=== PATIENT | female | born 2000 | race Caucasian/White ===

== ENCOUNTER 2022-12-20 17:35 | Emergency (ER) | payer MEDICAID, SELFPAY ==
[2022-12-20 17:53] VITALS: BP 127/68; PULSE 96; RESP 16; TEMP 37.3; O2SAT 100
--- NOTE | 2022-12-20 18:38 | ED.FEMALEGU ---
HPI - Female Genitourinary General Chief complaint: Urogenital-Female Stated complaint: Possible UTI Time Seen by Provider: 12/20/22 18:33 Source: patient Mode of arrival: ambulatory Limitations: no limitations History of Present Illness HPI Narrative: Patient presents today stating, ?I have a UTI. ? Questioned, reports dysuria, frequency, or urgency. Denies hematuria, abdominal pain, back pain. She has tried no dxmx-euw-rzyvbxy medication for symptoms prior to arrival. She is not currently menstruating. States she is, ?resistant to Keflex. ? Reports history of frequent UTIs. Related Data Home Medications Medication Instructions Recorded Confirmed aspirin 325 mg tablet 325 mg DIRECTED 12/20/22 12/20/22 dextroamphetamine-amphetamine 10 10 mg DIRECTED 12/20/22 12/20/22 mg tablet sertraline 25 mg tablet 50 mg PO DAILY 12/20/22 12/20/22 Allergies Allergy/AdvReac Type Severity Reaction Status Date / Time No Known Allergies Allergy Verified 12/20/22 18:02 Review of Systems Review of Systems: CONSTITUTIONAL: Denies body aches, fever, chills, or sweats. EYES: Denies visual changes, redness, or discharge. ENT: Denies rhinorrhea, congestion, sore throat, or otalgia. CARDIOVASCULAR: Denies chest pain, palpitations, or edema. RESPIRATORY: Denies cough or dyspnea. GASTROINTESTINAL: Denies abdominal pain, nausea, vomiting, or diarrhea. GENITOURINARY:+ dysuria, urgency, frequency SKIN: Denies rash, itching, or wounds. MUSCULOSKELETAL: Denies back pain, joint pain, or myalgia. NEUROLOGIC: Denies headache, numbness, tingling, or weakness. PSYCH: Denies depression or anxiety. PMFSH Comments At time of signature, I have reviewed and agree with nursing past medical, surgical, social and family history unless otherwise noted. Please see nursing chart for further information. There is no relevant family history pertinent to the presenting complaint Exam Narrative: GENERAL: Well-appearing, well-nourished, and in no acute distress. HEAD: Normocephalic, atraumatic. EYES: EOMI. No redness or drainage. Conjunctivae normal. ENT: Mucous membranes pink and moist. NECK: Normal AROM. CHEST: No respiratory distress. Clear to auscultation. HEART: Regular rate and rhythm. No murmur appreciated. Normal peripheral pulses. ABDOMEN: Soft, nondistended, normal active bowel sounds.+ mild suprapubic tenderness.-CVAT MUSCULOSKELETAL: No bony tenderness. EXTREMITIES: Normal range of motion. No edema. SKIN: Warm, dry, no rash. Capillary refill normal. Normal skin turgor. NEURO: No focal deficits. Alert and oriented x3. Gait steady. PSYCH: Normal affect. No signs of depression or anxiety. Course Course Level of Care: Express Care Visit Vital Signs Vital signs: Vital Signs Temperature 99.1 F 12/20/22 17:53 Pulse Rate 96 12/20/22 17:53 Respiratory Rate 16 12/20/22 17:53 Blood Pressure 127/68 12/20/22 17:53 Pulse Oximetry 100 12/20/22 17:53 Oxygen Delivery Room Air 12/20/22 17:53 Temperature 99.1 F 12/20/22 17:53 Pulse Rate 96 12/20/22 17:53 Respiratory Rate 16 12/20/22 17:53 Blood Pressure 127/68 12/20/22 17:53 Pulse Oximetry 100 12/20/22 17:53 Oxygen Delivery Room Air 12/20/22 17:53 Reviewed. Pt has been instructed to follow up with her PCP regarding her elevated blood pressure today. MDM - Female Genitourinary MDM Narrative Medical decision making narrative: Symptoms and urinalysis consistent with UTI. Will treat with Bactrim. Anticipatory guidance given. Culture pending. Differential Diagnosis Differential diagnosis: Likely urinary tract infection, vaginitis, cystitis and other (Pyelonephritis, interstitial cystitis) Lab Data Attestation: I reviewed the patient's lab results. Labs: Urine Glucose Negative Reference Range: Negative Urine Bilirubin Negative
== END 2022-12-20 18:50 | disposition home or self-care (01) ==
PROVIDERS: Emergency Provider Nurse Practitioner
DX: N30.01 Acute cystitis with hematuria (principal); Z79.82 Long term (current) use of aspirin
CPT/HCPCS: 81003; 87086; 99203; G0463

== ENCOUNTER 2023-01-31 10:34 | Outpatient (CLI) | payer MEDICAID, SELFPAY ==
[2023-01-31 13:08] LABS: Basophils Percent Auto 0.8 % (0.2-1.2); Eosinophils Absolute Auto 0.1 K/mm3 (0-0.3); Eosinophils Percent Auto 2.7 % (0-4.4); Hematocrit 41.3 % (37.0-47.0); Hemoglobin 13.8 g/dL (12.0-15.0); Immature Granulocyte Absolute 0.01 K/mm3 (0.00-0.031); Immature Granulocyte Percent A 0.2 % (0-0.5); Lymphocytes Percent Auto 38.2 % (18.3-44.2); Mean Corpuscular HGB Conc 33.4 g/dl (32-36); Mean Corpuscular Hemoglobin 29.7 pg (26-34); Mean Platelet Volume 10.3 fl (7.4-10.4); Monocytes Absolute Auto 0.4 K/mm3 (0.1-0.6); Neutrophils Absolute Auto 2.6 K/mm3 (1.3-6.7); Neutrophils Percent Auto 50.1 % (45.5-73.1); Platelet Count Result 215 k/mm3 (150-375); Red Blood Count 4.64 M/mm3 (4.2-5.4); Red Cell Distribution Width 12.5 % (11.5-14.5); White Blood Count 5.2 K/mm3 (4.5-10.0)
[2023-01-31 13:16] LABS: Alanine Aminotransferase 22 U/L (6-35); Albumin Level 4.5 g/dL (3.5-5.1); Alkaline Phosphatase 49 U/L (38-126); Anion Gap 6 mmol/L (8-16); Aspartate Amino Transferase 46 U/L (14-36); Bilirubin,Total 2.1 mg/dL (0.2-1.3); Blood Urea Nitrogen 12 mg/dL (7-17); Calcium 9.4 mg/dL (8.4-10.2); Carbon Dioxide 30 mmol/L (22-30); Chloride 102 mmol/L (98-107); Cholesterol 156 mg/dL (0-200); Estimated Glomerular Filt Rate > 60; Glucose 75 mg/dL (65-110); HDL Direct 51 mg/dL; Potassium 3.9 mmol/L (3.4-5.0); Sodium 138 mmol/L (137-145); Triglycerides 100 mg/dL (<150)
[2023-01-31 13:27] LABS: LDL Cholesterol Direct 89 mg/dL
[2023-01-31 13:59] LABS: Free T4 Free Thyroxine 0.93 ng/mL (0.78-2.19)
[2023-02-04 21:34] LABS: Triiodothyronine T3 Free 3.8 pg/mL (3.0-4.7)
[2023-02-05 02:17] LABS: Thyroid Peroxidase Antibodies <1 IU/mL (<9)
== END 2023-01-31 10:35 | disposition home or self-care (01) ==
LOC: ANHGOSHLAB 10:35
PROVIDERS: PCP Family Medicine; Visit Provider Nurse Practitioner Family
DX: E80.4 Gilbert syndrome (principal); F41.9 Anxiety disorder, unspecified; D89.89 Other specified disorders involving the immune mechanism, not elsewhere classified; I73.00 Raynaud's syndrome without gangrene; F32.A Depression, unspecified; R55 Syncope and collapse; F90.9 Attention-deficit hyperactivity disorder, unspecified type; E55.9 Vitamin D deficiency, unspecified; E07.9 Disorder of thyroid, unspecified
CPT/HCPCS: 36415; 80053; 80061; 82306; 82607; 84439; 84443; 84481; 85025; 86376

== ENCOUNTER 2023-02-21 18:12 | Emergency (ER) | payer MEDICAID, SELFPAY | END 2023-02-21 19:02 | disposition home or self-care (01) | PROVIDERS: Emergency Provider Nurse Practitioner; PCP Nurse Practitioner Family | DX: J01.90 Acute sinusitis, unspecified (principal); D84.9 Immunodeficiency, unspecified; F90.9 Attention-deficit hyperactivity disorder, unspecified type; F41.9 Anxiety disorder, unspecified; F32.A Depression, unspecified | CPT/HCPCS: 99213; G0463 ==

== ENCOUNTER 2023-03-12 13:05 | Outpatient (CLI) | payer OTHER, SELFPAY ==
--- NOTE | ~2023-03-12 | US_ITS ---
EXAMINATION: US pelvic complete w TV DATE: 03/12/2023 15:05 INDICATION: Pelvic and perineal pain TECHNIQUE: Multiple transabdominal and endovaginal sonographic images of the pelvis were obtained. COMPARISON: None. FINDINGS: The uterus measures 8.5 x 4.5 x 5.2 cm. The IUD is in expected position. The endometrial co mplex measures 3 mm. The right ovary measures 2.9 x 1.5 x 2.1 cm. The left ovary measures 4.1 x 1.7 x 2.3 cm. There is normal vascular flow in the ovaries. There is no free fluid in the pelvis. IMPRESSION: 1. No sonographic correlate for the patient's symptoms. Reviewed, dictated and finalized at location A.
[2023-03-15 13:14] LABS: NIL 0.02 IU/mL; Quantiferon TB Plus, 1T NEGATIVE (NEGATIVE)
== END 2023-03-12 13:06 | disposition home or self-care (01) ==
PROVIDERS: PCP Nurse Practitioner Family; Visit Provider Nurse Practitioner Family
DX: R10.2 Pelvic and perineal pain (principal); Z30.431 Encounter for routine checking of intrauterine contraceptive device
CPT/HCPCS: 36415; 76830; 76856; 86480

== ENCOUNTER 2023-03-28 17:44 | Outpatient (CLI) | payer OTHER, SELFPAY ==
--- NOTE | ~2023-03-28 | XR_ITS ---
EXAM: XR hip LT 2V w AP pelvis DATE: 03/28/2023 17:59 HISTORY: M25.552 - Pain in left hip X 2-3 DAYS . COMPARISON: None available. FINDINGS: Normal mineralization. IUD projecting within the pelvic ring. No fracture or dislocation. No lytic or blastic lesion. Joint spaces are maintained. No erosion or periosteal change. Soft tissue s within normal limits. IMPRESSION: Normal pelvis and left hip radiograph findings. Reviewed, dictated and finalized at location K.
== END 2023-03-28 17:45 | disposition home or self-care (01) ==
LOC: ANHIMG 17:45
PROVIDERS: PCP Nurse Practitioner Family; Visit Provider Nurse Practitioner Family
DX: M25.552 Pain in left hip (principal)
CPT/HCPCS: 73502

== ENCOUNTER 2023-09-11 14:53 | Emergency (ER) | payer OTHER, SELFPAY ==
[2023-09-11 14:54] VITALS: BP 115/69; PULSE 84; RESP 20; TEMP 36.3; O2SAT 100
--- NOTE | 2023-09-11 19:31 | ED.NAVMDI ---
HPI - Nausea/Vomiting/Diarrhea General Chief complaint: Nausea/Vomiting/Diarrhea Stated complaint: /vomiting Time Seen by Provider: 09/11/23 19:02 Source: patient Limitations: no limitations History of Present Illness HPI Narrative: Patient is a 23-year-old female presents to the emergency department complaining of nausea and vomiting. Patient states that she is 7 weeks tomorrow and has an OB established but has not at her 1st visit yet and it is Dr. Conrad who she has appointment scheduled with on the of this month. Patient states that she is with an uncomplicated previous approximately 5 years ago. Patient states her last menstrual period was July 25 the patient denies any sick contacts. Patient states she began developing nausea and vomiting yesterday and has had multiple episodes daily without any ability to keep things down aside from a preformed she was acute some food down off and then subsequently threw it up later and benign she has been able to keep anything down she was concerned for dehydration and came in for further evaluation. Patient states that she did call her primary care physician who did send in a prescription for Zofran which was just picked up upon arrival to the emergency department which she has not taken any yet. Patient denies diarrhea, bloody bowel movements, vaginal bleeding, abdominal pain, recent injuries, recent illness, sore throat, nasal congestion, cough, chest pain, shortness of breath. Patient admits to history of morning sickness with her previous but did not ever require medications for this. Related Data Allergies Allergy/AdvReac Type Severity Reaction Status Date / Time No Known Allergies Allergy Verified 07/02/23 15:54 Review of Systems Review of Systems: A 10 system review of systems was completed on the patient and is negative except for what is stated in the HPI. Nursing and ancillary documentation was reviewed. [facility] Past Medical History Medical History (Updated 09/11/23 @ 20:05 by Zechariah Koehler DO) IUD surveillance removed 07/02/2023 Social History Social History (Updated 07/02/23 @ 15:57 by Tonya Holly) Years smoked: 2 Smoking status: Former smoker Substance use: never Lack of Transportation: No Lack of Food: Never True Current Housing: I Have Housing Concerned About Future Housing: No Difficulty Paying Gas/Electric Bills: No Difficulty Paying for Meds: No Currently Unemployed: No Education: High School Diploma/GED Comments At time of signature, I have reviewed and agree with nursing past medical, surgical, social and family history unless otherwise noted. Please see the nursing chart for further information. There is no relevant family history pertinent to the presenting complaint. Exam Narrative: CONST: No acute distress. Well nourished. HENMT: Head is normocephalic and atraumatic. Tacky mucous membranes. No posterior oropharynx erythema. EYES: No conjunctival icterus, injection, or pallor. PERRL. NECK: No meningeal signs. RESP: Able to speak in full sentences. Normal respiratory effort. CTAB. CARDIO: Regular rate. Regular rhythm. 2+ DP and radial pulses bilaterally. GI: Nondistended. No tenderness to palpation. Soft. : No CVA tenderness to palpation. SKIN: No rashes or lesions noted on exposed skin. NEURO: Oriented x3. Moves all extremities. EXTREM/MSK/BACK: No pedal edema. PSYCH: Normal affect. Course Vital Signs Vital signs: Vital Signs Temperature 97.3 F L 09/11/23 14:54 Pulse Rate 84 09/11/23 14:54 Respiratory Rate 09/11/23 14:54 Blood Pressure 115/69 09/11/23 14:54 Pulse Oximetry 100 09/11/23 14:54 Oxygen Delivery Room Air 09/11/23 14:54 Temperature 97.3 F L 09/11/23 14:54 Pulse Rate 84 09/11/23 14:54 Respiratory Rate 20 09/11/23 14:54 Blood Pressure 115/69 09/11/23 14:54 Pulse Oximetry 100 09/11/23 14:
[2023-09-11 19:51] LABS: Appearance Urine Clear (Clear); Bilirubin Urine Negative (Negative); Blood Urine Negative (Negative); Color Urine Yellow (Yellow); Glucose Urine UA Negative (Negative); Ketones Urine Negative (Negative); Leukocyte Esterase Ur Negative LEU/UL (Negative); Nitrate Urine Negative (Negative); Protein Urine Negative (Negative); Specific Grav Ur 1.021 (1.001-1.035)
[2023-09-11 19:53] LABS: Basophils Percent Auto 0.4 % (0.2-1.2); Eosinophils Absolute Auto 0.2 K/mm3 (0-0.3); Eosinophils Percent Auto 1.9 % (0-4.4); Hematocrit 41.3 % (37.0-47.0); Hemoglobin 13.5 g/dL (12.0-15.0); Immature Granulocyte Absolute 0.02 K/mm3 (0.00-0.031); Immature Granulocyte Percent A 0.3 % (0-0.5); Lymphocytes Absolute Auto 2.25 K/mm3 (0.9-3.2); Lymphocytes Percent Auto 28.2 % (18.3-44.2); Mean Corpuscular HGB Conc 32.7 g/dl (32-36); Mean Corpuscular Hemoglobin 28.4 pg (26-34); Mean Corpuscular Volume 86.9 fl (80-100); Mean Platelet Volume 9.9 fl (7.4-10.4); Monocytes Absolute Auto 0.6 K/mm3 (0.1-0.6); Monocytes Percent Auto 7.3 % (2.6-8.5); Neutrophils Percent Auto 61.9 % (45.5-73.1); Platelet Count Result 223 k/mm3 (150-375); Red Blood Count 4.75 M/mm3 (4.2-5.4)
[2023-09-11 19:54] LABS: Add Urine Microscopic? NO
[2023-09-11 20:06] LABS: Alanine Aminotransferase 16 U/L (6-35); Albumin Level 4.3 g/dL (3.5-5.1); Alkaline Phosphatase 47 U/L (38-126); Anion Gap 7 mmol/L (8-16); Aspartate Amino Transferase 24 U/L (14-36); Bilirubin,Total 1.6 mg/dL (0.2-1.3); Blood Urea Nitrogen 8 mg/dL (7-17); Calcium 9.4 mg/dL (8.4-10.2); Carbon Dioxide 27 mmol/L (22-30); Chloride 102 mmol/L (98-107); Estimated CRCL calculation 108 ml/min; Estimated Glomerular Filt Rate > 60; Glucose 91 mg/dL (65-110); Lipase 78 U/L (23-300); Potassium 3.8 mmol/L (3.4-5.0); Sodium 136 mmol/L (137-145)
[2023-09-11] MEDS: SODIUM CHLORIDE 0.9% IV 1,000 ML 999 ML IV CONT ×2 (20:34→20:35)
[2023-09-11] MEDS: ONDANSETRON INJ 4 MG/2 ML VIAL IV PUSH (20:35)
--- NOTE | 2023-09-11 21:14 | PC.NURSE ---
Pt ate a bag of chips and drank a glass of water. Pt denies any n/v. No complaints at this time.
[2023-09-11 22:35] VITALS: BP 121/68; PULSE 84; RESP 16; O2SAT 98
== END 2023-09-11 22:35 | disposition home or self-care (01) ==
PROVIDERS: Emergency Provider Student in an Organized Health Care Education/Training Program; PCP Nurse Practitioner Family
DX: O21.9 Vomiting of pregnancy, unspecified (principal); Z87.891 Personal history of nicotine dependence; Z3A.01 Less than 8 weeks gestation of pregnancy
CPT/HCPCS: 36415; 80053; 81003; 83690; 83735; 84702; 85025; 96361; 96374; 99284; J2405; J7030

== ENCOUNTER 2023-10-03 08:41 | Outpatient (CLI) | payer OTHER, SELFPAY ==
--- NOTE | ~2023-10-03 | US_ITS ---
EXAMINATION: US OB <= 14 weeks fetus DATE: 10/03/2023 10:17 INDICATION: Amenorrhea, unspecified. TECHNIQUE: Real-time transabdominal and transvaginal pelvic ultrasound was performed. COMPARISON: None. FINDINGS: TRANSABDOMINAL ULTRASOUND: The uterus measures 11.0 x 6.2 x 7.4 cm. TRANSVAGINAL ULTRASOUND: There is an intrauterine gestational sac. A yolk sac is identified. The fet al crown rump length measures 3.1 cm, which correlates with an estimated gestational age of 10 weeks and 0 day(s) (+/-) 6 day(s). heart motion is identified measuring 165 beats per minute (bpm) by M-mode Doppler. The right ovary measures 2.7 x 1.7 x 2.2 cm. The left ovary measures 4.2 x 2.0 x 2.9 cm. There is no free fluid in the pelvis. IMPRESSION: 1. Single living intrauterine gestation with estimated date of delivery of 04/30/24. Reviewed, dictated and finalized at location E. AL EFFECTS EDITOR IMPRESSION: 1. Single living intrauterine gestation with estimated date of delivery of 04/11 10/03.
[2023-10-03 09:19] LABS: Basophils Percent Auto 0.5 % (0.2-1.2); Eosinophils Absolute Auto 0.1 K/mm3 (0-0.3); Eosinophils Percent Auto 1.6 % (0-4.4); Hematocrit 40.9 % (37.0-47.0); Hemoglobin 13.4 g/dL (12.0-15.0); Immature Granulocyte Absolute 0.01 K/mm3 (0.00-0.031); Immature Granulocyte Percent A 0.2 % (0-0.5); Lymphocytes Absolute Auto 1.36 K/mm3 (0.9-3.2); Mean Corpuscular HGB Conc 32.8 g/dl (32-36); Mean Corpuscular Hemoglobin 28.5 pg (26-34); Mean Platelet Volume 9.6 fl (7.4-10.4); Monocytes Absolute Auto 0.4 K/mm3 (0.1-0.6); Monocytes Percent Auto 5.7 % (2.6-8.5); Neutrophils Absolute Auto 4.3 K/mm3 (1.3-6.7); Platelet Count Result 202 k/mm3 (150-375); White Blood Count 6.2 K/mm3 (4.5-10.0)
[2023-10-03 10:11] LABS: HIV 1/2 Ab P24 Ag Result Negative (Negative)
[2023-10-03 10:18] LABS: Hepatitis B Surface Antigen Negative (Negative)
[2023-10-03 10:24] LABS: Rubella IgG Antibody > 110.0 IU/ML
[2023-10-04 14:45] LABS: Rapid Plasma Reagin Non-Reactive (NonReactive)
[2023-10-08 09:25] LABS: CMV IgG Antibody <0.60 U/mL (<0.60)
[2023-10-11 19:27] LABS: CF Result NEGATIVE (NEGATIVE); Ethnicity W; SMA 2.0 RISK VARIANT NOT DETECTED
[2023-10-17 15:33] LABS: SMA Results Received Yes
== END 2023-10-03 08:42 | disposition home or self-care (01) ==
PROVIDERS: PCP Nurse Practitioner Family; Visit Provider Student in an Organized Health Care Education/Training Program
DX: N94.89 Other specified conditions associated with female genital organs and menstrual cycle (principal); N91.2 Amenorrhea, unspecified
CPT/HCPCS: 36415; 76801; 81220; 81329; 84702; 85025; 86592; 86644; 86703; 86747; 86762; 86787; 86850; 86900; 86901; 87086; 87340; G0432

== ENCOUNTER 2023-10-04 13:34 | Emergency (ER) | payer OTHER, SELFPAY ==
[2023-10-04] VITALS (16 sets, daily range): BP systolic 93–126; BP diastolic 59–84; PULSE 66–97; RESP 14–20; TEMP 36.6; O2SAT 99–100
--- NOTE | ~2023-10-04 | CT_ITS ---
EXAMINATION: CTA chest PE protocol DATE: 10/04/2023 16:41 INDICATION: Chest pain. Shortness of breath. TECHNIQUE: Computed tomography angiography (CTA) of the chest was performed with 100 mL Omnipaque-350 intravenous contrast timed to evaluate the pulmonary arteries. Coronal maximum intensity projection 3D-reconstructions were created by the technologist. Automated exposure control and iterative reconst ruction technique were employed. The dose-length product was 128.74 mGy-cm. COMPARISON: Chest 2 views 10/04/2023 FINDINGS: There is no pneumonia or pleural effusion. The heart size is normal. No pericardial effusio n. There is no pulmonary embolus. The bones are unremarkable. IMPRESSION: 1. No pulmonary embolus. Reviewed, dictated and finalized at location E. CTOR OF LABORATORY OPERATIONS IMPRESSION: 1. No pulmonary embolus.
--- NOTE | ~2023-10-04 | XR_ITS ---
EXAMINATION: XR chest 2V 10/04/2023 14:15 INDICATION: Chest tightness and shortness of breath PROCEDURE: 2 view chest COMPARISON:No prior studies for comparison. FINDINGS: The lungs are clear. The cardiomediastinal silhouette is within normal limits. There are no pleural effusions. There is no pneumothorax suspected. IMPRESSION: 1: NO ACUTE CARDIOPULMONARY DISEASE. Reviewed, dictated and finalized at location L. H BLEACHING RANGE BACK TENDER
--- NOTE | 2023-10-04 13:38 | ECG_ITS ---
Measurements Intervals [place] Rate: 101 P: 78 IA: 134 QRS: 92 QRSD: 89 T: 31 QT: 338 QTc: 440 Interpretive Statements SINUS TACHYCARDIA RIGHT AXIS DEVIATION INCOMPLETE RIGHT BUNDLE BRANCH BLOCK CONSIDER ANTERIOR INFARCT, AGE INDETERMINATE BORDERLINE ST-T WAVE ABNORMALITY- INFERIOR LEADS ABNORMAL ECG NO PREVIOUS ECG AVAILABLE FOR COMPARISON Electronically Signed On 10-04-2023 13:56:06 ASSISTANT PROFESSOR OF PHILOSOPHY by Darnell Murodck D.O.
[2023-10-04 14:00] LABS: Basophils Percent Auto 0.2 % (0.2-1.2); Eosinophils Absolute Auto 0.1 K/mm3 (0-0.3); Eosinophils Percent Auto 1.5 % (0-4.4); Hematocrit 35.7 % (37.0-47.0); Hemoglobin 12.1 g/dL (12.0-15.0); Immature Granulocyte Absolute 0.03 K/mm3 (0.00-0.031); Immature Granulocyte Percent A 0.4 % (0-0.5); Lymphocytes Absolute Auto 1.92 K/mm3 (0.9-3.2); Lymphocytes Percent Auto 22.7 % (18.3-44.2); Mean Corpuscular HGB Conc 33.9 g/dl (32-36); Mean Corpuscular Hemoglobin 28.9 pg (26-34); Mean Corpuscular Volume 85.4 fl (80-100); Mean Platelet Volume 9.5 fl (7.4-10.4); Monocytes Absolute Auto 0.6 K/mm3 (0.1-0.6); Monocytes Percent Auto 6.8 % (2.6-8.5); Neutrophils Absolute Auto 5.8 K/mm3 (1.3-6.7); Neutrophils Percent Auto 68.4 % (45.5-73.1); Platelet Count Result 197 k/mm3 (150-375); Red Blood Count 4.18 M/mm3 (4.2-5.4); Red Cell Distribution Width 12.9 % (11.5-14.5); White Blood Count 8.4 K/mm3 (4.5-10.0)
[2023-10-04 14:11] LABS: Partial Thromboplastin Time 28.9 SECONDS (22.3-36.8); Prothrombin Time 13.2 Seconds (11.1-14.7)
[2023-10-04 14:12] LABS: Alanine Aminotransferase 14 U/L (6-35); Albumin Level 4.1 g/dL (3.5-5.1); Alkaline Phosphatase 40 U/L (38-126); Anion Gap 7 mmol/L (8-16); Aspartate Amino Transferase 24 U/L (14-36); Bilirubin,Total 0.9 mg/dL (0.2-1.3); Blood Urea Nitrogen 14 mg/dL (7-17); Calcium 9.1 mg/dL (8.4-10.2); Carbon Dioxide 25 mmol/L (22-30); Chloride 102 mmol/L (98-107); Estimated CRCL calculation 112 ml/min; Estimated Glomerular Filt Rate > 60; Glucose 103 mg/dL (65-110); Lipase 92 U/L (23-300); Potassium 4.1 mmol/L (3.4-5.0); Sodium 134 mmol/L (137-145)
[2023-10-04 14:21] LABS: Troponin I < 0.012 ng/mL (0.000-0.034)
--- NOTE | 2023-10-04 14:34 | ED.GENADULT ---
HPI - General Adult General Chief complaint: Arrhythmia/Palpitations Stated complaint: heart pal Time Seen by Provider: 10/04/23 14:15 Source: patient and family (partner) Mode of arrival: ambulatory Limitations: no limitations History of Present Illness HPI narrative: 23 yo female at 10w1d GA by LMP 07/25/23 presents with chest pain and shortness of breath today while at work. She describes the chest symptoms as a pressure. No underlying respiratory or cardiac issues although currently undergoing work up and assessment for possible POTS with her PCP and sees rheumatology. She was experiencing heart palpitations, worse with exertion. 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 has been confirmed to be intrauterine by verbal report as patient had an US yesterday. Follows with OBGyn Dr Hill. Has not worn an event/Holter monitor. She also notes she was experiencing some mild RLQ pain earlier today. No vaginal bleeding. States it felt different than round ligament pain. Has not yet been able to take acetaminophen as didn't have any at work. No lower extremity edema. [place] nauseated earlier this morning but this has been typical and was better after Zofran. Has an appetite now. No vomiting or diarrhea. States she had a low grade fever 1 week ago but not since. Has had some intermittent constipation but this resolved; LBM yesterday. Has an occasional / rare cough. Related Data Home Medications Medication Instructions Recorded Confirmed vits no.126-ferrous fum tablet PO 09/28/23 09/28/23 28 mg iron-folic acid 800 mcg tablet (Classic ) Allergies Allergy/AdvReac Type Severity Reaction Status Date / Time No Known Allergies Allergy Verified 09/28/23 09:12 [facility] Past Medical History Medical History (Updated 10/05/23 @ 00:00 by Dariela Wick) IUD surveillance removed 07/02/2023 Suppression of menses Social History Social History Years smoked: 2 Smoking status: Former smoker Alcohol intake: former Substance use: never Do You Feel Safe in your Home?: Yes Lack of Transportation: No Lack of Food: Never True Current Housing: I Have Housing Concerned About Future Housing: No Difficulty Paying Gas/Electric Bills: No Difficulty Paying for Meds: No Currently Unemployed: No Education: High School Diploma/GED Difficulty w/ Childcare or Family Care: No Living arrangements: with family Occupation/Education: occupation 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 HEAD: Normocephalic, atraumatic. EYES: Non injected, non icteric ENT: Nares clear, no rhinorrhea or epistaxis. NECK: Supple. CHEST: Clear to auscultation. No respiratory distress. Speaking in full sentences. HEART: Regular rate and rhythm. . ABDOMEN: Soft, nondistended. No TTP x4 quadrants. EXTREMITIES: Normal range of motion. No edema bilaterally. SKIN: Warm, dry, no rash. NEURO: No focal deficits. Alert and oriented x3. PSYCH: Normal mood and affect. Course Vital Signs Vital signs: Vital Signs Temperature 97.9 F 10/04/23 13:42 Pulse Rate 97 10/04/23 13:42 Respiratory Rate 15 10/04/23 13:42 Blood Pressure 126/76 10/04/23 13:42 Pulse Oximetry 100 10/04/23 13:42 Oxygen Delivery Room Air 10/04/23 13:42 Temperature 97.9 F 10/04/23 13:42 Pulse Rate 83 10/04/23 16:30 Respiratory Rate 20 10/04/23 16:30 Blood Pressure 105/59 L 10/04/23 16:30 Pulse Oximetry 100 10/04/23 16:30 Oxygen Delivery Room Air 10/04/23 13:42 Medical Decision Making MDM Narrative Medical decision making narrative: Patient is a 23 yo female at 10w1d GA by LMP 07/25/23 and with a confirmed IUP by verbal
[2023-10-04 15:02] LABS: D Dimer 0.56 ug/mL (<0.48)
[2023-10-04] MEDS: ACETAMINOPHEN 325 MG TABLET 650 MG PO (15:06)
[2023-10-04 15:22] LABS: Influenza A QL RT-PCR Negative (Negative); Influenza B QL RT-PCR Negative (Negative); RSV RNA, RT-PCR Negative (Negative); SARS-CoV-2 RNA PCR Negative (Negative)
--- NOTE | 2023-10-04 16:53 | ECG_ITS ---
Measurements Intervals [place] Rate: 70 P: 52 ME: 145 QRS: 82 QRSD: 88 T: 44 QT: 397 QTc: 429 Interpretive Statements SINUS RHYTHM INCOMPLETE RIGHT BUNDLE BRANCH BLOCK BORDERLINE R WAVE PROGRESSION, ANTERIOR LEADS BORDERLINE ST-T WAVE ABNORMALITY- ANTERIOR LEADS BASELINE WANDER- AVR, AVL, AVF BORDERLINE ECG COMPARED TO ECG 10/04/2023 13:41:39 SINUS RHYTHM NOW PRESENT Electronically Signed On 10-05-2023 15:55:30 GENETIC COUNSELOR by Darnell Murdock D.O.
[2023-10-04 17:38] LABS: Troponin I < 0.012 ng/mL (0.000-0.034)
== END 2023-10-04 18:18 | disposition home or self-care (01) ==
PROVIDERS: Emergency Medicine; Emergency Provider Student in an Organized Health Care Education/Training Program; PCP Nurse Practitioner Family
DX: O26.891 Other specified pregnancy related conditions, first trimester (principal); R07.89 Other chest pain; R06.02 Shortness of breath; R10.31 Right lower quadrant pain; Z20.822 Contact with and (suspected) exposure to COVID-19; Z87.891 Personal history of nicotine dependence; R00.0 Tachycardia, unspecified; I45.10 Unspecified right bundle-branch block; R94.31 Abnormal electrocardiogram [ECG] [EKG]
CPT/HCPCS: 36415; 71046; 71275; 80053; 83690; 84484; 85025; 85380; 85610; 85730; 87637; 93005; 99284; A9270; Q9967

== ENCOUNTER 2023-10-18 18:57 | Emergency (ER) | payer OTHER, SELFPAY ==
[2023-10-18 19:24] VITALS: BP 100/61; PULSE 85; RESP 18; TEMP 36.6; O2SAT 100
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
[2023-10-18 19:30] VITALS: BP 100/61; PULSE 85; RESP 18; TEMP 36.6; O2SAT 100
== END 2023-10-18 19:36 | disposition short-term general hospital (02) ==
PROVIDERS: Emergency Provider Nurse Practitioner; PCP Nurse Practitioner Family
DX: O9A.211 Injury, poisoning and certain other consequences of external causes complicating pregnancy, first trimester (principal); Z3A.12 12 weeks gestation of pregnancy; S09.90XA Unspecified injury of head, initial encounter; Y04.2XXA Assault by strike against or bumped into by another person, initial encounter; Y99.0 Civilian activity done for income or pay; O99.891 Other specified diseases and conditions complicating pregnancy; Z3A.00 Weeks of gestation of pregnancy not specified; R51.9 Headache, unspecified; H53.9 Unspecified visual disturbance; O21.9 Vomiting of pregnancy, unspecified; Z87.891 Personal history of nicotine dependence
CPT/HCPCS: 99213; G0463

== ENCOUNTER 2023-10-18 19:51 | Emergency (ER) | payer OTHER, SELFPAY ==
--- NOTE | ~2023-10-18 | CT_ITS ---
Noncontrast CT scan of the cervical spine Technique: Multiple contiguous axial [address] images of the cervical spine were obtained and rec onstructed in 2D sagittal and coronal planes on the acquisition scanner. Dose reduction technique was used on this scan by utilizing automated exposure control, adjustment of the mA and/or kV according to patient size. The dose-length product (DLP) was 129.38 mGy-cm. Clinical History: Pain Findings: No fractures or dislocations. Unremarkable visualized bony structures. The intervertebral disc spaces are preserved. No prevertebral soft tissue swelling. Impression: No fracture or subluxation of the cervical spine. Reviewed, dictated and finalized at location . ESSOR OF MEDICINE Impression: No fracture or subluxation of the cervical spine.
--- NOTE | ~2023-10-18 | CT_ITS ---
Non-contrast Head CT History: Head injury Technique: Axial non-contrast imaging of the brain was performed. Dose reduction technique was used on this scan by utilizing automated exposure control and iterative reconstruction technique. The dose -length product (DLP) was 605.33 mGy-cm. Findings: There is no evidence of intracranial hemorrhage, mass lesion, or acute infarct. Brain par enchyma appears normal. The ventricles and subarachnoid spaces are normal in size. The calvarium ap pears normal. The visualized paranasal sinuses and mastoid air cells are clear. Impression: No significant abnormality seen. Reviewed, dictated and finalized at [facility]. EM SUPPORT TECHNICIAN Impression: No significant abnormality seen.
[2023-10-18 20:22] VITALS: BP 118/67; PULSE 87; RESP 14; TEMP 36.3; O2SAT 100
[2023-10-18 23:47] VITALS: BP 98/55; PULSE 70; RESP 14; TEMP 36.3; O2SAT 100
[2023-10-19 00:26] VITALS: O2SAT 98
--- NOTE | 2023-10-19 00:51 | PC.NURSE ---
Pt to CT at this time.
[2023-10-19] MEDS: SODIUM CHLORIDE 0.9% IV 1,000 ML 999 ML IV CONT (01:42)
[2023-10-19] MEDS: METOCLOPRAMIDE HCL INJ 10 MG/2 ML VIAL IV PUSH (01:42)
[2023-10-19] MEDS: diphenhydrAMINE HCl INJ 50 MG/ML VIAL IV PUSH (01:42)
[2023-10-19 01:44] VITALS: BP 103/63; PULSE 78; RESP 19; O2SAT 98
[2023-10-19 01:53] LABS: Basophils Percent Auto 0.4 % (0.2-1.2); Eosinophils Absolute Auto 0.2 K/mm3 (0-0.3); Eosinophils Percent Auto 3.1 % (0-4.4); Hematocrit 36.9 % (37.0-47.0); Hemoglobin 12.2 g/dL (12.0-15.0); Immature Granulocyte Absolute 0.01 K/mm3 (0.00-0.031); Immature Granulocyte Percent A 0.1 % (0-0.5); Lymphocytes Absolute Auto 1.97 K/mm3 (0.9-3.2); Lymphocytes Percent Auto 26.8 % (18.3-44.2); Mean Corpuscular HGB Conc 33.1 g/dl (32-36); Mean Corpuscular Hemoglobin 28.6 pg (26-34); Mean Corpuscular Volume 86.6 fl (80-100); Mean Platelet Volume 10.1 fl (7.4-10.4); Monocytes Absolute Auto 0.6 K/mm3 (0.1-0.6); Monocytes Percent Auto 7.5 % (2.6-8.5); Neutrophils Absolute Auto 4.6 K/mm3 (1.3-6.7); Neutrophils Percent Auto 62.1 % (45.5-73.1); Platelet Count Result 197 k/mm3 (150-375); Red Blood Count 4.26 M/mm3 (4.2-5.4); Red Cell Distribution Width 13.4 % (11.5-14.5); White Blood Count 7.4 K/mm3 (4.5-10.0)
[2023-10-19 02:01] LABS: Appearance Urine Turbid (Clear); Bacteria Urine None Seen /hpf; Bilirubin Urine Negative (Negative); Blood Urine Negative (Negative); Color Urine Yellow (Yellow); Glucose Urine UA Negative (Negative); Ketones Urine Negative (Negative); Leukocyte Esterase Ur Negative LEU/UL (Negative); Nitrate Urine Negative (Negative); Non Pathogenic Casts 0-2; Protein Urine Negative (Negative); RBC Urine 0-2 /hpf (0-2); Specific Grav Ur 1.022 (1.001-1.035); Squamous Epithelial Cell Urine None seen /hpf (Few); WBC Urine 0-5 /hpf; pH Urine 8.5 (5.0-9.0)
[2023-10-19 02:07] LABS: Alanine Aminotransferase 14 U/L (6-35); Albumin Level 3.9 g/dL (3.5-5.1); Alkaline Phosphatase 39 U/L (38-126); Anion Gap 7 mmol/L (8-16); Aspartate Amino Transferase 28 U/L (14-36); Blood Urea Nitrogen 11 mg/dL (7-17); Calcium 9.3 mg/dL (8.4-10.2); Carbon Dioxide 23 mmol/L (22-30); Chloride 104 mmol/L (98-107); Estimated CRCL calculation 95 ml/min; Estimated Glomerular Filt Rate > 60; Glucose 80 mg/dL (65-110); Potassium 3.9 mmol/L (3.4-5.0); Sodium 134 mmol/L (137-145)
[2023-10-19 02:12] LABS: Add Urine Microscopic? NO
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
[2023-10-19 02:51] VITALS: BP 112/70; PULSE 65; RESP 19; O2SAT 100
== END 2023-10-19 02:52 | disposition home or self-care (01) ==
PROVIDERS: Emergency Provider Emergency Medicine; PCP Nurse Practitioner Family
DX: O9A.211 Injury, poisoning and certain other consequences of external causes complicating pregnancy, first trimester (principal); S06.0X0A Concussion without loss of consciousness, initial encounter; Z87.891 Personal history of nicotine dependence; Z3A.12 12 weeks gestation of pregnancy; W51.XXXA Accidental striking against or bumped into by another person, initial encounter
CPT/HCPCS: 36415; 70450; 72125; 80053; 81003; 85025; 96361; 96374; 96375; 99284; J1200; J2765; J7030

== ENCOUNTER 2023-12-13 10:58 | Observation (INO) | payer OTHER, SELFPAY ==
[2023-12-13 11:15] VITALS: BP 108/60; PULSE 69
[2023-12-13 11:30] VITALS: BP 105/59; PULSE 83
[2023-12-13 11:45] VITALS: BP 102/56; PULSE 73
[2023-12-13 12:21] LABS: Appearance Urine Clear (Clear); Bilirubin Urine Negative (Negative); Blood Urine Negative (Negative); Color Urine Yellow (Yellow); Glucose Urine UA Negative (Negative); Ketones Urine Negative (Negative); Leukocyte Esterase Ur Trace LEU/UL (Negative); Nitrate Urine Negative (Negative); Protein Urine Negative (Negative); Specific Grav Ur 1.014 (1.001-1.035); Urobilinogen Urine 0.2 mg/dL (<2.0)
[2023-12-13 13:04] LABS: Add Urine Microscopic? YES; RBC Urine 0-2 /hpf (0-2)
[2023-12-13 13:05] LABS: Bacteria Urine 2+ /hpf; Squamous Epithelial Cell Urine Few /hpf (Few); WBC Urine 0-5 /hpf (0-3)
--- NOTE | 2023-12-13 14:34 | OBADM ---
This patient, Tyree Gilbert, admitted to the OB room OB Post 116 for observation. Patient/family oriented to hospital policies and general routines including ID bracelet, bed and alarms, visiting hours, pain management, procedures, bathroom and other care routines, personal items, smoking policy, room service/diet, and visiting hours. Patient/Family are encouraged to report perceived risks to care and to ask questions if they do not understand what they are told or what they should do.
--- NOTE | 2023-12-14 09:36 | P.PNOB_ITS ---
OB - Triage/Final Diagnosis Visit Information Date of evaluation: 12/13/23 Reason for evaluation: threatened labor Comments/Additional reasons for admission: I have assessed the risk for this patient, Tyree Gilbert, and determined that she would benefit from observation care. Evaluation Laboratory results: Laboratory Tests 12/13/23 11:56 Urine Color Yellow Urine Appearance Clear Urine pH 7.0 Ur Specific [place] 1.014 Urine Protein Negative Urine Glucose (UA) Negative Urine Ketones Negative Ur Blood (Man) Negative Urine Nitrate Negative Urine Bilirubin Negative Urine Urobilinogen 0.2 Ur Leukocyte Esterase Trace H Urine RBC 0-2 Urine WBC 0-5 Ur Squamous Epith Cells Few Urine Bacteria 2+ H Vital signs: Vital Signs - 24 hr 12/13/23 11:15 12/13/23 11:30 12/13/23 11:45 Pulse Rate 69 83 73 Blood Pressure 108/60 105/59 L 102/56 L Oxygen Delivery 12/13/23 10:58 Pulse Rate Blood Pressure Oxygen Delivery Room Air
== END 2023-12-13 13:00 | disposition home or self-care (01) ==
PROVIDERS: Admitting Provider Student in an Organized Health Care Education/Training Program; PCP Nurse Practitioner Family; Visit Provider Student in an Organized Health Care Education/Training Program
DX: O47.9 False labor, unspecified (principal); Z3A.00 Weeks of gestation of pregnancy not specified
CPT/HCPCS: 81001; 87086; G0378; G0379

== ENCOUNTER 2023-12-18 10:59 | Outpatient (CLI) | payer OTHER, SELFPAY ==
--- NOTE | ~2023-12-18 | US_ITS ---
EXAMINATION: US OB /maternal detail DATE: 12/18/2023 12:34 INDICATION: Encounter for supervision of normal TECHNIQUE: Multiple obstetric sonographic images performed. FINDINGS: There is a single living fetus in vertex presentation. The placenta is anterior and not low-lying wi th caudal margin 5.9 cm from the internal cervical os. Amniotic fluid volume is subjectively normal. Deepest vertical pocket measurement of 4.9 cm which is normal. heart rate of 132 beats per rome te. The following anatomy was identified as normal: Spine Heart Diaphragm Stomach Kidneys Bladder 3 vessel cord and cord insertion Bilateral upper and lower extremities including hands and feet The images of the head are obtained in suboptimal oblique projection which limits evaluation. O n the cine images the cerebellum, cisterna magna, nuchal fold, ventricles, choroid plexus and falx ar e normal. Normal cavum septum pellucidum unable to be definitively established. Normal nasal bone and no evident defect at the upper lip although again evaluation is suboptimal.. The following biometric data were obtained: BPD: 5.2 cm -> 21 weeks 5 days Head circumference: 19.6 cm -> 21 weeks 6 days Abdominal circumference: 16.0 cm -> 21 weeks 1 days Femur length: 3.1 cm -> 19 weeks 3 days These measurements are concordant. Head circumference to abdominal circumference ratio: 1.23 (normal range 1.06-1.25). Estimated weight: 361 g (+/-) 54 g. or 13 oz. (+/-) 2 oz. IMPRESSION: 1. Single living fetus with vertex presentation with heart rate of 132 bpm. 2. Biometric data concordant within 1 day of the previously estimated gestational age by ultrasound o f 20 weeks 1 day(s) with ultrasound estimated date of delivery (SERGIO) of 04/30/24 based upon the [facility] ultrasound performed at this institution on 10/03/2023. Estimated weight is 29th percentile by Hadlock criteria when 04/30/2024 is used as the SERGIO. Please correlate with clinical information or ea [facility] ultrasounds for most accurate SERGIO. 3. Normal anatomic survey excluding the head. No definitive abnormalities identified at the [facility] however assessment is significantly limited by positioning with evaluation based upon assessm ent on cine images in nonstandard projections. Reviewed, dictated and finalized at location B. IMPRESSION: 1. Single living fetus with vertex presentation with heart rate of 132 b pm. 2. Biometric data concordant within 1 day of the previously estimated gestation al age by ultrasound of 20 weeks 1 day(s) with ultrasound estimated date of del antony (SERGIO) of 04/30/24 based upon the earlier ultrasound performed at this inst itution on 10/03/2023. Estimated weight is 29th percentile by Hadlock crit erotf when 04/30/2024 is used as the SERGIO. Please correlate with clinical informat ion or earlier ultrasounds for most accurate SERGIO. 3. Normal anatomic survey excluding the head. No definitive abnormalities identified at the head however assessment is significantly limited by po sitioning with evaluation based upon assessment on cine images in nonstandard p rojections.
== END 2023-12-18 11:00 | disposition home or self-care (01) ==
PROVIDERS: PCP Nurse Practitioner Family; Visit Provider Student in an Organized Health Care Education/Training Program
DX: Z34.90 Encounter for supervision of normal pregnancy, unspecified, unspecified trimester (principal); Z3A.20 20 weeks gestation of pregnancy
CPT/HCPCS: 76805

== ENCOUNTER 2024-01-03 17:07 | Emergency (ER) | payer OTHER, SELFPAY ==
[2024-01-03 17:21] VITALS: BP 112/61; PULSE 91; RESP 18; TEMP 36.3; O2SAT 100
--- NOTE | 2024-01-03 17:24 | ECG_ITS ---
SEE SCANNED COPY FOR CONFIRMED REPORT MTDD
--- NOTE | 2024-01-03 17:24 | ED.URI ---
HPI - URI/Sore Throat General Chief Complaint: Upper Respiratory Infection Stated Complaint: congestion,chest pain Time Seen by Provider: 01/03/24 17:20 Source: patient Mode of arrival: ambulatory Limitations: no limitations History of Present Illness HPI Narrative: Tyree is a 23-year-old female patient presenting to the clinic today with complaints of sore throat, cough, and congestion for the past 5 days. She denies any fevers/chills. Feels as though there is draining going in the back of her throat. States that she developed some chest pain today when taking deep breaths. States that the pain does go weight when she holds her breath. Pain is to the bilateral ribs just below the breast and in the center of her chest. States it is a burning/stabbing pain. Pain does not radiate. History of anticardiolipin antibody syndrome. Takes 2 baby aspirins a day for this. Denies any shortness of breath. 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 MD elicited complaint: cough, sore throat, nasal congestion and other (Chest discomfort) Related Data Home Medications Medication Instructions Recorded Confirmed sertraline 50 mg tablet 50 mg PO DAILY 11/30/23 01/03/24 aspirin 81 mg tablet 162 mg PO DAILY 01/03/24 Allergies Allergy/AdvReac Type Severity Reaction Status Date / Time No Known Allergies Allergy Verified 01/03/24 17:19 Review of Systems Review of Systems: Pertinent positives per HPI. Patient denies any fever, chills, rash, headache, visual changes, dizziness, cough, shortness of breath, chest pain, palpitations, nausea, vomiting, diarrhea, constipation, abdominal pain, or any urinary issues. [facility] Past Medical History Medical History IUD surveillance removed 07/02/2023 Suppression of menses Social History Social History Years smoked: 2 Smoking status: Former smoker Alcohol intake: former Substance use: never Do You Feel Safe in your Home?: Yes Lack of Transportation: No Lack of Food: Never True Current Housing: I Have Housing Concerned About Future Housing: No Difficulty Paying Gas/Electric Bills: No Difficulty Paying for Meds: No Currently Unemployed: No Education: High School Diploma/GED Difficulty w/ Childcare or Family Care: No Living arrangements: with family 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 There is no relevant family history pertinent to the patient complaint. Exam Narrative: General: Well-developed, well nourished, in no apparent distress Head: Normocephalic, atraumatic Eyes: Pupils equally round and reactive to light bilaterally, EOM intact, sclera and conjunctive clear, no discharge, lids normal Ears: TMs intact and clear, ear canals clear, no drainage, grossly hearing normal. Nose: Nares patent, clear discharge, no inflammation, no sinus tenderness. Mouth: Oral pharynx red without lesions or masses, good dentition, MMM. Neck: Supple, trachea midline, no enlargement of anterior or posterior cervical nodes, no thyroid masses or goiter palpable. Chest wall: Even rise and fall of the chest wall, no bruising or swelling noted, tenderness to palpation to the chest wall-midsternal and to the bilateral lateral chest wall below the breast Cardio: Regular rate and rhythm, s1 and s2 normal, no murmur appreciated. Resp: Clear to auscultation bilaterally, no rhonchi, rales, wheezing or rubs Course Course Emergency Course: Portions of this record may have been created with voice recognition software. Level of Care: Express Care Visit Vital Signs Vital signs: Vi
== END 2024-01-03 18:00 | disposition home or self-care (01) ==
PROVIDERS: Emergency Provider Nurse Practitioner Family; PCP Nurse Practitioner Family
DX: O99.891 Other specified diseases and conditions complicating pregnancy (principal); M94.0 Chondrocostal junction syndrome [Tietze]; O99.512 Diseases of the respiratory system complicating pregnancy, second trimester; Z3A.23 23 weeks gestation of pregnancy; J06.9 Acute upper respiratory infection, unspecified; Z20.822 Contact with and (suspected) exposure to COVID-19; Z79.82 Long term (current) use of aspirin
CPT/HCPCS: 87081; 87426; 87804; 87880; 93005; 99213; G0463

== ENCOUNTER 2024-01-08 21:57 | Observation (INO) | payer OTHER, SELFPAY ==
[2024-01-08] VITALS (13 sets, daily range): BP systolic 108–114; BP diastolic 64–68; PULSE 72–88; O2SAT 98–100; BMI 22.5
--- NOTE | 2024-01-08 21:57 | PC.NURSE ---
Pt arrives to unit with abdominal pain.
--- NOTE | 2024-01-08 22:24 | OBADM ---
This patient, Tyree Gilbert, admitted to the OB room OB Post 117 for observation. Patient/family oriented to hospital policies and general routines including ID bracelet, bed and alarms, visiting hours, pain management, procedures, bathroom and other care routines, personal items, smoking policy, room service/diet, and visiting hours. Patient/Family are encouraged to report perceived risks to care and to ask questions if they do not understand what they are told or what they should do.
--- NOTE | 2024-01-08 23:14 | PC.NURSE ---
Called Dr. Desouza, update on pt, abdominal pain around belly button, tracing, and vital signs. Orders received to discharge pt with instructions to take Tylenol and drink fluids, to keep next scheduled appointment, and when to return to the unit.
--- NOTE | 2024-01-08 23:42 | PC.NURSE ---
Pt discharged with instructions to take Tylenol, drink fluids, call the office tomorrow with questions on work activity restrictions, keep next scheduled appointment and when to return to the unit.
--- NOTE | 2024-01-10 08:57 | PM.OBTRLD ---
OB - Triage/Final Diagnosis Visit Information Reason for evaluation: other (Periumbilical pain) Comments/Additional reasons for admission: I have assessed the risk for this patient, Tyree Gilbert, and determined that she would benefit from observation care.
== END 2024-01-08 23:42 | disposition home or self-care (01) ==
PROVIDERS: Admitting Provider Obstetrics & Gynecology; PCP Nurse Practitioner Family; Visit Provider Obstetrics & Gynecology
DX: O26.892 Other specified pregnancy related conditions, second trimester (principal); R10.33 Periumbilical pain; Z3A.23 23 weeks gestation of pregnancy
CPT/HCPCS: 59025; G0378; G0379

== ENCOUNTER 2024-01-09 12:47 | Observation (INO) | payer OTHER, SELFPAY ==
--- NOTE | ~2024-01-09 | US_ITS ---
EXAMINATION: US abdomen complete DATE: 01/09/2024 15:04 INDICATION: Abdominal pain. TECHNIQUE: Multiple grayscale and Doppler ultrasound images of the abdomen were obtained. COMPARISON: Chest CT 10/04/2023 FINDINGS: The inferior vena cava is normal. Abdominal aorta is normal in caliber. The visualized port ions of the head, body, and tail of the pancreas are normal. The liver is normal without focal lesion . There is normal flow in main portal vein. The gallbladder is normal in size. No gallstones or gallb ladder wall thickening. There is no sonographic Ribeiro's sign. The common duct is normal and measures 2 mm. The kidneys are normal in size. The spleen is normal in size. IMPRESSION: 1. Normal complete abdomen ultrasound. Reviewed, dictated and finalized at location A.
--- NOTE | 2024-01-09 12:47 | PC.NURSE ---
This patient, Tyree Gilbert, admitted to the OB room OB Post 113 for observation. PT states she was here last night for abdominal pain and was discharged, the pain was getting worse and called office, was sent to L and D for evaluation. Patient/family oriented to hospital policies and general routines including ID bracelet, bed and alarms, visiting hours, pain management, procedures, bathroom and other care routines, personal items, smoking policy, room service/diet, and visiting hours. Patient/Family are encouraged to report perceived risks to care and to ask questions if they do not understand what they are told or what they should do.
[2024-01-09 13:00] VITALS: BMI 22.4
[2024-01-09 13:16] VITALS: TEMP 36.2
[2024-01-09 13:31] VITALS: BP 106/60; PULSE 86
[2024-01-09 13:49] LABS: Basophils Percent Auto 0.2 % (0.2-1.2); Eosinophils Absolute Auto 0.1 K/mm3 (0-0.3); Eosinophils Percent Auto 1.4 % (0-4.4); Hematocrit 33.6 % (37.0-47.0); Hemoglobin 11.4 g/dL (12.0-15.0); Immature Granulocyte Absolute 0.04 K/mm3 (0.00-0.031); Immature Granulocyte Percent A 0.5 % (0-0.5); Lymphocytes Absolute Auto 2.14 K/mm3 (0.9-3.2); Lymphocytes Percent Auto 26.6 % (18.3-44.2); Mean Corpuscular HGB Conc 33.9 g/dl (32-36); Mean Corpuscular Hemoglobin 30.4 pg (26-34); Mean Corpuscular Volume 89.6 fl (80-100); Mean Platelet Volume 9.7 fl (7.4-10.4); Monocytes Absolute Auto 0.6 K/mm3 (0.1-0.6); Monocytes Percent Auto 7.6 % (2.6-8.5); Neutrophils Absolute Auto 5.1 K/mm3 (1.3-6.7); Neutrophils Percent Auto 63.7 % (45.5-73.1); Platelet Count Result 204 k/mm3 (150-375); Red Blood Count 3.75 M/mm3 (4.2-5.4); Red Cell Distribution Width 12.8 % (11.5-14.5); White Blood Count 8.1 K/mm3 (4.5-10.0)
[2024-01-09 13:52] LABS: Appearance Urine Clear (Clear); Bilirubin Urine Negative (Negative); Blood Urine Negative (Negative); Color Urine Yellow (Yellow); Glucose Urine UA Negative (Negative); Ketones Urine Negative (Negative); Leukocyte Esterase Ur Negative LEU/UL (Negative); Nitrate Urine Negative (Negative); Protein Urine Negative (Negative); Specific Grav Ur 1.007 (1.001-1.035); Urobilinogen Urine 0.2 mg/dL (<2.0); pH Urine 7.5 (5.0-9.0)
[2024-01-09 13:57] LABS: Add Urine Microscopic? NO
[2024-01-09 14:05] LABS: Alanine Aminotransferase 11 U/L (6-35); Albumin Level 3.5 g/dL (3.5-5.1); Alkaline Phosphatase 51 U/L (38-126); Anion Gap 6 mmol/L (4-12); Aspartate Amino Transferase 18 U/L (14-36); Bilirubin,Total 0.6 mg/dL (0.2-1.3); Blood Urea Nitrogen 8 mg/dL (7-17); Calcium 8.5 mg/dL (8.4-10.2); Carbon Dioxide 23 mmol/L (22-30); Chloride 106 mmol/L (98-107); Estimated Glomerular Filt Rate > 60; Glucose 74 mg/dL (65-110); Potassium 3.5 mmol/L (3.4-5.0); Sodium 135 mmol/L (137-145); Uric Acid 3.7 mg/dL (2.5-7.5)
--- NOTE | 2024-01-09 15:21 | PM.OBTRLD ---
OB - Triage/Final Diagnosis Visit Information Date of evaluation: 01/09/24 Reason for evaluation: other (abdominal pain) Comments/Additional reasons for admission: I have assessed the risk for this patient, Tyree Marcano Vladimir, and determined that she would benefit from observation care. Evaluation Laboratory results: Laboratory Tests 01/09/24 13:33 WBC 8.1 RBC 3.75 L Hgb 11.4 L Hct 33.6 L MCV 89.6 MCH 30.4 MCHC 33.9 RDW 12.8 Plt Count 204 MPV 9.7 Immature Gran % (Auto) 0.5 Neut % (Auto) 63.7 Lymph % (Auto) 26.6 [place] % (Auto) 7.6 Eos % (Auto) 1.4 Baso % (Auto) 0.2 Lymph # (Auto) 2.14 [place] # (Auto) 0.6 Eos # (Auto) 0.1 Baso # (Auto) 0.0 Abs Immat Gran (auto) 0.04 H Absolute Neuts (auto) 5.1 Absolute Nucleated RBC 0.000 Nucleated RBC % 0.0 Sodium 135 L Potassium 3.5 Chloride 106 Carbon Dioxide 23 Anion Gap 6 BUN 8 Creatinine 0.50 L Estim Creat Clear Calc Not Reportable Estimated GFR > 60 Glucose 74 Uric Acid 3.7 Calcium 8.5 Total Bilirubin 0.6 AST 18 ALT 11 Alkaline Phosphatase 51 Total Protein 6.0 L Albumin 3.5 Urine Color Yellow Urine Appearance Clear Urine pH 7.5 Ur Specific [place] 1.007 Urine Protein Negative Urine Glucose (UA) Negative Urine Ketones Negative Ur Blood (Man) Negative Urine Nitrate Negative Urine Bilirubin Negative Urine Urobilinogen 0.2 Ur Leukocyte Esterase Negative Vital signs: Vital Signs - 24 hr 01/09/24 13:31 Pulse Rate 86 Blood Pressure 106/60
--- NOTE | 2024-01-09 15:21 | PC.NURSE ---
called Dr. Conrad, reported ultrasound result. discharge order received.
== END 2024-01-09 15:39 | disposition home or self-care (01) ==
PROVIDERS: Admitting Provider Student in an Organized Health Care Education/Training Program; PCP Nurse Practitioner Family; Visit Provider Student in an Organized Health Care Education/Training Program
DX: O26.899 Other specified pregnancy related conditions, unspecified trimester (principal); R10.9 Unspecified abdominal pain
CPT/HCPCS: 36415; 76700; 80053; 81003; 84550; 85025; 87086; G0378; G0379

== ENCOUNTER 2024-02-05 12:03 | Outpatient (CLI) | payer OTHER, SELFPAY ==
[2024-02-05 13:34] LABS: Basophils Percent Auto 0.2 % (0.2-1.2); Eosinophils Absolute Auto 0.1 K/mm3 (0-0.3); Eosinophils Percent Auto 1.5 % (0-4.4); Hematocrit 35.7 % (37.0-47.0); Immature Granulocyte Absolute 0.02 K/mm3 (0.00-0.031); Immature Granulocyte Percent A 0.2 % (0-0.5); Lymphocytes Absolute Auto 1.73 K/mm3 (0.9-3.2); Lymphocytes Percent Auto 21.2 % (18.3-44.2); Mean Corpuscular HGB Conc 33.6 g/dl (32-36); Mean Corpuscular Hemoglobin 30.1 pg (26-34); Mean Corpuscular Volume 89.5 fl (80-100); Mean Platelet Volume 10.1 fl (7.4-10.4); Monocytes Absolute Auto 0.5 K/mm3 (0.1-0.6); Monocytes Percent Auto 5.5 % (2.6-8.5); Neutrophils Absolute Auto 5.8 K/mm3 (1.3-6.7); Neutrophils Percent Auto 71.4 % (45.5-73.1); Platelet Count Result 206 k/mm3 (150-375); Red Blood Count 3.99 M/mm3 (4.2-5.4); Red Cell Distribution Width 12.3 % (11.5-14.5); White Blood Count 8.2 K/mm3 (4.5-10.0)
[2024-02-05 13:45] LABS: Glucose 1 Hour PP 50gm Dose 95 mg/dL
[2024-02-05 14:26] LABS: HIV 1/2 Ab P24 Ag Result Negative (Negative)
[2024-02-06 14:53] LABS: Rapid Plasma Reagin Non-Reactive (NonReactive)
== END 2024-02-05 12:04 | disposition home or self-care (01) ==
LOC: ANHLAB 12:04
PROVIDERS: PCP Nurse Practitioner Family; Visit Provider Obstetrics & Gynecology
DX: Z34.90 Encounter for supervision of normal pregnancy, unspecified, unspecified trimester (principal)
CPT/HCPCS: 36415; 82947; 85025; 86592; 86703; G0432

== ENCOUNTER 2024-02-17 19:21 | Outpatient (CLI) | payer OTHER, SELFPAY ==
[2024-02-17] VITALS (7 sets, daily range): BP systolic 109–110; BP diastolic 66–71; PULSE 76–99; O2SAT 99–100
--- NOTE | 2024-02-17 20:32 | PC.NURSE ---
Called Dr. Anderson, update on pt, decreased movement, tracing, pt marking movement, and blood pressure. Orders received to discharge pt with instructions to keep next scheduled appointment and when to return to the unit.
--- NOTE | 2024-02-18 07:32 | PM.OBTRLD ---
OB - Triage/Final Diagnosis Visit Information Reason for evaluation: other (back pain) Comments/Additional reasons for admission: I have assessed the risk for this patient, Tyree Gilbert, and determined that she would benefit from observation care. Evaluation Vital signs: Vital Signs - 24 hr 02/17/24 19:37 02/17/24 20:12 02/17/24 20:17 Pulse Rate 98 85 Blood Pressure 110/71 109/66 Blood Pressure [Left Arm] Pulse Oximetry 99 100 02/17/24 20:22 02/17/24 20:27 02/17/24 20:32 Pulse Rate Blood Pressure Blood Pressure [Left Arm] Pulse Oximetry 100 100 100 02/17/24 20:33 Pulse Rate 86 Blood Pressure Blood Pressure [Left Arm] 110/71 Pulse Oximetry
== END 2024-02-17 20:30 | disposition home or self-care (01) ==
LOC: ANHOBOP 19:26 → ANHLDR 02-22 07:00
PROVIDERS: PCP Nurse Practitioner Family; Visit Provider Obstetrics & Gynecology
DX: O36.8910 Maternal care for other specified fetal problems, first trimester, not applicable or unspecified (principal); Z3A.00 Weeks of gestation of pregnancy not specified
CPT/HCPCS: 59025; 99199

== ENCOUNTER 2024-03-15 13:00 | Outpatient (CLI) | payer OTHER, SELFPAY ==
--- NOTE | ~2024-03-15 | US_ITS ---
EXAMINATION: US OB BPP wo non-stress DATE: 03/15/2024 13:54 INDICATION: Decreased movement. Third trimester. TECHNIQUE: Real-time pelvic ultrasound was performed. COMPARISON: Ultrasound 12/18/2023 FINDINGS: There is a single living fetus in vertex presentation. The placenta is anterior. heart rate is 145 beats per minute (bpm). Biophysical profile performed by the technologist: breathing (30 sec sustained breathing in 30 minutes): 2 out of 2 movement (3 gross body movements in 30 minutes): 2 out of 2 tone (one episode of cgzpdzt-[id number]-ewhlfgm limb movement): 2 out of 2 Amniotic fluid pocket (2 cm): 2 out of 2 Total score: 8 out of 8 IMPRESSION: 1. Single living fetus in vertex presentation. 2. Biophysical profile 8 out of 8. Reviewed, dictated and finalized at location A.
[2024-03-15 13:54] LABS: INR 0.9
[2024-03-15 13:55] LABS: Partial Thromboplastin Time 26.6 Seconds (22.3-36.8)
[2024-03-15 13:56] LABS: Alanine Aminotransferase 11 U/L (6-35); Albumin Level 3.2 g/dL (3.5-5.1); Alkaline Phosphatase 123 U/L (38-126); Anion Gap 5 mmol/L (4-12); Aspartate Amino Transferase 23 U/L (14-36); Bilirubin,Total 0.5 mg/dL (0.2-1.3); Blood Urea Nitrogen 5 mg/dL (7-17); Calcium 9.3 mg/dL (8.4-10.2); Carbon Dioxide 23 mmol/L (22-30); Chloride 107 mmol/L (98-107); Estimated Glomerular Filt Rate > 60; Glucose 96 mg/dL (65-110); Sodium 135 mmol/L (137-145)
[2024-03-15 14:11] VITALS: BP 109/71; PULSE 86
--- NOTE | 2024-03-15 14:16 | PC.NURSE ---
Patient presents to L&D unit with decreased movement and itchiness on her hands, feet, and stomach she has had for a week and forgot to mention it at her OB appointment yesterday 03/14/24. Notified Dr. Bethea and received orders for an NST, BPP, CMP, bile acids, and coags. NST was reactive and patient feels good movement. BPP 8/8. Coags and CMP were normal. Notified Dr. Bethea of results. Verbal orders received to discharge patient to home. Patient agrees with plan of care and has no questions at this time.
[2024-03-19 17:58] LABS: Chenodeoxycholic Acid 0.8 umol/L (< OR = 3.9); Cholic Acid 0.7 umol/L (< OR = 2.8); Deoxycholic Acid <0.5 umol/L (< OR = 2.3); Total Bile Acids <1.5 umol/L (< OR = 8.3)
== END 2024-03-15 14:15 | disposition home or self-care (01) ==
LOC: ANHOBOP 13:18 → ANHLDR 13:21
PROVIDERS: Obstetrics & Gynecology; PCP Nurse Practitioner Family; Visit Provider Obstetrics & Gynecology
DX: O36.8190 Decreased fetal movements, unspecified trimester, not applicable or unspecified (principal); Z3A.00 Weeks of gestation of pregnancy not specified
CPT/HCPCS: 36415; 59025; 76819; 80053; 82542; 85610; 85730; 99199

== ENCOUNTER 2024-03-16 11:22 | Emergency (ER) | payer OTHER, SELFPAY ==
[2024-03-16 11:28] VITALS: BP 109/73; PULSE 105; RESP 18; TEMP 36.7; O2SAT 99
--- NOTE | 2024-03-16 11:51 | ED.SKABFB ---
HPI - Skin/Abscess/Foreign Bdy General Chief complaint: Skin/Abscess/Foreign Body Stated complaint: rash Time Seen by Provider: 03/16/24 11:51 Source: patient Mode of arrival: ambulatory Limitations: no limitations History of Present Illness HPI narrative: [age] year old female (33 weeks gestation) presented for complaint of rash to abdomen and feet over the past few days. Endorses exposure to someone with similar rash. Pt also reports sore throat which she has attributed to indigestion. Denies vomiting, diarrhea, or fever. Denies lip, tongue, or throat swelling, shortness of breath or wheezing. Denies changes to soap, detergent, lotion, or any other exposures. No one else in the house or any contacts with similar symptoms. Related Data Home Medications Medication Instructions Recorded Confirmed aspirin 81 mg tablet 162 mg PO DAILY 01/03/24 03/16/24 Allergies Allergy/AdvReac Type Severity Reaction Status Date / Time No Known Allergies Allergy Verified 03/16/24 11:50 Review of Systems Review of Systems: CONSTITUTIONAL: Denies body aches, fever, chills, or sweats. EYES: Denies visual changes, redness, or discharge. ENT: Reports sore throat Denies rhinorrhea, congestion CARDIOVASCULAR: Denies chest pain, palpitations, or edema. RESPIRATORY: Denies cough or dyspnea. GASTROINTESTINAL: Denies abdominal pain, nausea, vomiting, or diarrhea. SKIN: Reports rash MUSCULOSKELETAL: Denies back pain, joint pain, or myalgia. NEUROLOGIC: Denies headache, numbness, tingling, or weakness. [facility] Past Medical History Medical History IUD surveillance removed 07/02/2023 Suppression of menses Social History Social History Years smoked: 2 Smoking status: Former smoker Alcohol intake: former Substance use: never Do You Feel Safe in your Home?: Yes Lack of Transportation: No Lack of Food: Never True Current Housing: I Have Housing Concerned About Future Housing: No Difficulty Paying Gas/Electric Bills: No Difficulty Paying for Meds: No Currently Unemployed: No Education: High School Diploma/GED Difficulty w/ Childcare or Family Care: No Living arrangements: with family Occupation/Education: occupation 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 Please see nursing chart for further information. There is no relevant family history pertinent to the presenting complaint Exam Narrative: GENERAL: Well-appearing EYES: conjunctivae clear, and EOMI. ENT: Mucous membranes moist. Oropharynx without edema, erythema or lesions. TMs normal bilaterally. NECK: Supple. No lymphadenopathy CHEST: Clear to auscultation. Regular rate and rhythm. ABD: gravid. SKIN: Warm, dry. scattered erythematous flat macular lesions to abdomen, few scattered papules to bilateral feet; nontender, no drainage or fluctuance; sparing face and arms NEURO: Alert and oriented x3. Course Course Emergency Course: Patient is aware of diagnosis, understands and agrees to treatment plan. Anticipatory guidance given. Patient agrees to follow-up as directed and is aware of reasons to seek care at the emergency department. Portions of this record may have been created with voice recognition software Level of Care: Express Care Visit Vital Signs Vital signs: Vital Signs Temperature 98.0 F 03/16/24 11:28 Pulse Rate 105 H 03/16/24 11:28 Respiratory Rate 18 03/16/24 11:28 Blood Pressure 109/73 03/16/24 11:28 Pulse Oximetry 99 03/16/24 11:28 Oxygen Delivery Room Air 03/16/24 11:28 Temperature 98.0 F 03/16/24 11:28 Pulse Rate 105 H 03/16/24 11
[2024-03-16 12:49] LABS: EDSTREPNEGPOS1 Presumptive Negative
== END 2024-03-16 12:20 | disposition home or self-care (01) ==
PROVIDERS: Emergency Provider Nurse Practitioner Family; PCP Nurse Practitioner Family
DX: O99.713 Diseases of the skin and subcutaneous tissue complicating pregnancy, third trimester (principal); Z3A.33 33 weeks gestation of pregnancy; L25.9 Unspecified contact dermatitis, unspecified cause; Z87.891 Personal history of nicotine dependence
CPT/HCPCS: 87081; 87880; 99213; G0463

== ENCOUNTER 2024-03-18 16:37 | Outpatient (CLI) | payer OTHER, SELFPAY ==
[2024-03-18 17:01] VITALS: BP 111/75; PULSE 91
[2024-03-18 17:15] VITALS: BP 114/74; PULSE 83
[2024-03-18 17:17] LABS: Basophils Percent Auto 0.1 % (0.2-1.2); Eosinophils Absolute Auto 0.1 K/mm3 (0-0.3); Eosinophils Percent Auto 0.7 % (0-4.4); Hematocrit 34.2 % (37.0-47.0); Hemoglobin 11.4 g/dL (12.0-15.0); Immature Granulocyte Absolute 0.02 K/mm3 (0.00-0.031); Immature Granulocyte Percent A 0.3 % (0-0.5); Lymphocytes Absolute Auto 1.45 K/mm3 (0.9-3.2); Lymphocytes Percent Auto 19.5 % (18.3-44.2); Mean Corpuscular HGB Conc 33.3 g/dl (32-36); Mean Corpuscular Hemoglobin 28.9 pg (26-34); Mean Corpuscular Volume 86.6 fl (80-100); Mean Platelet Volume 10.4 fl (7.4-10.4); Monocytes Absolute Auto 0.4 K/mm3 (0.1-0.6); Monocytes Percent Auto 5.8 % (2.6-8.5); Neutrophils Absolute Auto 5.5 K/mm3 (1.3-6.7); Neutrophils Percent Auto 73.6 % (45.5-73.1); Platelet Count Result 235 k/mm3 (150-375); Red Blood Count 3.95 M/mm3 (4.2-5.4); Red Cell Distribution Width 11.9 % (11.5-14.5); White Blood Count 7.4 K/mm3 (4.5-10.0)
[2024-03-18] MEDS: ACETAMINOPHEN 500 MG TABLET 1000 MG PO (17:18)
[2024-03-18 17:20] VITALS: BP 111/75; PULSE 91; BMI 25.5
[2024-03-18 17:24] LABS: Appearance Urine Clear (Clear); Bacteria Urine Rare /hpf; Bilirubin Urine Negative (Negative); Blood Urine Negative (Negative); Color Urine Yellow (Yellow); Creatinine Urine 75.5 mg/dL; Glucose Urine UA Negative (Negative); Ketones Urine Negative (Negative); Leukocyte Esterase Ur Trace LEU/UL (Negative); Nitrate Urine Negative (Negative); Non Pathogenic Casts 0-2; Protein Urine Negative (Negative); RBC Urine 0-2 /hpf (0-2); Specific Grav Ur 1.013 (1.001-1.035); Squamous Epithelial Cell Urine Occasional /hpf (Few); Total Protein Urine Random 7 mg/dL; Ur Ttl Prot Creatinine Ratio 0.09 mg/mg (0-0.20); WBC Urine 0-5 /hpf (0-3)
[2024-03-18 17:26] LABS: Add Urine Microscopic? YES
[2024-03-18 17:28] LABS: Alanine Aminotransferase 9 U/L (6-35); Albumin Level 3.4 g/dL (3.5-5.1); Alkaline Phosphatase 150 U/L (38-126); Anion Gap 6 mmol/L (4-12); Aspartate Amino Transferase 22 U/L (14-36); Bilirubin,Total 0.5 mg/dL (0.2-1.3); Blood Urea Nitrogen 7 mg/dL (7-17); Calcium 8.8 mg/dL (8.4-10.2); Carbon Dioxide 25 mmol/L (22-30); Chloride 103 mmol/L (98-107); Estimated CRCL calculation 94 ml/min; Estimated Glomerular Filt Rate > 60; Glucose 78 mg/dL (65-110); Potassium 4.2 mmol/L (3.4-5.0); Sodium 134 mmol/L (137-145); Uric Acid 5.1 mg/dL (2.5-7.5)
[2024-03-18 17:30] VITALS: BP 110/74; PULSE 89
[2024-03-18 17:45] VITALS: BP 112/73; PULSE 80
[2024-03-18 18:00] VITALS: BP 103/63; PULSE 89
== END 2024-03-18 18:22 | disposition home or self-care (01) ==
LOC: ANHOBOP 16:40 → ANHOBPP 16:40
PROVIDERS: PCP Nurse Practitioner Family; Visit Provider Obstetrics & Gynecology
DX: O13.9 Gestational [pregnancy-induced] hypertension without significant proteinuria, unspecified trimester (principal); Z3A.00 Weeks of gestation of pregnancy not specified
CPT/HCPCS: 36415; 59025; 80053; 81001; 82570; 84156; 84550; 85025; 99199; A9270

== ENCOUNTER 2024-03-27 19:04 | Emergency (ER) | payer OTHER, SELFPAY ==
--- NOTE | 2024-03-27 19:08 | ED.GENADULT ---
HPI - General Adult General Chief complaint: Upper Respiratory Infection Stated complaint: Upper Respiratory Problems Time Seen by Provider: 03/27/24 19:10 Source: patient, RN notes reviewed and old records reviewed Mode of arrival: ambulatory Limitations: no limitations History of Present Illness HPI narrative: Patient who is 35 weeks gestation presents with complaints of cough that began yesterday. She denies any fever, chills, sweats. She reports the car if it is worse when lying down. States that she coughs so hard that she feels it is hard to catch her breath. She has not taken any medications for her symptoms. She has not called her OBGYN. She is not in any distress at this time. She reports that she has been using an albuterol inhaler and this is giving her some relief Related Data Home Medications Medication Instructions Recorded Confirmed aspirin 81 mg tablet 162 mg PO DAILY 01/03/24 03/27/24 Allergies Allergy/AdvReac Type Severity Reaction Status Date / Time No Known Allergies Allergy Verified 03/27/24 19:16 Review of Systems Review of Systems: All systems reviewed & are unremarkable except as noted in HPI and below Constitutional: Constitutional: Reports no additional constitutional complaints ENT: Reports system reviewed and no additional complaints, except as documented Cardiovascular: Cardiovascular: Reports no additional cardiovascular complaints Respiratory: Respiratory: Reports as per HPI, Reports no additional respiratory complaints and Reports cough Gastrointestinal: Gastrointestinal: Reports no additional gastrointestinal complaints [facility] Past Medical History Medical History IUD surveillance removed 07/02/2023 Suppression of menses Social History Social History Years smoked: 2 Smoking status: Former smoker Alcohol intake: former Substance use: never Do You Feel Safe in your Home?: Yes Lack of Transportation: No Lack of Food: Never True Current Housing: I Have Housing Concerned About Future Housing: No Difficulty Paying Gas/Electric Bills: No Difficulty Paying for Meds: No Currently Unemployed: No Education: High School Diploma/GED Difficulty w/ Childcare or Family Care: No Living arrangements: with family 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 There is no relevant family history pertinent to the patient complaint. Exam Const: General: cooperative, no acute distress, alert and awake Orientation/consciousness: oriented to person, oriented to place and oriented to time HENMT: Head: normal to inspection Resp: Effort & Inspection: normal respiratory effort and able to speak in complete sentences Auscultation: clear to auscultation bilaterally, no crackles, no rales, no rhonchi and no wheezes Cardio: Palpation: normal PMI Rate: regular rate Rhythm: regular rhythm Heart sounds: S1 normal heart sound present and S2 normal heart sound present Neuro: General: oriented to person, oriented to place and oriented to time Cranial nerves: Yes CN's II-XII intact bilaterally Psych: Appearance: grossly normal Thought process: Normal thought process present Insight: Good insight present (Psych) Judgement: Good judgement present (Psych) Course Course Level of Care: Express Care Visit Reevaluation(s) Reevaluation #1: patient became diaphoretic and dizzy at time of discharge. Transferred to [facility] via private car. Report given to Xenia Time: 19:47 Vital Signs Vital signs: Vital Signs Temperature 97.9 F 03/27/24 19:10 Pulse Rate 91 03/27/24 19:10 Respiratory Rate 1
[2024-03-27 19:10] VITALS: BP 113/71; PULSE 91; RESP 18; TEMP 36.6; O2SAT 99
--- NOTE | 2024-03-27 19:39 | PC.NURSE ---
COMES OUT TO RN STATION REPORTING PT FEELS IF SHE IS GOING TO PASS OUT. PT IS FOUND TO BE DIAPHORETIC, NAUSEATED, REPORTS SHE IS DIZZY, AND HER EARS ARE RINGING. PT REPORTS HX OF SAME AND HX OF POSTURAL HYPOTENSION. PT STATES SHE HADN'T MOVED, WAS SITTING WHEN EPISODE BEGAN. NO LOC OR SYNCOPE NOTED. MANUAL BP NOTED TO BE 98/60 HR 110.
--- NOTE | 2024-03-27 19:44 | PC.NURSE ---
PT REPORTS SHE IS FEELING BETTER, HOWEVER REPORTS HER BP HAS NEVER DROPPED LIKE THAT BEFORE, SHE IS USUALLY 104/70 AND STATES SHE NORMALLY HAS TO STAND PRIOR TO NEAR SYNCOPE EPISODES. PT IS REQUESTING TRANSFER TO [place] AT THIS TIME. ANDRESSA IS DR BEARDEN.
[2024-03-27 19:48] VITALS: BP 100/62; PULSE 100; RESP 20; TEMP 36.4; O2SAT 100
--- NOTE | 2024-03-27 19:48 | PC.NURSE ---
PT DECLINES EMS TRANSPORT. DENIES ANY ABD PAIN, VAGINAL BLEEDING OR DC. REPORTS BABY IS ACTIVE.
--- NOTE | 2024-03-27 19:57 | PC.NURSE ---
UPON DC, PT REPORTS SHE IS FEELING BETTER, NO LONGER DIAPHORETIC.
== END 2024-03-27 19:48 | disposition short-term general hospital (02) ==
PROVIDERS: Emergency Provider Nurse Practitioner Family; PCP Nurse Practitioner Family
DX: J06.9 Acute upper respiratory infection, unspecified (principal); Z20.822 Contact with and (suspected) exposure to COVID-19
CPT/HCPCS: 87426; 99213; G0463

== ENCOUNTER 2024-03-27 20:08 | Emergency (ER) | payer OTHER, SELFPAY ==
--- NOTE | ~2024-03-27 | CT_ITS ---
CTA chest PE protocol Ordering provider: Derek Grover MD History: 24 years Female with . chest pain, hx of clotting disorder, . Comparison: None. Technique: CT angiogram chest was performed following timed intravenous injection of contrast. Thin s lice axial images and reformatted coronal images were obtained. Three dimensional reformatted images of the chest were also obtained using a [employer] workstation. . Automated exposure control and iterati ve reconstruction technique were employed. The dose-length product was 226.22 mGy-cm. Findings: PULMONARY ARTERIES: No pulmonary embolus. VISUALIZED THORACIC INLET: Normal. MEDIASTINUM: Aorta/coronary arteries: The thoracic aorta is normal. Heart/other: The heart is not enlarged. Lymph nodes: No mediastinal or hilar adenopathy. LUNGS: No pulmonary nodules or masses. No infiltrates or effusions. No pneumothorax. VISUALIZED UPPER ABDOMEN: Small sliding hiatus hernia. Overdistended stomach. Otherwise, the visualiz ed upper abdomen is normal. MUSCULOSKELETAL: Soft tissues: The superficial soft tissues are normal. Bones: Normal spine. IMPRESSION: 1. No pulmonary embolism. 2. Small sliding hiatus hernia with overdistended stomach. Reviewed, dictated and finalized at location A.
--- NOTE | ~2024-03-27 | US_ITS ---
LEFT LOWER EXTREMITY VENOUS ULTRASOUND Ordering provider: Derek Grover MD History: . pain hx of clotting disorder . Comparison: None. FINDINGS: --COMMON FEMORAL: Patent and free of thrombus. Normal compressibility, phasic flow and augmentation. --PROXIMAL SUPERFICIAL FEMORAL: Patent and free of thrombus. Normal compressibility, phasic flow and augmentation. --DISTAL SUPERFICIAL FEMORAL: Patent and free of thrombus. Normal compressibility, phasic flow and au gmentation. --POPLITEAL: Patent and free of thrombus. Normal compressibility, phasic flow and augmentation. --POSTERIOR TIBIAL: Patent and free of thrombus. Normal compressibility, phasic flow and augmentation . IMPRESSION: Negative left lower extremity venous US. No deep vein thrombosis. Reviewed, dictated and finalized at location A.
[2024-03-27 20:10] VITALS: BP 113/67; PULSE 81; RESP 18; TEMP 36.6; O2SAT 100
--- NOTE | 2024-03-27 20:14 | ECG_ITS ---
Test Date: 2024-03-27 20:20:23 Measurements Intervals [place] Rate: 95 P: 52 [place]: 124 QRS: 62 QRSD: 82 T: 27 QT: 350 QTc: 440 Interpretive Statements SINUS RHYTHM INCOMPLETE RIGHT BUNDLE BRANCH BLOCK NONSPECIFIC T-WAVE ABNORMALITY- ANT/INF LEADS BORDERLINE ECG No previous ECG available for comparison Electronically Signed On 03-27-2024 21:17:00 CDT by Darnell Murdock D.O.
[2024-03-27 20:35] LABS: Basophils Percent Auto 0.3 % (0.2-1.2); Eosinophils Absolute Auto 0.1 K/mm3 (0-0.3); Eosinophils Percent Auto 0.9 % (0-4.4); Hematocrit 35.9 % (37.0-47.0); Immature Granulocyte Absolute 0.06 K/mm3 (0.00-0.031); Immature Granulocyte Percent A 0.5 % (0-0.5); Lymphocytes Absolute Auto 2.89 K/mm3 (0.9-3.2); Lymphocytes Percent Auto 23.9 % (18.3-44.2); Mean Corpuscular HGB Conc 33.4 g/dl (32-36); Mean Corpuscular Hemoglobin 28.5 pg (26-34); Mean Corpuscular Volume 85.3 fl (80-100); Mean Platelet Volume 10.9 fl (7.4-10.4); Monocytes Absolute Auto 0.6 K/mm3 (0.1-0.6); Monocytes Percent Auto 4.9 % (2.6-8.5); Neutrophils Absolute Auto 8.4 K/mm3 (1.3-6.7); Neutrophils Percent Auto 69.5 % (45.5-73.1); Platelet Count Result 279 k/mm3 (150-375); Red Blood Count 4.21 M/mm3 (4.2-5.4); White Blood Count 12.1 K/mm3 (4.5-10.0)
[2024-03-27 20:47] LABS: Alanine Aminotransferase 11 U/L (6-35); Albumin Level 3.6 g/dL (3.5-5.1); Alkaline Phosphatase 180 U/L (38-126); Anion Gap 10 mmol/L (4-12); Aspartate Amino Transferase 24 U/L (14-36); Bilirubin,Total 0.7 mg/dL (0.2-1.3); Blood Urea Nitrogen 5 mg/dL (7-17); Carbon Dioxide 20 mmol/L (22-30); Chloride 104 mmol/L (98-107); Estimated CRCL calculation 111 ml/min; Estimated Glomerular Filt Rate > 60; Glucose 126 mg/dL (65-110); Potassium 3.7 mmol/L (3.4-5.0); Sodium 134 mmol/L (137-145)
[2024-03-27 20:52] LABS: Appearance Urine Clear (Clear); Bilirubin Urine Negative (Negative); Blood Urine Negative (Negative); Color Urine Yellow (Yellow); Glucose Urine UA Negative (Negative); Ketones Urine Negative (Negative); Leukocyte Esterase Ur Negative LEU/UL (Negative); Nitrate Urine Negative (Negative); Protein Urine Negative (Negative); Specific Grav Ur 1.011 (1.001-1.035)
[2024-03-27 20:55] LABS: Add Urine Microscopic? NO
[2024-03-27 22:45] VITALS: BP 141/89; PULSE 86; RESP 15; O2SAT 99
--- NOTE | 2024-03-27 22:51 | ED.GENADULT ---
HPI - General Adult General Chief complaint: Syncope Stated complaint: near syncope, cough Time Seen by Provider: 03/27/24 22:22 History of Present Illness HPI narrative: patient is a 22-year-old female who presents emergency department with chief complaint of near syncope. Patient reports she has history of a clotting disorder and reports that she has missed some of her doses of aspirin the patient is currently and reports that she has had upper respiratory symptoms and pain in the right lower portion of her chest. Patient reports the pain is worse with inspiration and reports that she is concerned that she may have a blood clot in her lungs. Related Data Home Medications Medication Instructions Recorded Confirmed aspirin 81 mg tablet 162 mg PO DAILY 01/03/24 03/27/24 Allergies Allergy/AdvReac Type Severity Reaction Status Date / Time No Known Allergies Allergy Verified 03/27/24 19:16 Review of Systems Review of Systems: A 10 system review of systems was completed on the patient and is negative except for what is stated in the HPI. Nursing and ancillary documentation was reviewed. 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 HEAD: Normocephalic, atraumatic. EYES: PERRLA and EOMI. ENT: Nares clear, no rhinorrhea or epistaxis. Mucous membranes moist. NECK: Supple. CHEST: Clear to auscultation. No respiratory distress. tenderness to palpation in the right upper quadrant /lower chest HEART: Regular rate and rhythm. No murmur heard. Normal peripheral pulses. ABDOMEN: Soft, nontender, nondistended, normal active bowel sounds. gravid abdomen EXTREMITIES: Normal range of motion. No edema. SKIN: Warm, dry, no rash. NEURO: No focal deficits. Alert and oriented x3. PSYCH: Normal mood and affect. Course Vital Signs Vital signs: Vital Signs Temperature 36.6 C 03/27/24 20:10 Pulse Rate 81 03/27/24 20:10 Respiratory Rate 18 03/27/24 20:10 Blood Pressure 113/67 03/27/24 20:10 Pulse Oximetry 100 03/27/24 20:10 Oxygen Delivery Room Air 03/27/24 20:10 Temperature 36.6 C 03/27/24 20:10 Pulse Rate 60 03/27/24 23:15 Respiratory Rate 18 03/27/24 20:10 Blood Pressure 113/67 03/27/24 20:10 Pulse Oximetry 100 03/27/24 20:10 Oxygen Delivery Room Air 03/27/24 20:10 Medical Decision Making [facility] Narrative Medical decision making narrative: differential diagnosis includes syncope, PE, DVT, preeclampsia laboratory studies were obtained on the patient showed white count 12.1 hemoglobin was 12.0 electrolytes were within normal limits liver enzymes showed a bilirubin 0.7 AST 24 ALT of 11 troponin was negative BNP was negative lipase was normal urinalysis was clean there was no protein CTA chest showed no evidence of pulmonary embolism ultrasound of the lower extremity showed no evidence DVT Vital Signs Vital Signs: Vital Signs Temperature 36.6 C 03/27/24 20:10 Pulse Rate 81 03/27/24 20:10 Respiratory Rat
[2024-03-27 22:57] LABS: Lactic Acid Reflex 1.5 mmol/L (0.7-2.0); Lipase 80 U/L (23-300)
[2024-03-27 22:58] LABS: INR 0.9; Prothrombin Time 13.1 Seconds (11.1-14.7)
[2024-03-27 22:59] LABS: Partial Thromboplastin Time 25.1 Seconds (22.3-36.8)
--- NOTE | 2024-03-27 23:05 | PC.NURSE ---
Pt to CT at this time.
[2024-03-27 23:07] LABS: NT Pro B Type Natriuretic Pept 24 pg/mL (19.9-100)
[2024-03-27 23:10] LABS: Troponin I < 0.012 ng/mL (0.000-0.034)
[2024-03-27 23:15] VITALS: PULSE 60
[2024-03-28 00:34] VITALS: BP 143/85; PULSE 78; RESP 15; O2SAT 98
== END 2024-03-28 00:45 | disposition home or self-care (01) ==
PROVIDERS: Emergency Provider Emergency Medicine; PCP Nurse Practitioner Family
DX: O26.893 Other specified pregnancy related conditions, third trimester (principal); R55 Syncope and collapse; O99.113 Other diseases of the blood and blood-forming organs and certain disorders involving the immune mechanism complicating pregnancy, third trimester; D68.61 Antiphospholipid syndrome; Z87.891 Personal history of nicotine dependence; O99.413 Diseases of the circulatory system complicating pregnancy, third trimester; I45.10 Unspecified right bundle-branch block; R94.31 Abnormal electrocardiogram [ECG] [EKG]; Z79.82 Long term (current) use of aspirin; Z79.899 Other long term (current) drug therapy; Z3A.35 35 weeks gestation of pregnancy
CPT/HCPCS: 36415; 71275; 80053; 81003; 81025; 83605; 83690; 83880; 84484; 85025; 85610; 85730; 87426; 93005; 93971; 99284; Q9967

== ENCOUNTER 2024-04-01 16:25 | Observation (INO) | payer OTHER, SELFPAY ==
[2024-04-01] VITALS (9 sets, daily range): BP systolic 111–120; BP diastolic 71–77; PULSE 66–95; RESP 16; TEMP 36.7; O2SAT 100; BMI 25.8
--- NOTE | 2024-04-01 16:45 | PC.NURSE ---
Called Dr. Desouza's office with pt arrival. to call me back.
--- NOTE | 2024-04-01 17:00 | OBADM ---
This patient, Tyree Gilbert, admitted to the OB room OB Post 113 for observation. Patient/family oriented to hospital policies and general routines including ID bracelet, bed and alarms, visiting hours, pain management, procedures, bathroom and other care routines, personal items, smoking policy, room service/diet, and visiting hours. Patient/Family are encouraged to report perceived risks to care and to ask questions if they do not understand what they are told or what they should do.
--- NOTE | 2024-04-01 17:22 | PC.NURSE ---
Called office again. Dr. Desouza informed of pt's nausea with vomiting at home today, discussed contractions, and ROM plus was negative. Orders received for IV fluids and IV Zofran. doesn't want pt to have a SVE. Orders for discharge given after IV fluids have infused.
[2024-04-01 17:37] LABS: Add Urine Microscopic? YES; Appearance Urine Clear (Clear); Bacteria Urine Rare /hpf; Bilirubin Urine Negative (Negative); Blood Urine Negative (Negative); Color Urine Yellow (Yellow); Glucose Urine UA Negative (Negative); Ketones Urine Trace mg/dL (Negative); Leukocyte Esterase Ur 1+ LEU/UL (Negative); Need Manual Microscopic Reviewed; Nitrate Urine Negative (Negative); Non Pathogenic Casts 0-2; Protein Urine Trace mg/dL (Negative); RBC Urine 0-2 /hpf (0-2); Specific Grav Ur 1.019 (1.001-1.035); Squamous Epithelial Cell Urine Few /hpf (Few); WBC Urine 0-5 /hpf (0-3); pH Urine 6.5 (5.0-9.0)
[2024-04-01] MEDS: DEXTROSE 5%/LACTATED RINGERS 1,000 ML 999 ML IV CONT (17:50)
[2024-04-01] MEDS: ONDANSETRON INJ 4 MG/2 ML VIAL IV PUSH (17:50)
--- NOTE | 2024-04-01 19:11 | PC.NURSE ---
Pt discharged with instructions to keep next scheduled appointment and when to return to the unit, pt verbalizes understanding.
--- NOTE | 2024-04-02 09:06 | PM.OBTRLD ---
OB - Triage/Final Diagnosis Visit Information Reason for evaluation: threatened labor Comments/Additional reasons for admission: I have assessed the risk for this patient, Tyree Gilbert, and determined that she would benefit from observation care. Evaluation Laboratory results: Laboratory Tests 04/01/24 04/01/24 17:02 17:12 Urine Color Yellow Urine Appearance Clear Urine pH 6.5 Ur Specific [place] 1.019 Urine Protein Trace Urine Glucose (UA) Negative Urine Ketones Trace H Ur Blood (Man) Negative Urine Nitrate Negative Urine Bilirubin Negative Urine Urobilinogen 1.0 Add Ur Microanalysis Reviewed Leukocyte Esterase Rfl 1+ H Urine RBC 0-2 Urine WBC 0-5 Ur Squamous Epith Cells Few Urine Bacteria Rare Urine Casts 0-2 Membranes Rupture Intact Membranes Rup Com Yes Vital signs: Vital Signs - 24 hr 04/01/24 16:57 04/01/24 17:00 04/01/24 17:15 Temperature 98.1 F Pulse Rate 83 95 85 Respiratory Rate 16 Blood Pressure 120/72 116/75 117/75 Pulse Oximetry 04/01/24 17:30 04/01/24 17:49 04/01/24 18:00 Temperature Pulse Rate 81 79 79 Respiratory Rate Blood Pressure 118/77 114/72 111/71 Pulse Oximetry 04/01/24 18:42 04/01/24 18:47 04/01/24 18:52 Temperature Pulse Rate Respiratory Rate Blood Pressure Pulse Oximetry 100 100 100
== END 2024-04-01 19:11 | disposition home or self-care (01) ==
PROVIDERS: Admitting Provider Obstetrics & Gynecology; PCP Nurse Practitioner Family; Visit Provider Obstetrics & Gynecology
DX: O47.03 False labor before 37 completed weeks of gestation, third trimester (principal); Z3A.35 35 weeks gestation of pregnancy
CPT/HCPCS: 81001; 84112; 96361; 96374; G0378; G0379; J2405; J7121

== ENCOUNTER 2024-04-03 12:01 | Observation (INO) | payer OTHER, SELFPAY ==
[2024-04-03 12:30] VITALS: BP 112/79; PULSE 95
[2024-04-03 13:29] VITALS: BMI 25.7
--- NOTE | 2024-04-03 13:30 | OBADM ---
This patient, Tyree Gilbert, admitted to the OB room Labor/Delivery/Recovery 105 for observation. Patient/family oriented to hospital policies and general routines including ID bracelet, bed and alarms, visiting hours, pain management, procedures, bathroom and other care routines, personal items, smoking policy, room service/diet, and visiting hours. Patient/Family are encouraged to report perceived risks to care and to ask questions if they do not understand what they are told or what they should do.
--- NOTE | 2024-04-04 10:33 | PM.OBTRLD ---
OB - Triage/Final Diagnosis Visit Information Date of evaluation: 04/03/24 Reason for evaluation: threatened labor Comments/Additional reasons for admission: I have assessed the risk for this patient, Tyree Gilbert, and determined that she would benefit from observation care. Evaluation Laboratory results: Laboratory Tests 04/03/24 13:36 Membranes Rupture Intact Membranes Rup Com Yes Vital signs: Vital Signs - 24 hr 04/03/24 12:30 Pulse Rate 95 Blood Pressure 112/79
== END 2024-04-03 13:28 | disposition home or self-care (01) ==
PROVIDERS: Admitting Provider Student in an Organized Health Care Education/Training Program; PCP Nurse Practitioner Family; Visit Provider Student in an Organized Health Care Education/Training Program
DX: O47.9 False labor, unspecified (principal); Z3A.00 Weeks of gestation of pregnancy not specified
CPT/HCPCS: 84112; G0378; G0379

== ENCOUNTER 2024-04-04 20:37 | Observation (INO) | payer OTHER, SELFPAY ==
[2024-04-04] VITALS (8 sets, daily range): BP systolic 116–126; BP diastolic 71–84; PULSE 83–101; TEMP 36.9; BMI 25.8
[2024-04-04 21:53] LABS: Appearance Urine Clear (Clear); Bacteria Urine None Seen /hpf; Bilirubin Urine Negative (Negative); Blood Urine Negative (Negative); Color Urine Yellow (Yellow); Glucose Urine UA Negative (Negative); Ketones Urine Negative (Negative); Leukocyte Esterase Ur Trace LEU/UL (Negative); Nitrate Urine Negative (Negative); Non Pathogenic Casts 0-2; Protein Urine Negative (Negative); RBC Urine 0-2 /hpf (0-2); Specific Grav Ur 1.009 (1.001-1.035); Squamous Epithelial Cell Urine None Seen /hpf (Few); Urobilinogen Urine 0.2 mg/dL (<2.0); WBC Urine 0-5 /hpf (0-3)
[2024-04-04 21:55] LABS: Add Urine Microscopic? YES
--- NOTE | 2024-04-07 09:58 | PM.OBTRLD ---
OB - Triage/Final Diagnosis Visit Information Date of evaluation: 04/04/24 Reason for evaluation: threatened labor Comments/Additional reasons for admission: I have assessed the risk for this patient, Tyree Gilbert, and determined that she would benefit from observation care. Evaluation Laboratory results: Laboratory Tests 04/04/24 21:41 Urine Color Yellow Urine Appearance Clear Urine pH 7.0 Ur Specific [place] 1.009 Urine Protein Negative Urine Glucose (UA) Negative Urine Ketones Negative Ur Blood (Man) Negative Urine Nitrate Negative Urine Bilirubin Negative Urine Urobilinogen 0.2 Leukocyte Esterase Rfl Trace H Urine RBC 0-2 Urine WBC 0-5 Ur Squamous Epith Cells None seen Urine Bacteria None seen Urine Casts 0-2
== END 2024-04-04 23:30 | disposition home or self-care (01) ==
PROVIDERS: Admitting Provider Student in an Organized Health Care Education/Training Program; PCP Nurse Practitioner Family; Visit Provider Student in an Organized Health Care Education/Training Program
DX: O47.03 False labor before 37 completed weeks of gestation, third trimester (principal); Z3A.36 36 weeks gestation of pregnancy
CPT/HCPCS: 81001; G0378; G0379

== ENCOUNTER 2024-04-08 21:05 | Observation (INO) | payer OTHER, SELFPAY ==
--- NOTE | 2024-04-08 21:05 | OBADM ---
This patient, Tyree Gilbert, admitted to the OB room Labor/Delivery/Recovery 106 for observation. Patient/family oriented to hospital policies and general routines including ID bracelet, bed and alarms, visiting hours, pain management, procedures, bathroom and other care routines, personal items, smoking policy, room service/diet, and visiting hours. Patient/Family are encouraged to report perceived risks to care and to ask questions if they do not understand what they are told or what they should do.
[2024-04-08 21:30] VITALS: BMI 25.8
[2024-04-09 00:01] LABS: OBXCEM ROM Plus Negative
--- NOTE | 2024-04-11 11:32 | PM.OBTRLD ---
OB - Triage/Final Diagnosis Visit Information Reason for evaluation: threatened labor Comments/Additional reasons for admission: I have assessed the risk for this patient, Tyree Gilbert, and determined that she would benefit from observation care. Evaluation Laboratory results: Laboratory Tests 04/08/24 21:40 Membranes Rupture Rom plus negative Membranes Rup Com Yes
== END 2024-04-09 ==
PROVIDERS: Admitting Provider Obstetrics & Gynecology; PCP Nurse Practitioner Family; Visit Provider Obstetrics & Gynecology
DX: O47.1 False labor at or after 37 completed weeks of gestation (principal); Z3A.37 37 weeks gestation of pregnancy
CPT/HCPCS: 84112; G0378; G0379

== ENCOUNTER 2024-04-11 08:08 | Inpatient (IN) | payer OTHER, SELFPAY ==
[2024-04-11] VITALS (116 sets, daily range): BP systolic 96–174; BP diastolic 62–148; PULSE 66–160; RESP 18; TEMP 36.3–37.3; O2SAT 93–100; BMI 26.6
--- NOTE | 2024-04-11 11:52 | P.PNAN_ITS ---
Anes - Eval Pre Procedure Procedure: labor epidural Date/Time: 04/11/24 11:52 Surgeon: tramaine Preop Diagnosis: pain during labor Pre Op Diagnosis: Contractions/Leaking Patient Data Age: 24 Gender: F Height: Weight: Last Vital Signs Pulse 90 04/11/24 11:45 BP 124/79 04/11/24 11:45 Allergies Allergy/AdvReac Type Severity Reaction Status Date / Time No Known Allergies Allergy Verified 04/09/24 15:12 Home Medications Medication Instructions Recorded Confirmed Type aspirin 81 mg tablet 162 mg PO DAILY 01/03/24 04/09/24 History sertraline 50 mg tablet 50 mg PO DAILY #90 tabs 02/01/24 04/09/24 Rx albuterol sulfate 90 mcg/actuation 2 puff inhalation QID PRN 03/27/24 04/09/24 Rx aerosol inhaler shortness of breath or wheezing #8.5 grams vit no.95-ferrous 1 tablet PO DAILY 04/01/24 04/09/24 History fumarate 28 mg-folic acid 800 mcg tablet () Patient hx anesthesia problems: none Family hx anesthesia problems: none Results Review: All pre-operative results and documents have been reviewed as part of the pre- operative evaluation. [facility] Past Medical History Medical History IUD surveillance removed 07/02/2023 Suppression of menses Family History Family History Other No pertinent family history Social History Social History Years smoked: 2 Smoking status: Former smoker Alcohol intake: former Substance use: never Do You Feel Safe in your Home?: Yes Lack of Transportation: No Lack of Food: Never True Current Housing: I Have Housing Concerned About Future Housing: No Difficulty Paying Gas/Electric Bills: No Difficulty Paying for Meds: No Currently Unemployed: No Education: High School Diploma/GED Difficulty w/ Childcare or Family Care: No Living arrangements: with family 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
[2024-04-11 12:08] LABS: Basophils Percent Auto 0.4 % (0.2-1.2); Eosinophils Absolute Auto 0.1 K/mm3 (0-0.3); Eosinophils Percent Auto 1.2 % (0-4.4); Hematocrit 36.7 % (37.0-47.0); Immature Granulocyte Absolute 0.07 K/mm3 (0.00-0.031); Immature Granulocyte Percent A 0.7 % (0-0.5); Lymphocytes Absolute Auto 2.58 K/mm3 (0.9-3.2); Lymphocytes Percent Auto 24.8 % (18.3-44.2); Mean Corpuscular HGB Conc 32.7 g/dl (32-36); Mean Corpuscular Hemoglobin 28.2 pg (26-34); Mean Corpuscular Volume 86.2 fl (80-100); Mean Platelet Volume 11.8 fl (7.4-10.4); Monocytes Absolute Auto 0.8 K/mm3 (0.1-0.6); Monocytes Percent Auto 7.6 % (2.6-8.5); Neutrophils Absolute Auto 6.8 K/mm3 (1.3-6.7); Neutrophils Percent Auto 65.3 % (45.5-73.1); Platelet Count Result 265 k/mm3 (150-375); Red Blood Count 4.26 M/mm3 (4.2-5.4); Red Cell Distribution Width 12.9 % (11.5-14.5); White Blood Count 10.4 K/mm3 (4.5-10.0)
[2024-04-11 12:56] LABS: HIV 1/2 Ab P24 Ag Result Negative (Negative)
--- NOTE | 2024-04-11 13:12 | LDADM ---
This patient, Tyree Gilbert, was admitted to Labor/Delivery/Recovery 104 on 04/11/24 at 08:08. Plans for labor, pain management and were discussed with patient. Patient/family oriented to hospital policies and general routines including ID bracelet, bed and alarms, visiting hours, pain management, procedures, bathroom and other care routines, personal items, smoking policy, room service/diet and guest tray routines, security routines, and visiting hours. Patient/Family are encouraged to report perceived risks to care and to ask questions if they do not understand what they are told or what they should do. See OBIX for further documentation.
[2024-04-11] MEDS: fentaNYL CITRATE INJ (*CRX) 100 MCG/2 ML VIAL 50 MCG IV PUSH (14:52)
[2024-04-11] MEDS: ONDANSETRON INJ 4 MG/2 ML VIAL IV PUSH (15:02)
[2024-04-11] MEDS: LACTATED RINGERS 1,000 ML 125 ML IV CONT (15:30)
[2024-04-11 16:01] LABS: Rapid Plasma Reagin Non-Reactive (NonReactive)
[2024-04-11 18:17] LABS: OBXCEM ROM Plus Positive
[2024-04-11] MEDS: FAMOTIDINE 20 MG/2 ML VIAL IV PUSH (19:32)
--- NOTE | 2024-04-11 20:04 | WPDHPUPDATE1 ---
History and Physical Update Update Date/Time: 04/11/24 20:04 History and Physical has been reviewed, including an updated exam of the patient. There are NO changes in the patient's condition. Risks, benefits, and alternatives have been discussed and questions answered. Patient agrees to proceed with procedure.
--- NOTE | 2024-04-11 20:04 | WPDOBADMIT ---
Obstetrics - Admit Note Admission Note: record reviewed. No pertinent additions to the history and/or any subsequent changes in the physical findings that are not consistent with the expected course of the were found. Additions to the history and/or subsequent changes in the physical findings follow. None.
--- NOTE | 2024-04-11 20:04 | PM.OBPRVD ---
OB - Vaginal Delivery Note Procedure Delivery date: 04/11/24 Delivery augmentation: Pitocin Delivery monitor: External FHT and External Uterine Route of delivery: Episiotomy description: None Laceration Description: None Specimen: No Quantitative Blood Loss (ml): 200 Anesthesia type: Epidural Disposition: Floor Complications: No immediate complications Narrative: patient prepped draped in the usual manner for this procedure. Maternal expulsive efforts Readily delivered vertex over intact perineum. Suction nasopharynx, the rest of baby was delivered without difficulty, cord clamped cut, placenta delivered spontaneously. Cervix vagina vulvar were inspected with no lacerations or tears. Uterus was well contracted and not bleeding and at this point the procedure was considered terminated. [place] Baby Gestational Age by Date: 37 gender: Female presentation: vertex Placenta delivery description: Spontaneous Cord Vessel Description: 3 Vessels
[2024-04-11] MEDS: OXYTOCIN 30 UNITS/NS 500 ML 30 UNITS/500 ML BAG 125 UNITS IV CONT (20:25)
[2024-04-11] MEDS: WITCH HAZEL 40 PADS 1 PAD TOPICAL (21:47)
[2024-04-11] MEDS: BENZOCAINE 20% AER SPR (*SP) 56 GM CAN 1 SPRAY TOPICAL (21:47)
--- NOTE | 2024-04-11 22:07 | OBPPTRN ---
Patient transferred to post room #285 via ([facility]). Support person present. Oriented to unit, room, information board, rooming in, admission packet and security measures. Patient verbalizes understanding.
[2024-04-11] MEDS: IBUPROFEN 600 MG TABLET PO (23:01)
[2024-04-12 04:00] VITALS: BP 116/79; PULSE 68; RESP 18; TEMP 36.5; O2SAT 99
[2024-04-12 06:05] LABS: Hemoglobin 10.9 g/dL (12.0-15.0)
[2024-04-12 07:30] VITALS: BP 123/77; PULSE 67; RESP 18; TEMP 36.5
[2024-04-12] MEDS: TETANUS,DIPHTHERIA,AC PERTUSSIS ADULT (0.5 ML) BOOSTRIX IM (08:03)
[2024-04-12] MEDS: MULTIVIT/MIN/PREN/FOL AC/IRON TABLET 1 TAB PO (08:03)
[2024-04-12] MEDS: IBUPROFEN 600 MG TABLET PO ×2 (08:03→15:48)
--- NOTE | 2024-04-12 08:23 | P.DS_ITS ---
DS: Admitting Diagnosis Discharge Date 04/13/2024 Admitting Diagnosis DS: Discharge Diagnosis Discharge Diagnosis (1) , delivered: Code(s): O80 - Encounter for full-term uncomplicated delivery Status: Acute OB - DS: Summary OB Procedures : None OB Procedures Intrapartum: Spontaneous Vag Delivery OB Procedures: : None Peripartum Data Laceration Description: None Episiotomy description: None Time Spent with Patient Time attestation: Total time spent providing and/or coordinating discharge services: DS: Data Data Completed and Pending Labs on day of discharge: Labs from last 24 hours 04/12/24 04/11/24 04/11/24 03:38 10:48 09:45 WBC 10.4 H RBC 4.26 Hgb 10.9 L 12.0 Hct 34.0 L 36.7 L MCV 86.2 MCH 28.2 MCHC 32.7 RDW 12.9 Plt Count 265 MPV 11.8 H Immature Gran % (Auto) 0.7 H Neut % (Auto) 65.3 Lymph % (Auto) 24.8 [place] % (Auto) 7.6 Eos % (Auto) 1.2 Baso % (Auto) 0.4 Lymph # (Auto) 2.58 [place] # (Auto) 0.8 H Eos # (Auto) 0.1 Baso # (Auto) 0.0 Abs Immat Gran (auto) 0.07 H Absolute Neuts (auto) 6.8 H Absolute Nucleated RBC 0.000 Nucleated RBC % 0.0 Membranes Rupture Rom plus positive Membranes Rup Com Yes RPR Non-reactive HIV 1&2 Ab/P24 Ag 4thGn Negative Blood Type O Positive Antibody Screen Negative Discharge Plan Discharge Discharging Clinician: Prosper Desouza Patient Disposition: Home, Self-Care Activity: as tolerated Diet: as tolerated Patient Instructions: Antibiotic Form Stand Alone Forms: General Discharge Information Follow-up/Referrals: Prosper Desouza MD [Physician] - 3 Weeks Discharge Medications: New ibuprofen 600 mg Tablet 600 mg PO Q6H PRN (Reason: Cramping) Qty: 30 0RF Continued albuterol sulfate 90 mcg/actuation HFA aerosol inhaler 2 puff inhalation QID PRN (Reason: shortness of breath or wheezing) Qty: 8.5 0RF sertraline 50 mg tablet 100 mg PO DAILY PNV cmb#95-ferrous fumarate-FA [] 28 mg iron- 800 mcg Tablet 1 tablet PO DAILY Discontinued aspirin 81 mg Tablet 162 mg PO DAILY Date of admission: 04/11/24 08:08 Primary Care Provider: Terrie Forde Admitting Provider: Prosper Desouza Attending physician on admission: Prosper Desouza Condition: Stable
[2024-04-12] MEDS: DOCUSATE SODIUM 100 MG CAPSULE PO ×2 (09:16→15:48)
[2024-04-12 11:30] VITALS: BP 117/75; PULSE 81; RESP 18; TEMP 36.8
[2024-04-12] MEDS: ACETAMINOPHEN 325 MG TABLET 650 MG PO ×2 (11:34→20:47)
[2024-04-12] MEDS: LANOLIN (LANSINOH) 7.5 GM CREAM 1 APPLIC TOPICAL (18:06)
[2024-04-12 20:00] VITALS: BP 111/69; PULSE 78; RESP 18; TEMP 36.8; O2SAT 98
[2024-04-12] MEDS: SERTRALINE HCL 50 MG TABLET 100 MG PO (20:48)
[2024-04-13] MEDS: IBUPROFEN 600 MG TABLET PO (01:27)
[2024-04-13 08:05] VITALS: BP 122/77; PULSE 72; RESP 18; TEMP 36.8
[2024-04-15 11:23] VITALS: BP 112/68; PULSE 88; RESP 18; TEMP 37.3; O2SAT 100
== END 2024-04-13 11:30 | disposition home or self-care (01) | DRG 560 ==
LOC: ANHLDR 19:11 → ANHOB2 22:08
PROVIDERS: Admitting Provider Obstetrics & Gynecology; PCP Nurse Practitioner Family; Visit Provider Obstetrics & Gynecology
DX: O80 Encounter for full-term uncomplicated delivery (principal); Z3A.37 37 weeks gestation of pregnancy; Z37.0 Single live birth
CPT/HCPCS: 36415; 84112; 85014; 85018; 85025; 86592; 86703; 86850; 86900; 86901; 90715; A9270; G0432; J2405; J2590; J2795; J3010; J7120

== ENCOUNTER 2024-06-05 10:50 | Outpatient (CLI) | payer OTHER, SELFPAY ==
[2024-06-05 11:17] LABS: Basophils Percent Auto 0.7 % (0.2-1.2); Eosinophils Absolute Auto 0.2 K/mm3 (0-0.3); Eosinophils Percent Auto 4.4 % (0-4.4); Hematocrit 38.3 % (37.0-47.0); Hemoglobin 12.2 g/dL (12.0-15.0); Immature Granulocyte Absolute 0.01 K/mm3 (0.00-0.031); Immature Granulocyte Percent A 0.2 % (0-0.5); Lymphocytes Absolute Auto 2.05 K/mm3 (0.9-3.2); Lymphocytes Percent Auto 37.7 % (18.3-44.2); Mean Corpuscular HGB Conc 31.9 g/dl (32-36); Mean Corpuscular Hemoglobin 27.4 pg (26-34); Mean Corpuscular Volume 86.1 fl (80-100); Mean Platelet Volume 8.9 fl (7.4-10.4); Monocytes Absolute Auto 0.4 K/mm3 (0.1-0.6); Neutrophils Absolute Auto 2.7 K/mm3 (1.3-6.7); Platelet Count Result 282 k/mm3 (150-375); Red Blood Count 4.45 M/mm3 (4.2-5.4); Red Cell Distribution Width 15.2 % (11.5-14.5); White Blood Count 5.4 K/mm3 (4.5-10.0)
[2024-06-05 11:31] LABS: Alanine Aminotransferase 16 U/L (6-35); Albumin Level 4.6 g/dL (3.5-5.1); Alkaline Phosphatase 69 U/L (38-126); Anion Gap 10 mmol/L (4-12); Aspartate Amino Transferase 26 U/L (14-36); Bilirubin,Total 1.2 mg/dL (0.2-1.3); Blood Urea Nitrogen 16 mg/dL (7-17); Calcium 9.4 mg/dL (8.4-10.2); Carbon Dioxide 25 mmol/L (22-30); Chloride 104 mmol/L (98-107); Estimated Glomerular Filt Rate > 60; Glucose 89 mg/dL (65-110); Potassium 4.1 mmol/L (3.4-5.0); Sodium 139 mmol/L (137-145)
[2024-06-05 11:53] LABS: Erythrocyte Sedimentation Rate 13 mm/hr (0-20)
[2024-06-06 12:08] LABS: CRP, High Sensitivity 1.1 mg/L
[2024-06-09 15:33] LABS: ANA Cascade Screen NEGATIVE (NEGATIVE)
== END 2024-06-05 10:51 | disposition home or self-care (01) ==
PROVIDERS: PCP Nurse Practitioner Family; Visit Provider Nurse Practitioner Family
DX: R55 Syncope and collapse (principal); D89.89 Other specified disorders involving the immune mechanism, not elsewhere classified; E07.9 Disorder of thyroid, unspecified; E80.4 Gilbert syndrome
CPT/HCPCS: 36415; 80053; 84443; 85025; 85652; 86038; 86141; 86225; 86235; 86364

== ENCOUNTER 2024-06-12 15:44 | Emergency (ER) | payer OTHER, SELFPAY ==
[2024-06-12 15:48] VITALS: BP 105/53; PULSE 71; RESP 16; TEMP 36.3; O2SAT 100
--- NOTE | 2024-06-12 20:30 | ED.FEMALEGU ---
HPI - Female Genitourinary General Chief complaint: Vaginal Bleeding Stated complaint: vaginal bleeding x2 days, weakness Time Seen by Provider: 06/12/24 19:34 History of Present Illness HPI Narrative: 24-year-old female approximately 8 weeks presenting with vaginal bleeding. Patient states that this is her 1st menstrual period since delivering her baby. States that she was actually concerned that she was again and then the bleeding restarted. She is concerned that she might be miscarrying. States that she has been bleeding much heavier than normal for her. She has been having to change her menstrual disc much more frequently than normal. States that she has also been feeling lightheaded for the last couple days though she is currently being worked up for POTS and states that it does not seem worse than normal. Reports some abdominal cramping but no other pain. No fevers. No further complaints. Related Data Home Medications Medication Instructions Recorded Confirmed vit no.95-ferrous 1 tablet PO DAILY 04/01/24 06/04/24 fumarate 28 mg-folic acid 800 mcg tablet () Allergies Allergy/AdvReac Type Severity Reaction Status Date / Time No Known Allergies Allergy Verified 06/12/24 15:46 Review of Systems Review of Systems: All systems reviewed & are unremarkable except as noted in HPI and below PMFSH Past Medical History Medical History IUD surveillance removed 07/02/2023 Suppression of menses Family History Family History Other No pertinent family history Social History Social History Years smoked: 2 Smoking status: Never smoker Alcohol intake: former Substance use: never Do You Feel Safe in your Home?: Yes Lack of Transportation: No Lack of Food: Never True Current Housing: I Have Housing Concerned About Future Housing: No Difficulty Paying Gas/Electric Bills: No Difficulty Paying for Meds: No Currently Unemployed: No Education: High School Diploma/GED Difficulty w/ Childcare or Family Care: No Living arrangements: with family 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 EYES: PERRLA and EOMI. ENT: Mucous membranes moist. NECK: Supple. CHEST: No respiratory distress. HEART: Regular rate and rhythm ABDOMEN: Soft, very mild lower abdominal tenderness, no guarding or rebound EXTREMITIES: Normal range of motion SKIN: Warm, dry, no rash. NEURO: Alert and oriented x3. PSYCH: Normal mood and affect. Course Vital Signs Vital signs: Vital Signs Temperature 97.3 F L 06/12/24 15:48 Pulse Rate 71 06/12/24 15:48 Respiratory Rate 16 06/12/24 15:48 Blood Pressure 105/53 L 06/12/24 15:48 Pulse Oximetry 100 06/12/24 15:48 Oxygen Delivery Room Air 06/12/24 15:48 Temperature 97.3 F L 06/12/24 15:48 Pulse Rate 71 06/12/24 15:48 Respiratory Rate 16 06/12/24 15:48 Blood Pressure 105/53 L 06/12/24 15:48 Pulse Oximetry 100 06/12/24 15:48 Oxygen Delivery Room Air 06/12/24 15:48 MDM - Female Genitourinary MDM Narrative Medical decision making narrative: 24-year-old female presenting with vaginal bleeding and lightheadedness. Vitals here are within normal limits. Exam remarkable for the above. Offered to perform a pelvic exam, patient declines. Blood work is unremarkable. Normal hemoglobin. Beta hCG is undetectable. UA is unremarkable. Patient resting comfortably in reevaluation. Discussed the reassuring workup. Feel she is safe for outpatient management. Advised clos
[2024-06-12] MEDS: SODIUM CHLORIDE 0.9% IV 1,000 ML 999 ML IV CONT (20:57)
[2024-06-12 21:08] LABS: Add Urine Microscopic? YES; Appearance Urine Clear (Clear); Bacteria Urine None Seen /hpf; Bilirubin Urine Negative (Negative); Blood Urine 2+ (Negative); Color Urine Yellow (Yellow); Glucose Urine UA Negative (Negative); Ketones Urine Negative (Negative); Leukocyte Esterase Ur Negative LEU/UL (Negative); Nitrate Urine Negative (Negative); Non Pathogenic Casts 0-2; Protein Urine Negative (Negative); RBC Urine 0-2 /hpf (0-2); Specific Grav Ur 1.011 (1.001-1.035); Squamous Epithelial Cell Urine None Seen /hpf (Few); Urobilinogen Urine 0.2 mg/dL (<2.0); WBC Urine 0-5 /hpf (0-3)
[2024-06-12 21:15] LABS: Basophils Percent Auto 0.6 % (0.2-1.2); Eosinophils Absolute Auto 0.2 K/mm3 (0-0.3); Eosinophils Percent Auto 3.7 % (0-4.4); Hemoglobin 12.9 g/dL (12.0-15.0); Immature Granulocyte Absolute 0.01 K/mm3 (0.00-0.031); Immature Granulocyte Percent A 0.2 % (0-0.5); Lymphocytes Absolute Auto 2.34 K/mm3 (0.9-3.2); Lymphocytes Percent Auto 43.6 % (18.3-44.2); Mean Corpuscular HGB Conc 33.1 g/dl (32-36); Mean Corpuscular Hemoglobin 28.4 pg (26-34); Mean Corpuscular Volume 85.9 fl (80-100); Mean Platelet Volume 9.2 fl (7.4-10.4); Monocytes Absolute Auto 0.3 K/mm3 (0.1-0.6); Monocytes Percent Auto 6.3 % (2.6-8.5); Neutrophils Absolute Auto 2.5 K/mm3 (1.3-6.7); Neutrophils Percent Auto 45.6 % (45.5-73.1); Platelet Count Result 281 k/mm3 (150-375); Red Blood Count 4.54 M/mm3 (4.2-5.4); White Blood Count 5.4 K/mm3 (4.5-10.0)
[2024-06-12 21:24] LABS: Anion Gap 8 mmol/L (4-12); Blood Urea Nitrogen 10 mg/dL (7-17); Calcium 9.3 mg/dL (8.4-10.2); Carbon Dioxide 28 mmol/L (22-30); Chloride 102 mmol/L (98-107); Estimated CRCL calculation 86 ml/min; Estimated Glomerular Filt Rate > 60; Glucose 96 mg/dL (65-110); Potassium 3.5 mmol/L (3.4-5.0); Sodium 138 mmol/L (137-145)
[2024-06-12 21:41] LABS: Beta HCG Quantitative < 2.39 mIU/ML
[2024-06-13 01:26] VITALS: BP 110/62; PULSE 73; RESP 15; O2SAT 100
== END 2024-06-13 01:27 | disposition home or self-care (01) ==
PROVIDERS: Emergency Provider Emergency Medicine; PCP Nurse Practitioner Family
DX: N93.9 Abnormal uterine and vaginal bleeding, unspecified (principal); R42 Dizziness and giddiness
CPT/HCPCS: 36415; 80048; 81001; 84702; 85025; 96360; 99283; J7030

== ENCOUNTER 2024-07-14 19:41 | Emergency (ER) | payer SELFPAY ==
[2024-07-14 19:46] VITALS: BP 131/76; PULSE 108; RESP 18; TEMP 36.7; O2SAT 98
--- NOTE | 2024-07-14 19:56 | ED.EAR ---
HPI - Ear Problem General Chief complaint: Ear Stated complaint: Ear Pain Time Seen by Provider: 07/14/24 19:56 Source: patient, RN notes reviewed and old records reviewed Mode of arrival: ambulatory Limitations: no limitations History of Present Illness HPI Narrative: 24 year old female accompanied by significant other with complaints of 2 week duration of upper respiratory symptoms which includes cough, runny nose,sinus congestion, sore throat and present also ear pain, Patient reports that she has had bilateral ear pain for the past 3 days with some ear drainage right ear.. Patient reports that she has been taking Mucinex and also some NyQuil for her symptoms. Patient reports that she initially had some fevers. MD Complaint: ear pain and ear discharge (right) Location: right ear Severity: moderate Discharge from ear: Reports yes - clear Treatment prior to arrival: other (Mucinex and NyQuil) Related Data Allergies Allergy/AdvReac Type Severity Reaction Status Date / Time No Known Allergies Allergy Verified 07/14/24 19:45 Review of Systems Review of Systems: CONSTITUTIONAL: Reports malaise, no present chills, sweats, or fever. EYES: Denies visual changes, redness, or discharge. ENT: Reports rhinorrhea, congestion, sinus pain,bilateral otalgia and sore throat. CARDIOVASCULAR: Denies chest pain, palpitations, or edema. RESPIRATORY: Reports cough.? Denies dyspnea. GASTROINTESTINAL: Denies abdominal pain, nausea, vomiting, diarrhea SKIN: Denies rash or itching. MUSCULOSKELETAL: Denies myalgia. NEUROLOGIC: Denies headache. All systems reviewed & are unremarkable except as noted in HPI and below PMFSH Past Medical History Medical History (Updated 07/16/24 @ 10:58 by Miryam Christie NP) ADHD Anxiety and depression History of blood clotting disorder IUD surveillance removed 07/02/2023 Suppression of menses Urinary tract infection Family History Family History Other No pertinent family history Social History Social History Years smoked: 2 Smoking status: Former smoker Alcohol intake: former Substance use: never Do You Feel Safe in your Home?: Yes Lack of Transportation: No Lack of Food: Never True Current Housing: I Have Housing Concerned About Future Housing: No Difficulty Paying Gas/Electric Bills: No Difficulty Paying for Meds: No Currently Unemployed: No Education: High School Diploma/GED Difficulty w/ Childcare or Family Care: No Living arrangements: with family 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 There is no relevant family history pertinent to the presenting complaint Exam Narrative: GENERAL: Well-appearing, well-nourished, and in no acute distress. HEAD: Normocephalic EYES: PERRLA, conjunctivae clear ENT: Nares clear, turbinates edematous and erythematous, clear discharge. Mucous membranes moist.Left TM red, right TM pearly alvarez with dull light reflex ; no tragal tenderness. Oropharynx erythematous without lesions. Tonsils not enlarged and without exudate, no drooling, no hoarseness, no trismus, uvula midline.Post nasal drainage NECK: Supple. No lymphadenopathy CHEST: Clear to auscultation, breath sounds equal. No wheezing, rhonchi, rales, or stridor. No respiratory distress, speaks in full sentences. some cough noted SAO2 98% on room air HEART: Regular rate and rhythm. No murmur heard. SKIN: Warm, dry, no rash. NEURO: Alert and oriented x3. PSYCH: Normal mood and affect Course Course Emergency Course: Patient is aware of diagnosis, understands and agrees to treatment plan.? Anticipatory guidance given.? Patient agrees to follow-up as directed and is aware of reasons to seek care at the emergency department. Portions of this record may have been created with voice recognition software Level of Care: Express Care Visit Vital Signs Vital signs: Vital Signs Temperature 36.7 C 07/14/24 19:46 Pulse Rate 108 H 07/14/24 19:46 Respiratory Rate 18 07/14/24 19:46 Blood Pressure 131/76 07/14/24 19:46 Pulse Oximetry 98 07/14/24 19:46 Oxygen Delivery Room Air 07/14/24 19:46 Temperature 36.7 C 07/14/24 19:46 Pulse Rate 108 H 07/14/24 19:46 Respiratory Rate 18 07/14/24 19:46 Blood Pressure 131/76 07/14/24 19:46 Pulse Oximetry 98 07/14/24 19:46 Oxygen Delivery Room Air 07/14/24 19:46 Reviewed Medical Decision Making Differential Diagnosis Differential Diagnosis: URI, otitis media, viral infection, pharyngitis, strep pharyngitis, acute cough Medical Records Medical records reviewed: Yes I reviewed the external patient's medical records. Vital Signs Vital Signs: Vital Signs Temperature 36.7 C 07/14/24 19:46 Pulse Rate 108 H 07/14/24 19:46 Respiratory Rate 18 07/14/24 19:46 Blood Pressure 131/76 07/14/24 19:46 Pulse Oximetry 98 07/14/24 19:46 Oxygen Delivery Room Air 07/14/24 19:46 Temperature 36.7 C 07/14/24 19:46 Pulse Rate 108 H 07/14/24 19:46 Respiratory Rate 18 07/14/24 19:46 Blood Pressure 131/76 07/14/24 19:46 Pulse Oximetry 98 07/14/24 19:46 Oxygen Delivery Room Air 07/14/24 19:46 Lab Data Lab results reviewed: Yes I reviewed the patient's lab results. Lab results narrative: strep screen negative, culture sent Labs: Lab Results 07/14/24 Range/Units 20:01 POC Grp A Strep Screen Negative (Negative) Critical Care Time Critical Care Time Critical Care Time: No Discharge Plan Discharge Clinical Impression: Acute left otitis media Patient Disposition: Home, Self-Care Condition: Stable Instructions: Antibiotic Form, Ear Infection (GEN) Additional Instructions: Increase fluids especially juices and water [id number] cough and cold medicine of your choice for your symptoms Zyrtec Claritin or Marlen daily Tylenol or ibuprofen for any fever pain Continue your inhaler/nebulizer as directed heat to the face 20-30 minutes 4-6 times a day for pain Salt water gargles, throat lozenges or throat sprays as desired Antibiotic as directed--finished the medication If your symptoms persist, change or worsen significantly before you can contact your personal physician then please, without delay, go to the emergency department for further evaluation. Follow-up with PCP in 7-10 days or sooner if needed Follow up with PCP soon in regards to your blood pressure which is elevated above threshold for referral. Blood pressure above 120/80 may indicate pre-hypertension. 131/76 Prescriptions: New cephalexin 500 mg capsule 1,000 mg PO Q12H Qty: 40 0RF No Action sertraline 150 mg capsule 150 mg PO DAILY Qty: 90 1RF dextroamphetamine-amphetamine [Adderall XR] 10 mg capsule,extended release 24hr 10 mg PO DAILY Qty: 30 0RF dextroamphetamine-amphetamine [Adderall] 12.5 mg tablet 12.5 mg PO DAILY Qty: 30 0RF Rx Instructions: take in the afternoon if needed albuterol sulfate 90 mcg/actuation HFA aerosol inhaler 2 puff inhalation QID PRN (Reason: shortness of breath or wheezing) Qty: 8.5 2RF Follow-up/Referrals: PHYSICIAN,EAR NOSE AND THROAT SPECIALIST [Primary Care Provider] - Time of Disposition: 20:25 Quality Nila Coma Scale Eyes: Open Verbal: Oriented and Alert Motor: Follows Commands Nila Coma Total Score: 15
[2024-07-14 20:03] LABS: EDSTREPNEGPOS1 Negative (Negative)
== END 2024-07-14 20:27 | disposition home or self-care (01) ==
PROVIDERS: Emergency Provider Registered Nurse
DX: H66.92 Otitis media, unspecified, left ear (principal); Z87.891 Personal history of nicotine dependence; Z86.2 Personal history of diseases of the blood and blood-forming organs and certain disorders involving the immune mechanism
CPT/HCPCS: 87081; 87880; 99213; G0463

== ENCOUNTER 2024-09-27 12:02 | Outpatient (CLI) | payer OTHER, SELFPAY ==
[2024-09-27 12:32] LABS: Hemoglobin A1C 5.2 % (<5.7)
[2024-09-30 15:58] LABS: Immunoglobulin E 9 kU/L (<OR=114)
[2024-09-30 16:17] LABS: Alternaria alternata IgE <0.10 kU/L; Alternaria alternata IgE Class 0; Aspergillus fumigatus IgE <0.10 kU/L; Bermuda Grass (G2) IgE <0.10 kU/L; Bermuda Grass (G2) IgE Class 0; Cat Dander IgE <0.10 kU/L; Cat Dander IgE Class 0; Cladosporium herbarum IgE <0.10 kU/L; Cladosporium herbarum IgE Clas 0; Cockroach IgE <0.10 kU/L; Cockroach IgE Clas 0; Common Ragweed IgE Class 0; Cottonwood IgE <0.10 kU/L; Dermatophagoides Farinae Class 0; Dermatophagoides Pterony Class 0; Dermatophagoides Pteronyssinus <0.10 kU/L; Dog Dander IgE <0.10 kU/L; Elm (T8) IgE <0.10 kU/L; Elm (T8) IgE Class 0; Hickory/Pecan IgE <0.10 kU/L; Hickory/Pecan IgE Class 0; Maple Box Elder IgE Class 0; Mountain Cedar IgE <0.10 kU/L; Mountain Cedar IgE Class 0; Mouse Urine Proteins IgE <0.10 kU/L; Mouse Urine Proteins IgE Class 0; Oak IgE <0.10 kU/L; Peniciliium notatum class 0; Penicillium notatum (M1) IgE <0.10 kU/L; Rough Marsh <0.10 kU/L; Rough Marsh Elder Class 0; Rough Pigweed (W14) IgE <0.10 kU/L; Rough Pigweed (W14) IgE Class 0; Russian Thistle <0.10 kU/L; Sycamore IgE <0.10 kU/L; Sycamore IgE Class 0; Timothy Grass IgE <0.10 kU/L; Timothy Grass IgE Class 0; Walnut Tree IgE <0.10 kU/L; Walnut Tree IgE Class 0; White Ash IgE Class 0; White Mulberry IgE <0.10 kU/L; White Mulberry IgE Class 0
--- OUTSIDE RECORDS SUMMARY | 2024-10-02 08:58 | XMS_ITS | Clinical Summary ---
Author Organization [facility] [address] [place] [address] Care Team Providers Care Cloth Bolt Bander Name Role Phone Terrie Forde NP Primary Care Provider [phone] Allergies No known active allergies Medications dextroamphetamine- amphetamine XR (ADDERALL XR) 10 mg 24 hr capsule Take 1 capsule (10 mg total) by mouth daily 4 Active dextroamphetamine- amphetamine (ADDERALL) 12.5 mg tablet TAKE 1 TABLET BY MOUTH DAILY IN THE AFTERNOON NEEDED 4 Active ondansetron ODT (ZOFRAN-ODT) 4 mg disintegrating tablet DISSOLVE 1 TABLET ON THE TONGUE EVERY 8 HOURS NEEDED FOR NAUSEA OR VOMITING 4 Active sertraline (ZOLOFT) 100 mg tablet 4 Active sertraline (ZOLOFT) 50 mg tablet Take 1 tablet (50 mg total) by mouth daily 4 Active ARIPiprazole (ABILIFY) 10 mg tablet Take 1 tablet (10 mg total) by mouth daily 4 Active traZODone (DESYREL) 50 mg tablet TAKE 1 TABLET BY MOUTH EVERY DAY AT BEDTIME NEEDED FOR INSOMNIA 4 Active Active Problems Problem Noted Date Diagnosed Date Syncope and collapse 07/04/2024 Encounters Date Type Department Care Team Description 08/15/2024 3:00 PM ONCOLOGY SOCIAL WORK Office Visit [facility] Cardiology [address] 8th [place] [address] [place] [address] Jena Stout MD Syncope and collapse 08/15/2024 Telephone [facility] Cardiology [address] [facility] [place] Medicine 8th [place] [address] [place] [phone] Jena Stout MD 07/25/2024 3:00 PM ONCOLOGY SOCIAL WORK Ancillary Procedure [facility] Cardiology at [address] [place] [phone] Syncope and collapse 07/04/2024 10:15 AM CDT Office Visit [facility] Cardiology [address] [place] [phone] Delmar Gracia MD Lipid screening (Primary Dx); Syncope and collapse 07/04/2024 Telephone [facility] Cardiology [facility] [place] Medicine 8th [place] [address] [place] [address] Charlene Quiñonez 07/04/2024 Telephone [facility] Cardiology [address] [facility] [address] [place] [address] Delmar Gracia MD from Last 3 Months Surgical History Surgery Date Site/Laterality Comments WISDOM TOOTH EXTRACTION Medical History Medical History Date Comments Syncope Dizziness Adhd Family History Medical History Relation Name Comments No Known Problems Brother 1 No Known Problems Brother 2 No Known Problems Mother No Known Problems Sister 1 No Known Problems Sister 2 No Known Problems Sister 3 Relation Name Status Comments Brother 1 Alive Brother 2 Alive Father Alive Mother Alive Sister 1 Alive Sister 2 Alive Sister 3 Alive Social History Tobacco Use Types Packs/Day Years Used Date Smoking Tobacco: Never Passive Smoke Exposure: Past Smokeless Tobacco: Never Tobacco Cessation:Counseling Given: Not Answered Comments Unknown Sex and Gender Information Value Date Recorded Sex Assigned at Not on file Legal Sex Female 12:17 PM CDT Gender Identity Not on file Sexual Orientation Not on file Obstetrics History Last Filed Vital Signs Vital Sign Reading Time Taken Comments Blood Pressure 125/75 08/15/2024 3:00 PM ONCOLOGY SOCIAL WORK Pulse 90 08/15/2024 3:00 PM ONCOLOGY SOCIAL WORK Temperature - - Respiratory Rate - - Oxygen Saturation 98% 08/15/2024 3:00 PM ONCOLOGY SOCIAL WORK Inhaled Oxygen Concentration - - Weight 57.5 kg (126 lb 12.8 oz) 08/15/2024 3:00 PM ONCOLOGY SOCIAL WORK Height 157.5 cm (5' 2 ) 08/15/2024 3:00 PM ONCOLOGY SOCIAL WORK Body Mass Index 23.19 08/15/2024 3:00 PM ONCOLOGY SOCIAL WORK Plan of Treatment Health Maintenance Due Date Last Done Comments Cervical Cancer Screening 2002 Chlamydia and Gonorrhea (GC/ CT) Screening 2002 Depression Screening 2002 Hepatitis C Screening 2002 Varicella Vaccines (1 of 2 - 13+ 2-dose series) 2015 HPV Vaccines (1 - 3-dose series) 2017 Meningococcal B Vaccine (1 o f 2 - Patient Seeks Protection) 2018 Hepatitis B Screening 2020 Regular Well Visit/Exam 18-64 2020 Influenza Vaccine (#1) 2024 DTaP/Tdap/Td Vaccine (2 - Td or Tdap) 04/12/2034 04/12/2024 Pneumococcal vaccine <65 Aged Out No longer eligible based on patient's age to complete this topic Procedures Procedure Name Priority Date/Time Associated Diagnosis Comments ECG 12-LEAD Routine 08/15/2024 3:03 PM ONCOLOGY SOCIAL WORK Syncope and collapse TRANSTHORACIC ECHO (TTE) COMPLETE W DOPPLER/CF WO CONTRAST Routine 07/25/2024 3:41 PM ONCOLOGY SOCIAL WORK Syncope and collapse ECG 12-LEAD Routine 07/04/2024 11:36 AM CDT Syncope and collapse POCT LIPID PANEL Routine 07/04/2024 10:4 2 AM CDT Lipid screening from Last 3 Months Results * ECG 12 lead (08/15/2024 3:03 PM ONCOLOGY SOCIAL WORK) us Jena Stout MD ECG ORDERABLES Edited Result - Final * TRANSTHORACIC ECHO (TTE) COMPLETE W DOPPLER/CF WO CONTRAST (07/25/2024 3:41 PM ONCOLOGY SOCIAL WORK) Anatomical Region Laterality Modality Ultrasound 07/25/2024 3:11 PM ONCOLOGY SOCIAL WORK Narrative 07/25/2024 5:23 PM ONCOLOGY SOCIAL WORK [facility] Cardiology [address] [facility] [facility] [address] [facility], [address], [place] [address] P:[phone] P:[phone] Echocardiographic Report Patient Name: CRISTIAN GILBERT : 2000 Study Date: 07/25/2024 3:11:31 PM Gender: F Tech: Location: EDW Ref Provider: DELMAR GRACIA ?Height(Cm): 157 BSA: 1.58 Weight(Kg): 57.2 Heart Rate: 68 BP: 94 / 64 Quality: Good Order Provider: DELMAR GRACIA PROCEDURES: Echocardiographic Report: Transthoracic echocardiogram with complete 2D, M-Mode, and color Doppler examination. INDICATIONS: Syncope and collapse. Measurements: 2D/MM ?Value ? Range ?Doppler ?Value ? Range EF Mod ? 66 ? AV Mean PG ? 3 mmHg EF Teich MM ?60 % ?[ 54 - 74 ] ?AV Peak Shyam ?1.15 m/s ?[ 1.00 - 1.70 ] LVIDd 2D ? 3.97 cm ? [ 3.80 - 5.20 ] ?AV Peak PG ? 5 mmHg LVIDd MM ? 4.37 cm ? [ 3.80 - 5.20 ] ?AV VTI ? 23.85 cm LVIDs 2D ? 2.73 cm ? [ 2.20 - 3.50 ] ?LVOT Peak Shyam ?0.80 m/s ?[ 0.70 - 1.10 ] LVIDs MM ? 2.98 cm ? [ 2.20 - 3.50 ] ?LVOT VTI ? 16.99 cm LVPWd 2D ? 0.90 cm ? [ 0.60 - 0.90 ] ?MV E Peak Shyam ?0.97 m/s ?[ 0.60 - 1.30 ] LVPWd MM ? 0.67 cm ? [ 0.60 - 0.90 ] ?MV A Peak Shyam ?0.50 m/s ?[ 1.00 - 1.20 ] IVSd 2D ?0.70 cm ? [ 0.60 - 0.90 ] ?MV Decel Time ?231 msec ?[ 104 - 258 ] IVSd MM ?0.76 cm ? [ 0.60 - 0.90 ] ?PV Peak Shyam ?0.79 m/s ?[ 0.40 - 0.80 ] LA Dimension MM ?2.29 cm ? [ 2.70 - 3.80 ] ?TR Peak Shyam ?1.81 m/s ?[ 1.00 - 2.80 ] AoR Diam MM ?2.81 cm ? [ 2.70 - 3.70 ] ?TR Peak PG ? 13 mmHg LA Volume Index ?18 cc/m2 ?[ 16 - 34 ] ?RVSP ? 16.00 mmHg ?[ 10.00 - 36.00 ] ACS MM ? 2.01 cm ?E` ? 0.16 m/s E/E` ? 6 2D/MM ?Value ? Range ?Doppler ?Value ? Range - FINDINGS: Interpretation Site: Exam was interpreted at [facility]. Left Ventricle: Normal left ventricular systolic function. No focal wall motion abnormalities. Normal left ventricular size. Normal left ventricular wall thickness. Normal left ventricular diastolic function. Ejection fraction is visually estimated at 60-65 %. Ejection fraction is measured at 66 %. Global Longitudinal Strain is -19 %. GLS is normal. Right Ventricle: Normal right ventricular size. Normal right ventricular systolic function. Left Atrium: The left atrium is normal in size. Right Atrium: The right atrium is normal in size. Atrial Septum: Normal atrial septum. Mitral Valve: Normal appearance of the mitral valve. Trivial regurgitation of the mitral valve. There is no hemodynamically significant mitral stenosis by Doppler. Aortic Valve: Normal appearance of the aortic valve. No evidence of hemodynamically significant aortic stenosis by Doppler. Trileaflet aortic valve. Trace aortic valve regurgitation. Tricuspid Valve: Normal appearance of the tricuspid valve. Normal right ventricular systolic pressure. Estimated peak RVSP is 15-20 mmHg. Mild tricuspid regurgitation. Pulmonic Valve: Normal appearance of the pulmonic valve. No pulmonic stenosis. Mild pulmonic regurgitation. Pericardium: Normal pericardium with no significant pericardial effusion. Aorta: Normal aortic root. IVC: Normal size and normal respiratory collapse consistent with normal right atrial pressure (<5 mmHg). CONCLUSIONS: Normal left ventricular systolic function. No focal wall motion abnormalities. Normal left ventricular size. Normal left ventricular wall thickness. Normal left ventricular diastolic function. Ejection fraction is visually estimated at 60-65 %. Ejection fraction is measured at 66 %. Global Longitudinal Strain is -19 %. GLS is normal. Mild tricuspid regurgitation. Mild pulmonic regurgitation. Normal sinus rhythm. Electronically Signed By: Sin Arthur MD 2024-07-25 17:22:36 ONCOLOGY SOCIAL WORK Procedure Note Sin Arthur MD - 07/25/2024 [facility] Cardiology [address], [address], [place] [address] P:[phone] P:[phone] Echocardiographic Report Patient Name: CRISTIAN GILBERT : 2000 Study Date: 07/25/2024 3:11:31 PM Gender: F Tech: Location: EDW Ref Provider: DELMAR GRACIA Height(Cm): 157 BSA: 1.58 Weight(Kg): 57.2 Heart Rate: 68 BP: 94 / 64 Quality: Good Order Provider: DELMAR GRACIA PROCEDURES: Echocardiographic Report: Transthoracic echocardiogram with complete 2D, M-Mode, and color Dopplerexamination. INDICATIONS: Syncope and collapse. Measurements: 2D/MM Value Range Doppler ValueRange EF Mod 66 AV Mean PG 3mmHg EF Teich MM 60 % [ 54 - 74 ] AV Peak Shyam 1.15m/s [ 1.00 - 1.70 ] LVIDd 2D 3.97 cm [ 3.80 - 5.20 ] AV Peak PG 5mmHg LVIDd MM 4.37 cm [ 3.80 - 5.20 ] AV VTI 23.85cm LVIDs 2D 2.73 cm [ 2.20 - 3.50 ] LVOT Peak Shyam 0.80m/s [ 0.70 - 1.10 ] LVIDs MM 2.98 cm [ 2.20 - 3.50 ] LVOT VTI 16.99cm LVPWd 2D 0.90 cm [ 0.60 - 0.90 ] MV E Peak Shyam 0.97m/s [ 0.60 - 1.30 ] LVPWd MM 0.67 cm [ 0.60 - 0.90 ] MV A Peak Shyam 0.50m/s [ 1.00 - 1.20 ] IVSd 2D 0.70 cm [ 0.60 - 0.90 ] MV Decel Time 231msec [ 104 - 258 ] IVSd MM 0.76 cm [ 0.60 - 0.90 ] PV Peak Shyam 0.79m/s [ 0.40 - 0.80 ] LA Dimension MM 2.29 cm [ 2.70 - 3.80 ] TR Peak Shyam 1.81m/s [ 1.00 - 2.80 ] AoR Diam MM 2.81 cm [ 2.70 - 3.70 ] TR Peak PG 13mmHg LA Volume Index 18 cc/m2 [ 16 - 34 ] RVSP 16.00mmHg [ 10.00 - 36.00 ] ACS MM 2.01 cm E` 0.16m/s E/E` 6 2D/MM Value Range Doppler ValueRange - FINDINGS: Interpretation Site: Exam was interpreted at [facility]. Left Ventricle: Normal left ventricular systolic function. No focal wall motionabnormalities. Normal left ventricular size. Normal left ventricular wall thickness. Normal leftventricular diastolic function. Ejection fraction is visually estimated at 60-65 %.Ejection fraction is measured at 66 %. Global Longitudinal Strain is -19 %. GLS is normal. Right Ventricle: Normal right ventricular size. Normal right ventricular systolicfunction. Left Atrium: The left atrium is normal in size. Right Atrium: The right atrium is normal in size. Atrial Septum: Normal atrial septum. Mitral Valve: Normal appearance of the mitral valve. Trivial regurgitation of the mitralvalve. There is no hemodynamically significant mitral stenosis by Doppler. Aortic Valve: Normal appearance of the aortic valve. No evidence of hemodynamicallysignificant aortic stenosis by Doppler. Trileaflet aortic valve. Trace aortic valveregurgitation. Tricuspid Valve: Normal appearance of the tricuspid valve. Normal right ventricularsystolic pressure. Estimated peak RVSP is 15-20 mmHg. Mild tricuspid regurgitation. Pulmonic Valve: Normal appearance of the pulmonic valve. No pulmonic stenosis. Mildpulmonic regurgitation. Pericardium: Normal pericardium with no significant pericardial effusion. Aorta: Normal aortic root. IVC: Normal size and normal respiratory collapse consistent with normal rightatrial pressure (<5 mmHg). CONCLUSIONS: Normal left ventricular systolic function. No focal wall motionabnormalities. Normal left ventricular size. Normal left ventricular wall thickness. Normal leftventricular diastolic function. Ejection fraction is visually estimated at 60-65 %.Ejection fraction is measured at 66 %. Global Longitudinal Strain is -19 %. GLS is normal. Mild tricuspid regurgitation. Mild pulmonic regurgitation. Normal sinus rhythm. Electronically Signed By: Sin Arthur MD 2024-07-25 17:22:36 ONCOLOGY SOCIAL WORK us Delmar Gracia MD CV ECHO PROCEDURES Final Result * ECG 12 lead (07/04/2024 11:36 AM CDT) Delmar Gracia MD ECG ORDERABLES Final Re sult * POCT lipid panel (07/04/2024 10:42 AM CDT) Cholesterol, POC 162 mg/dL HDL, POC 40 mg/dL Triglycerides, POC 129 mg/dL LDL Cholesterol POC 96 mg/dL Chol/HDL Ratio, POC 2.4 Non-HDL Cholesterol, POC 122 mg/dL Cholesterol Total, POC 162 mg/dL Capillary blood 07/04/2024 1 0:42 AM CDT Delmar Gracia MD POINT OF CARE TEST ORDER ARUNA Final Result from Last 3 Months Insurance [facility] Care Teams Cloth Bolt Bander Relationship Specialty Start Date End Date Terrie Forde, GRACE [address] [place] [address] PCP - General Family Medicine 06/05/24
--- OUTSIDE RECORDS SUMMARY | 2024-10-02 08:58 | XMS_ITS | Referral Summary ---
Author Organization [place] [address] Address [address] [facility] [address] [place] [address] Care Team Providers Care Notary Public Name Role Phone Terrie Forde NP Primary Care Provider [phone] Encounters Date Type Department Care Team Description 08/15/2024 Telephone [facility] Cardiology [facility] [address] [place] [address] [place] [address] Jena Stout MD 08/15/2024 3:00 PM PHYSICAL SCIENCE AIDE Office Visit [facility] Cardiology [address] [facility] [address] [place] [address] [place] [address] Jena Stout MD Syncope and collapse 07/25/2024 3:00 PM PHYSICAL SCIENCE AIDE Ancillary Procedure [facility] Medical Group Cardiology at [address] [place] [id number] Syncope and collapse 07/04/2024 Telephone [facility] Cardiology [facility] [address]th [place] [address] [place] [address] Charlene Quiñonez 07/04/2024 Telephone [facility] Medical [facility] Cardiology [address] [place] [address] [address] [place] [address] Delmar Gracia MD 07/04/2024 10:15 AM CDT Office Visit [facility] Medical Group Cardiology [address] [facility] [address] [place] [address] Delmar Gracia MD Lipid screening (Primary Dx); Syncope and collapse from Last 3 Months Allergies No known active allergies Medications dextroamphetamine- [...] Date Diagnosed Date Syncope and collapse 07/04/2024 Social History Tobacco Use Types Packs/Day Years Used Date Smoking Tobacco: Never Passive Smoke Exposure: Past Smokeless Tobacco: Never Tobacco Cessation:Counseling Given: Not Answered Comments Unknown Sex and Gender Information Value Date Recorded Sex Assigned at Not on file Legal Sex Female 12:17 PM CDT Gender Identity Not on file Sexual Orientation Not on file Last Filed Vital Signs Vital Sign Reading Time Taken Comments Blood Pressure 125/75 08/15/2024 3:00 PM PHYSICAL SCIENCE AIDE Pulse 90 08/15/2024 3:00 PM PHYSICAL SCIENCE AIDE Temperature - - Respiratory Rate - - Oxygen Saturation 98% 08/15/2024 3:00 PM PHYSICAL SCIENCE AIDE Inhaled Oxygen Concentration - - Weight 57.5 kg (126 lb 12.8 oz) 08/15/2024 3:00 PM PHYSICAL SCIENCE AIDE Height 157.5 cm (5' 2 ) 08/15/2024 3:00 PM PHYSICAL SCIENCE AIDE Body Mass Index 23.19 08/15/2024 3:00 PM PHYSICAL SCIENCE AIDE Plan of Treatment Not on file Procedures Procedure Name Priority Date/Time Associated Diagnosis Comments ECG 12-LEAD Routine 08/15/2024 3:03 PM PHYSICAL SCIENCE AIDE Syncope and collapse TRANSTHORACIC ECHO (TTE) COMPLETE W DOPPLER/CF WO CONTRAST Routine 07/25/2024 3:41 PM PHYSICAL SCIENCE AIDE Syncope and collapse ECG 12-LEAD Routine 07/04/2024 11:36 AM CDT Syncope and collapse POCT LIPID PANEL Routine 07/04/2024 10:4 2 AM CDT Lipid screening from Last 3 Months Results * ECG 12 lead (08/15/2024 3:03 PM PHYSICAL SCIENCE AIDE) us Jena Stout MD ECG ORDERABLES Edited Result - Final * TRANSTHORACIC ECHO (TTE) COMPLETE W DOPPLER/CF WO CONTRAST (07/25/2024 3:41 PM PHYSICAL SCIENCE AIDE) Anatomical Region Laterality Modality Ultrasound 07/25/2024 3:11 PM PHYSICAL SCIENCE AIDE Narrative 07/25/2024 5:23 PM PHYSICAL SCIENCE AIDE [facility] Medical Group Cardiology [facility], [address], [place] [address] P:[phone] P:[phone] Echocardiographic Report Patient Name: CRISTIAN GILBERT : [...] FINDINGS: Interpretation Site: Exam was interpreted at [facility]. Left Ventricle: Normal left ventricular systolic function. [...] Signed By: Sin Arthur MD 2024-07-25 17:22:36 PHYSICAL SCIENCE AIDE Procedure Note Sin Arthur MD - 07/25/2024 [facility] Medical [facility] Cardiology [facility] [facility], [address], [place] [address] P:[phone] P:[phone] Echocardiographic Report Patient Name: CRISTIAN GILBERT : [...] FINDINGS: Interpretation Site: Exam was interpreted at [facility]. Left Ventricle: Normal left ventricular systolic function. [...] Signed By: Sin Arthur MD 2024-07-25 17:22:36 PHYSICAL SCIENCE AIDE Delmar Gracia MD CV ECHO PROCEDURES Final [...] Final Result from Last 3 Months Insurance [facility] Care Teams Notary Public Relationship Specialty Start Date End Date Terrie Forde, PEANUT GRADER [address] [place] [address] PCP - General Family Medicine 06/05/24
== END 2024-09-27 12:03 | disposition home or self-care (01) ==
LOC: ANHLAB 12:03
PROVIDERS: PCP Nurse Practitioner Family; Visit Provider Nurse Practitioner Family
DX: T78.40XA Allergy, unspecified, initial encounter (principal); B37.31 Acute candidiasis of vulva and vagina; R73.01 Impaired fasting glucose
CPT/HCPCS: 36415; 82785; 83036; 86003

== ENCOUNTER 2024-10-29 18:25 | Emergency (ER) | payer OTHER, SELFPAY ==
[2024-10-29 18:58] VITALS: PULSE 82; RESP 16; TEMP 36.4; O2SAT 100
--- NOTE | 2024-10-29 19:09 | ED_ITS ---
HPI - Skin/Abscess/Foreign Bdy General Chief complaint: Skin/Abscess/Foreign Body Stated complaint: RASH Time Seen by Provider: 10/29/24 19:09 Source: patient Mode of arrival: ambulatory Limitations: no limitations History of Present Illness HPI narrative: 24 yo F presents with itchy rash to earlobes and around ears. Concerned for alllergic reaction but reports no new products or foods. Also reports increased dizziness. hx of POTS. Started on metoprolol but is concerned thats what is causing dizziness. Did not take metoprolol today. Wants BP checked. All systems reviewed and negative except as noted above. Related Data Home Medications ?Medication ?Instructions ?Recorded ?Confirmed ?Last Taken ?Type metoprolol succinate 25 mg mg PO 10/29/24 Unknown History tablet,extended release 24 hr Allergies Allergy/AdvReac Type Severity Reaction Status Date / Time No Known Allergies Allergy Verified 10/29/24 19:08 Review of Systems Review of Systems: CONSTITUTIONAL: Denies fever, chills, or sweats. EYES: Denies visual changes, redness, or discharge. ENT: Denies rhinorrhea, congestion, sore throat, or otalgia. CARDIOVASCULAR: Denies chest pain, palpitations, or edema. RESPIRATORY: Denies cough or dyspnea. GASTROINTESTINAL: Denies abdominal pain, nausea, vomiting, or diarrhea. GENITOURINARY: Denies dysuria or hematuria. SKIN: Reports rash and itching. MUSCULOSKELETAL: Denies back pain, joint pain, or myalgia. NEUROLOGIC: Denies headache, numbness, or weakness. Reports dizziness. PSYCHIATRIC: Denies anxiety or depression. All other systems reviewed are negative, except as documented in HPI. [facility] Past Medical History Medical History ADHD Anxiety and depression History of blood clotting disorder IUD surveillance removed 07/02/2023 Suppression of menses Urinary tract infection Family History Family History Other No pertinent family history Social History Social History Years smoked: 2 Smoking status: Former smoker Alcohol intake: former Substance use: never Do You Feel Safe in your Home?: Yes Lack of Transportation: No Lack of Food: Never True Current Housing: I Have Housing Concerned About Future Housing: No Difficulty Paying Gas/Electric Bills: No Difficulty Paying for Meds: No Currently Unemployed: No Education: High School Diploma/GED Difficulty w/ Childcare or Family Care: No Living arrangements: with family 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 There is no relevant family history pertinent to the presenting complaint. Exam Narrative: GENERAL: This is a well-nourished, well-developed patient, in no apparent distress. HEAD: normocephalic, atraumatic. EYES: PERRL. Sclera clear/white. Vision is grossly intact. EARS: Very fine erythematous macular papular rash to bilateral ear tragus without swelling, tenderness or warmth., auditory canals clear and without drainage, TMs normal without perforation. Hearing grossly intact. NOSE: External nose normal with no obvious nasal discharge, nares without r edness, no rhinorrhea. THROAT: Mucous membranes moist, posterior pharynx clear. NECK: Neck supple, non-tender without lymphadenopathy, masses or thyromegaly. CARDIOVASCULAR: Regular rate and rhythm without murmurs, gallops, or rubs. RESPIRATORY: Clear to auscultation. Breath sounds equal bilaterally. No wheezes, rales, or rhonchi. SKIN: warm, Dry, intact with no suspicious lesions or rash, good texture and turgor. NEURO: awake, alert, and oriented to person, place and time. There were no obvious focal neurologic abnormalities. EXTREMITIES: No joint tenderness, effusion, or edema noted. Course Course Level of Care: Express Care Visit Vital Signs Vital signs: Vital Signs Temperature 36.4 C L 10/29/24 18:58 Pulse Rate 82 10/29/24 18:58 Respiratory Rate 16 10/29/24 18:58 Pulse Oximetry 100 10/29/24 18:58 Temperature 36.4 C L 10/29/24 18:58 Pulse Rate 108 H 10/29/24 19:39 Respiratory Rate 16 10/29/24 18:58 Blood Pressure 118/74 10/29/24 19:39 Pulse Oximetry 100 10/29/24 18:58 Reviewed MDM - Skin/Abscess/Foreign Bdy MDM Narrative Medical decision making narrative: Will treat patient for possible allergic reaction with Medrol Dosepak. Patient agrees with plan of care. Her orthostatic vital signs were normal today. Recom mend she call her curriculum development manager to further discuss her symptoms and her concern that metoprolol is worsening her POTS symptoms. Please be advised this is a medical document. It is intended for [id number] communication. It is written in medical language and may contain unfamiliar abbreviations or verbiage. Medical documents are intended to carry relevant information, facts as evident, and the clinical opinion of the practitioner at the time of the encounter. This report may have been done utilizing a voice recognition system. Attempts have been made to correct errors. However, there may be uncorrected grammatical, spelling, and recognition errors present. The file time of this note does not necessarily represent the time of service. Discharge Plan Discharge Clinical Impression: Contact dermatitis, Postural orthostatic tachycardia syndrome [POTS], Blood pressure check Patient Disposition: Home, Self-Care Condition: Stable Instructions: Contact Dermatitis (ED) Additional Instructions: Take Medrol Dosepak as directed on packaging. Your orthostatic vital signs were normal today. Take beta-[place] daily. If you continue to have worsening of your POTS symptoms follow-up with your curriculum development manager. If you have chest pain, shortness of breath go to the ER. Patient Language: Romanian Prescriptions: New methylprednisolone [Medrol (Aquiles)] 4 mg tablets,dose pack See Rx Instructions PO .COMPLEX Qty: 21 0RF Rx Instructions: orally per package directions No Action metoprolol succinate 25 mg tablet extended release 24 hr PO sertraline 150 mg capsule 150 mg PO DAILY Qty: 90 1RF trazodone 50 mg tablet 50 mg PO QHS PRN (Reason: insomnia) Qty: 30 2RF aripiprazole [Abilify] 20 mg tablet 20 mg PO DAILY Qty: 90 2RF dextroamphetamine-amphetamine [Adderall XR] 10 mg capsule,extended release 24hr 10 mg PO DAILY Qty: 30 0RF dextroamphetamine-amphetamine [Adderall] 12.5 mg tablet 12.5 mg PO DAILY Qty: 30 0RF Rx Instructions: take in the afternoon if needed Follow-up/Referrals: Terrie Forde, [employer]ING SUPERVISOR-C [Primary Care Provider] - Time of Disposition: 19:46
[2024-10-29 19:32] VITALS: BP 122/78; PULSE 92
[2024-10-29 19:34] VITALS: BP 126/76; PULSE 78
[2024-10-29 19:39] VITALS: BP 118/74; PULSE 108
== END 2024-10-29 19:54 | disposition home or self-care (01) ==
PROVIDERS: Emergency Provider Nurse Practitioner Family; PCP Nurse Practitioner Family
DX: L25.9 Unspecified contact dermatitis, unspecified cause (principal); G90.A Postural orthostatic tachycardia syndrome [POTS]; Z01.30 Encounter for examination of blood pressure without abnormal findings; Z87.891 Personal history of nicotine dependence; F90.9 Attention-deficit hyperactivity disorder, unspecified type; F41.9 Anxiety disorder, unspecified; F32.A Depression, unspecified
CPT/HCPCS: 99213; G0463

== ENCOUNTER 2025-03-18 14:04 | Outpatient (CLI) | payer OTHER, SELFPAY ==
--- OUTSIDE RECORDS SUMMARY | 2025-03-18 14:17 | XMS_ITS | Encounter Summary ---
Author Organization [facility] Address [address] [place] [address] Care Team Providers Care Delivery Manager Name Role Phone KarelyTerrie ramon Deena HAND ALTERATIONS TAILOR Primary Care Provider [phone] Reason for Referral * Medication Prior Authorization - Closed Specialty Diagnoses / Procedures Referred By Philip reid Referred To Contact Diagnoses Hyperemesis gravidarum ([facility]/HCC) Timoteo Shoemaker MD [address] [place] [address] Phone: tel: fax: Referral ID Status Reason Start Date Expiration Date Visits Re quested Visits Authorized [id number] Closed 1 1 Reason for Visit * Reason Comments Vomiting preg Complications Encounter Details Date Type Department Care Team (Late st Contact Info) Description 03/16/2025 5:54 PM CDT - 03/16/2025 8:16 PM CDT Emergency [facility] Emergency Room [address] [place] [address] Lisa Sifuentes MD [address] [place] [address] Vomiting (preg); Complications Discharge Disposition: Home or Self Care (Routine Discharge) Social History Tobacco Use Types Packs/Day Years Used Date Smoking Tobacco: Former Cigarettes Smokeless Tobacco: Never Alcohol Use Standard Drinks/Week Comments Not Currently 0 (1 standard drink = 0.6 oz pur e alcohol) social Estimated Date of Delivery Comme nts Yes 10/30/2025 Sex and Gender Information Value Date Recorded Sex Assigned at Female 10/31/2024 7:30 PM COLORS CUSTODIAN Legal Sex Female 7:07 PM COLORS CUSTODIAN Gender Identity Female 03/14/2025 9:18 PM CDT Sexual Orientation Straight 03/14/2025 9: 18 PM CDT documented as of this encounter Last Filed Vital Signs Vital Sign Reading Time Taken Comments Blood Pressure 117/71 03/16/2025 5:51 PM CDT Pulse 91 03/16/2025 5:51 PM CDT Temperature 36.2 C (97.2 F) 03/16/2025 5:51 PM CDT Respiratory Rate 18 03/16/2025 5:51 PM CDT Oxygen Saturation 99% 03/16/2025 5:51 PM CDT Inhaled Oxygen Concentration - - Weight 64 kg (141 lb 1.5 oz) 03/16/2025 5:51 PM CDT Height 161.3 cm (5' 3.5) 03/16/2025 5:51 PM CDT Body Mass Index 24.6 03/16/2025 5:51 PM CDT documented in this encounter Functional Status * Calculated C-SSRS Risk Score (Lifetime/Recent) Answer Date of Assessment Author Status No Risk Indicated 03/16/2025 5:48 PM CDT Sona Burger RN Active * [place] Suicide Severity Rating Scale (Screener/Recent Self-Report) Question Answer Date of Assessment Author Status 1. Wish to be (Past 1 Month) No 03/16/2025 5:48 PM CDT Anahi Burger RN Ac tive 2. Non-Specific Active Suicidal Thoughts (Past 1 Month) No 03/16/2025 5:48 PM CDT Anahi Burger RN Ac tive 6. Suicidal Behavior (Lifetime) No 03/16/2025 5:48 PM CDT Anahi Burger RN Ac tive documented as of this encounter Discharge Instructions * Discharge Instructions* Timoteo Shoemaker MD - 03/16/2025 8:10 PM CDT Your symptoms seem to improve while you are here. Your blood work is overall reassuring. We will trial Diclegis which is vitamin B6, which can often help with your symptoms. Please pick this up from your pharmacy. If you have worsening symptoms, please come back to the manage department. At that point, we may end up admitting you to the hospital for further fluids and treatment. * Attachments The following attachments cannot be sent through Care Everywhere. * Hyperemesis gravidarum (Swedish) documented in this encounter Medications at Time of Discharge doxylamine-pyridoxi ne EC (DICLEGIS) 10-10 MG tabletIndications:H yperemesis gravidarum ([facility]) Take two tablets by mouth at bedtime on day 1 and 2. If symptoms persist, take 1 tablet by mouth in morning and 2 tablets by mouth at bedtime on day 3. If symptoms persist, take 1 tablet by mouth in morning, 1 tablet by mouth mid-afternoon, and 2 tablets by mouth at bedtime on day 4. Maximum dose: doxylamine 40 mg/pyridoxine 40 mg (4 tablets) per day. 15 tablet 03/16/2025 amitriptyline (ELAVIL) 10 MG tablet Take 3 tablets (30 mg total) by mouth nightly at bedtime. amphetamine-dextroa mphetamine (ADDERALL) 20 MG tablet Take 1 tablet (20 mg total) by mouth daily. Aripiprazole 20 MG Tab Take 1 tablet by mouth daily. ondansetron (ZOFRAN) 4 MG tablet Take 1 tablet (4 mg total) by mouth every 8 (eight) hours as needed for Nausea. 12 tablet 10/31/2024 ondansetron (ZOFRAN-ODT) 4 MG disintegrating tablet Take 1 tablet (4 mg total) by mouth every 8 (eight) hours as needed for Nausea. 20 tablet 01/17/2025 prochlorperazine (COMPAZINE) 10 MG tablet Take 1 tablet (10 mg total) by mouth every 8 (eight) hours as needed (Last line for nausea and vomiting in ). 30 tablet 1 03/15/2025 sertraline (ZOLOFT) 100 MG tablet Take 1.5 tablets (150 mg total) by mouth daily. documented as of this encounter ED Notes * Timoteo Shoemaker MD - 03/16/2025 7:13 PM CDT Emergency Department Assumed Care Note Patient signed out to me by Dr. Sifuentes @ 7 PM shift change. Briefly, Tyree Gilbert is a 25-year-old female is being evaluated for vomiting in Vitals: 03/16/25 1751 BP: 117/71 Pulse: 91 Resp: 18 Temp: 97.2 ??F (36.2 ??C) SpO2: 99% Thus far, studies reveal: CBC and CMP with no acute findings. Lipase negative Pending studies include: UA Plan from sign out is: Reassess, awaiting UA results Progress notes: UA with no evidence UTI, some ketosis noted. Upon reassessment, patient reports no nausea/vomiting, was eating chips with no symptoms. Patient requesting to go home. Patient has trialed Compazine, Reglan, Zofran at home. Will trial Diclegis in this patient as well, Rx given to patient. Patient agreeable. Discussed follow-up with CARVING MACHINE OPERATOR and return to the emergency room if worsening or persistent symptoms, patient verbalized understanding. No results found for this visit on 03/16/25. Labs Reviewed CBC W/DIFF AUTOMATED - Abnormal; Notable for the following components: Result Value MCHC 34.4 (*) NEUTROPHILS % 74.6 (*) ABS. NEUTROPHILS 6.37 (*) All other components within normal limits COMPREHENSIVE METABOLIC PANEL - Abnormal; Notable for the following components: SODIUM S/P/B 134 (*) All other components within normal limits URINALYSIS, AUTO, COMPLETE - Abnormal; Notable for the following components: PROTEIN RANDOM (U) TRACE (*) GLUCOSE (U) 1+ (*) KETONES MG/DL (U) 3+ (*) All other components within normal limits LIPASE AMYLASE No orders to display Medical Decision Making Amount and/or Complexity of Data Reviewed Labs: ordered. Medications dextrose 5 %-sodium chloride 0.9 % infusion (0 mLs Intravenous Infusion Stop Time 03/16/252010) prochlorperazine (COMPAZINE) injection 10 mg (10 mg Intravenous Given 03/16/251825) Discharge Medication List as of 03/16/2025 8:11 PM START taking these medications Details doxylamine-pyridoxine EC (DICLEGIS) 10-10 MG tablet Take two tablets by mouth at bedtime on day 1 and 2. If symptoms persist, take 1 tablet by mouth in morning and 2 tablets by mouth at bedtime on day 3. If symptoms persist, take 1 tablet by mouth in morning, 1 tablet by mouth mid-afternoon, and 2 tablets by mouth at bedtime on day 4. Maximum dose: doxylamine 40 mg/pyridoxine 40 mg (4 tablets) per day., Eprescribe Clinical impression: SNOMED CT(R) 1. Hyperemesis gravidarum ([facility]) HYPEREMESIS GRAVIDARUM Disposition: Discharge TIMOTEO SHOEMAKER MD 03/16/2025 Timoteo Shoemaker MD 03/16/252021 * Lisa Sifuentes MD - 03/16/2025 6:19 PM CDT ED NOTE Chief Complaint Chief Complaint Patient presents with Vomiting preg Complications History of Present Illness Vomiting Associated symptoms: no abdominal pain, no chills, no cough, no diarrhea, no fever and no headaches Patient is a 25-year-old G3, P2 SAB 0 who presents to the emergency room with a complaint of nauseaand vomiting. Patient states she was here last week for the same. Patient's CARVING MACHINE OPERATOR is at [place]. Patient states the last time she was here she had some cramping and bleeding during that time but this time small amount of cramping but no bleeding. Patient states she has vomited 17 times today. She states she is even vomiting when she has not eaten anything. Patient is without any fever or chillsno dysuria urgency or frequency. Denies any back pain. Patient comes to the emergency room by way of private vehicle and appears to be in no apparent distress respiratory or otherwise. Medical History ALLERGIES: Review of patient's allergies indicates: No Known Allergies MEDICATIONS: Prior to Admission medications Medication Sig Start Date End Date Taking? Authorizing Provider doxylamine-pyridoxine EC (DICLEGIS) 10-10 MG tablet Take two tablets by mouth at bedtime on day 1 and 2. If symptoms persist, take 1 tablet by mouth in morning and 2 tablets by mouth at bedtime on day 3. If symptoms persist, take 1 tablet by mouth in morning, 1 tablet by mouth mid-afternoon, and 2 tablets by mouth at bedtime on day 4. Maximum dose: doxylamine 40 mg/pyridoxine 40 mg (4 tablets) per day. 03/16/25 Yes Timoteo Shoemaker MD amitriptyline (ELAVIL) 10 MG tablet Take 3 tablets (30 mg total) by mouth nightly at bedtime. Default History Genericprovider amphetamine-dextroamphetamine (ADDERALL) 20 MG tablet Take 1 tablet (20 mg total) by mouth daily. Default History Genericprovider Aripiprazole 20 MG Tab Take 1 tablet by mouth daily. Default History Genericprovider ondansetron (ZOFRAN) 4 MG tablet Take 1 tablet (4 mg total) by mouth every 8 (eight) hours as needed for Nausea. 10/31/24 Verenice Luna MD ondansetron (ZOFRAN-ODT) 4 MG disintegrating tablet Take 1 tablet (4 mg total) by mouth every 8 (eight) hours as needed for Nausea. 01/17/25 Donna Luu MD prochlorperazine (COMPAZINE) 10 MG tablet Take 1 tablet (10 mg total) by mouth every 8 (eight) hours as needed (Last line for nausea and vomiting in ). 03/15/25 04/04/25 Dequan Mae MD sertraline (ZOLOFT) 100 MG tablet Take 1.5 tablets (150 mg total) by mouth daily. Default History Genericprovider PAST MEDICAL HISTORY: Past Medical History[1] PAST SURGICAL HISTORY: Past Surgical History[2] FAMILY HISTORY: Family History[3] SOCIAL HISTORY: Social History[4] Review of Systems Review of Systems Constitutional: Negative for chills and fever. Respiratory: Negative for cough and shortness of breath. Cardiovascular: Negative for chest pain. Gastrointestinal: Positive for nausea and vomiting. Negative for abdominal pain and diarrhea. Genitourinary: Negative for dysuria, frequency and urgency. Neurological: Negative for dizziness, weakness and headaches. All other systems reviewed and are negative. Physical Exam Filed Vitals: 03/16/25 1751 BP: 117/71 Pulse: 91 Resp: 18 Temp: 97.2 ??F (36.2 ??C) TempSrc: Temporal SpO2: 99% Weight: 64 kg (141 lb 1.5 oz) Height: 1.613 m (5' 3.5) Physical Exam Vitals and nursing note reviewed. Constitutional: General: She is not in acute distress. Appearance: Normal appearance. She is not ill-appearing, toxic-appearing or diaphoretic. HENT: Mouth/Throat: Mouth: Mucous membranes are moist. Neck: Vascular: No carotid bruit. Cardiovascular: Rate and Rhythm: Normal rate and regular rhythm. Pulses: Normal pulses. Heart sounds: Normal heart sounds. Pulmonary: Effort: Pulmonary effort is normal. No respiratory distress. Breath sounds: Normal breath sounds. No stridor. No wheezing, rhonchi or rales. Chest: Chest wall: No tenderness. Abdominal: General: Abdomen is flat. Bowel sounds are normal. There is no distension. Palpations: There is no mass. Tenderness: There is no abdominal tenderness. There is no right CVA tenderness, left CVA tenderness, guarding or rebound. Hernia: No hernia is present. Musculoskeletal: General: No swelling, tenderness, deformity or signs of injury. Normal range of motion. Cervical back: Normal range of motion and neck supple. No rigidity or tenderness. Right lower leg: No edema. Left lower leg: No edema. Lymphadenopathy: Cervical: No cervical adenopathy. Skin: General: Skin is warm and dry. Capillary Refill: Capillary refill takes less than 2 seconds. Coloration: Skin is not jaundiced or pale. Findings: No bruising, erythema, lesion or rash. Neurological: General: No focal deficit present. Mental Status: She is alert and oriented to person, place, and time. Motor: No weakness. Psychiatric: Mood and Affect: Mood normal. Thought Content: Thought content normal. Diagnostic Studies / Procedures ELECTROCARDIOGRAMS: No results found for this visit on 03/16/25. LABORATORY STUDIES: Results for orders placed or performed during the hospital encounter of 03/16/25 CBC W/DIFF AUTOMATED Result Value Ref Range WBC 8.54 4.4 - 11.0 x10'3/uL RBC 4.54 4.50 - 5.10 x10'6/uL HGB 13.3 12.3 - 15.3 G/DL HCT 38.7 35.9 - 44.6 % MCV 85.2 80.0 - 96.0 FL MCH 29.3 25.3 - 30.9 PG MCHC 34.4 (H) 31.0 - 34.1 G/DL RDW 13.2 12.4 - 15.1 % PLT 254 151 - 353 x10'3/uL MPV 9.9 9.6 - 12.0 FL RBC MORPHOLOGY NORMAL PLT MORPH. NORMAL WBC MORPHOLOGY NORMAL LYMPHOCYTES % 17.4 15.8 - 45.0 % NEUTROPHILS % 74.6 (H) 42.1 - 71.9 % MONOCYTES % 6.6 5.7 - 12.5 % EOSINOPHILS 0.8 0.0 - 5.6 % BASOPHILS 0.4 0.0 - 1.3 % ABS. NEUTROPHILS 6.37 (H) 1.40 - 6.00 x10'3/uL IMMATURE GRANS % 0.2 0.0 - 0.5 % ABS. LYMPHOCYTES 1.49 0.80 - 4.70 x10'3/uL COMPREHENSIVE METABOLIC PANEL Result Value Ref Range GLUCOSE 86 70 - 99 MG/DL BUN 10 7 - 18 MG/DL CREATININE S/P/B 0.65 0.55 - 1.02 MG/DL SODIUM S/P/B 134 (L) 136 - 145 MMOL/L POTASSIUM S/P/B 3.7 3.5 - 5.1 MMOL/L CHLORIDE S/P/B 100 100 - 108 MMOL/L CO2 25.0 21 - 32 MMOL/L CALCIUM S/P/B 8.6 8.5 - 10.1 MG/DL BILIRUBIN TOTAL S/P/B 1.0 0.2 - 1.2 MG/DL TOTAL PROTEIN S/P/B 7.0 6.4 - 8.2 G/DL ALBUMIN S/P/B 3.5 3.4 - 5.0 G/DL AST 17 15 - 37 U/L ALT 20 14 - 55 U/L ALKALINE PHOSPHATASE S/P/B 59 50 - 136 U/L ANION GAP 9.0 5 - 15 MMOL/L BUN CREATININE RATIO 15.4 6 - 26 A/G RATIO 1.0 1.0 - 2.0 RATIO GFR ESTIMATE >90 >90 ML/MIN/1.73 M2 LIPASE Result Value Ref Range LIPASE 28 16 - 77 UNITS/L AMYLASE Result Value Ref Range AMYLASE S/P/B 52 25 - 115 UNITS/L URINALYSIS, AUTO, COMPLETE Result Value Ref Range COLOR (U) YELLOW TRANSPARENCY CLEAR SPECIFIC GRAVITY (U) 1.020 1.000 - 1.030 U PH 6.5 5.0 - 9.0 LEUKOCYTES (U) NEGATIVE NEGATIVE NITRITES NEGATIVE NEGATIVE PROTEIN RANDOM (U) TRACE (A) NEGATIVE GLUCOSE (U) 1+ (A) NEGATIVE KETONES MG/DL (U) 3+ (A) NEGATIVE BILIRUBIN (U) NEGATIVE NEGATIVE BLOOD (U) NEGATIVE NEGATIVE WBC/HPF NONE SEEN 0 - 5 /HPF RBC/HPF NONE SEEN 0 - 5 /HPF EPI/HPF FEW /HPF IMAGING STUDIES No orders to display ED Course / Medical Decision Making MDM Number of Diagnoses or Management Options Hyperemesis gravidarum (HHS/HCC) Diagnosis management comments: Rule out hyperemesis gravidarum dehydration electrolyte abnormality UTI or pyelonephritis. Amount and/or Complexity of Data Reviewed Independent visualization of images, tracings, or specimens: yes Risk of Complications, Morbidity, and/or Mortality Presenting problems: moderate Diagnostic procedures: moderate Management options: moderate Patient signed out to the oncoming physician Dr. Shoemaker Medications dextrose 5 %-sodium chloride 0.9 % infusion (0 mLs Intravenous Infusion Stop Time 03/16/252010) prochlorperazine (COMPAZINE) injection 10 mg (10 mg Intravenous Given 03/16/251825) Clinical Impression Hyperemesis gravidarum (HHS/HCC) (Primary) Disposition: Discharge Discharge Medication List as of 03/16/2025 8:11 PM START taking these medications Details doxylamine-pyridoxine EC (DICLEGIS) 10-10 MG tablet Take two tablets by mouth at bedtime on day 1 and 2. If symptoms persist, take 1 tablet by mouth in morning and 2 tablets by mouth at bedtime on day 3. If symptoms persist, take 1 tablet by mouth in morning, 1 tablet by mouth mid-afternoon, and 2 tablets by mouth at bedtime on day 4. Maximum dose: doxylamine 40 mg/pyridoxine 40 mg (4 tablets) per day., Eprescribe Class: Eprescribe Pharmacy: [facility]/pharmacy #[id number] [facility] [address] (Ph #: [phone]) Follow-up: Terrie Forde NP [address] [facility] [address] Schedule an appointment as soon as possible for a visit [facility] Emergency Room [address] [address] [facility] [address] Go to If symptoms worsen Your OBGYN Lisa Sifuentes MD 03/17/2025 06:57 [1] Past Medical History: Diagnosis Date ADHD Anxiety disorder, unspecified Depression POTS (postural orthostatic tachycardia syndrome) Schizophrenia ([facility]/HCC [facility]/HCC) [2] Past Surgical History: Procedure Laterality Date TOOTH EXTRACTION Bilateral 2019 x4 [3] No family history on file. [4] Social History Tobacco Use Smoking status: Former Types: Cigarettes Smokeless tobacco: Never Vaping Use Vaping status: Never Used Substance Use Topics Alcohol use: Not Currently Comment: social Drug use: Never Lisa Sifuentes MD 03/17/25 0657 * Anahi Burger RN - 03/16/2025 5:48 PM CDT Patient to ED c/o vomiting for 2 weeks. Patient is 7 weeks . She called her OB at [place] who encouraged her to be seen at the ED for fluids. Patient reports she is not keeping anything downorally. Patient reports 17 episodes of emesis since midnight. Patient reports she has tried zofran reglan and compazine without help. No other c/o at this time. documented in this encounter Plan of Treatment Not on file documented as of this encounter Procedures Procedure Name Priority Date/Time Associated Diagnosis Comments URINALYSIS, AUTO, COMPLETE STAT 03/16/2025 7:30 PM CDT COMPREHENSIVE METABOLIC PANEL STAT 03/16/2025 6:07 PM CDT CBC W/DIFF AUTOMATED STAT 03/16/2025 6:07 PM CDT AMYLASE STAT 03/16/2025 6:07 PM CDT LIPASE STAT 03/16/2025 6:07 PM CDT documented in this encounter Results * (ABNORMAL) URINALYSIS, AUTO, COMPLETE (03/16/2025 7:30 PM CDT) COLOR (U) YELLOW 03/16/2025 7:52 PM CDT [facility] TRANSPARENCY CLEAR 03/16/2025 7:52 PM CDT [facility] SPECIFIC GRAVITY (U) 1.020 1.000 - 1.030 03/16/2025 7:52 PM CDT [facility] U PH 6.5 5.0 - 9.0 03/16/2025 7:52 PM CDT [facility] LEUKOCYTES (U) NEGATIVE NEGATIVE 03/16/2025 7:52 PM CDT [facility] NITRITES NEGATIVE NEGATIVE 03/16/2025 7:52 PM CDT [facility] PROTEIN RANDOM (U) TRACE(A) NEGATIVE 03/16/2025 7:52 PM CDT [facility] GLUCOSE (U) 1+(A) NEGATIVE 03/16/2025 7:52 PM CDT [facility] KETONES MG/DL (U) 3+(A) NEGATIVE 03/16/2025 7:52 PM CDT [facility] BILIRUBIN (U) NEGATIVE NEGATIVE 03/16/2025 7:52 PM CDT [facility] BLOOD (U) NEGATIVE NEGATIVE 03/16/2025 7:52 PM CDT [facility] WBC/HPF NONE SEEN 0 - 5 /HPF 03/16/2025 7:52 PM CDT [facility] RBC/HPF NONE SEEN 0 - 5 /HPF 03/16/2025 7:52 PM CDT [facility] EPI/HPF FEW /HPF 03/16/2025 7:52 PM CDT [facility] URINE SPECIMEN OBTAINED BY CLEAN CATCH PROCEDURE / Unknown 03/16/2025 7:30 PM CDT us Lisa Sifuentes MD URINE ORDERABLES Final Result Performing Organization Address [facility] Co de Phone Number [facility] [address] [place] [address], [place] [phone] * AMYLASE (03/16/2025 6:07 PM CDT) AMYLASE S/P/B 52 25 - 115 UNITS/L 03/16/2025 6:40 PM CDT [facility] 03/16/2025 6:07 PM CDT us Lisa Sifuentes MD LABORATORY Final Result Performing Organization Address [facility] Co de Phone Number [facility] [address] [place] [address], [place] [phone] * LIPASE (03/16/2025 6:07 PM CDT) LIPASE 28 16 - 77 UNITS/L 03/16/2025 6:40 PM CDT [facility] 03/16/2025 6:07 PM CDT us Lisa Sifuentes MD LABORATORY Final Result Performing Organization Address [facility] Co de Phone Number [facility] [address] [place] [address], [place] [phone] * (ABNORMAL) COMPREHENSIVE METABOLIC PANEL (03/16/2025 6:07 PM CDT) GLUCOSE 86 70 - 99 MG/DL 03/16/2025 6:40 PM CDT [facility] BUN 10 7 - 18 MG/DL 03/16/2025 6:40 PM T [facility] CREATININE S/P/B 0.65 0.55 - 1.02 MG/DL 03/16/2025 6:40 PM [facility] SODIUM S/P/B 134(L) 136 - 145 MMOL/L 03/16/2025 6:40 PM T [facility] POTASSIUM S/P/B 3.7 3.5 - 5.1 MMOL/L 03/16/2025 6:40 PM T [facility] CHLORIDE S/P/B 100 100 - 108 MMOL/L 03/16/2025 6:40 PM [facility] CO2 25.0 21 - 32 MMOL/L 03/16/2025 6:40 PM [facility] CALCIUM S/P/B 8.6 8.5 - 10.1 MG/DL 03/16/2025 6:40 PM [facility] BILIRUBIN TOTAL S/P/B 1.0 0.2 - 1.2 MG/DL 03/16/2025 6:40 PM [facility] TOTAL PROTEIN S/P/B 7.0 6.4 - 8.2 G/DL 03/16/2025 6:40 PM [facility] ALBUMIN S/P/B 3.5 3.4 - 5.0 G/DL 03/16/2025 6:40 PM [facility] AST 17 15 - 37 U/L 03/16/2025 6:40 PM [facility] ALT 20 14 - 55 U/L 03/16/2025 6:40 PM [facility] ALKALINE PHOSPHATASE S/P/B 59 50 - 136 U/L 03/16/2025 6:40 PM T [facility] ANION GAP 9.0 5 - 15 MMOL/L 03/16/2025 6:40 PM CDT [facility] BUN CREATININE RATIO 15.4 6 - 26 03/16/2025 6:40 PM CDT [facility] A/G RATIO 1.0 1.0 - 2.0 RATIO 03/16/2025 6:40 PM CDT [facility] GFR ESTIMATE >90 >90 ML/MIN/1.7 3 M2 03/16/2025 6:40 PM CDT [facility] Comment: NOTE: eGFR is not calculated for patients <18 years of age. This is an estimated GFR calculation using the new CKD EPI creatinine equation without race and so does not require a correction factor for race. This estimated GFR should not be used for calculating drug doses. 03/16/2025 6:07 PM CDT us Lisa Sifuentes MD LABORATORY Final Result [facility] [address] [place] [address], [place] [phone] * (ABNORMAL) CBC W/DIFF AUTOMATED (03/16/2025 6:07 PM CDT) WBC 8.54 4.4 - 11.0 x10'3/uL 03/16/2025 6:28 PM CDT [facility] RBC 4.54 4.50 - 5.10 x10'6/uL 03/16/2025 6:28 PM CDT [facility] HGB 13.3 12.3 - 15.3 G/DL 03/16/2025 6:28 PM CDT [facility] HCT 38.7 35.9 - 44.6 % 03/16/2025 6:28 PM CDT [facility] MCV 85.2 80.0 - 96.0 FL 03/16/2025 6:28 PM CDT [facility] MCH 29.3 25.3 - 30.9 PG 03/16/2025 6:28 PM CDT [facility] MCHC 34.4(H) 31.0 - 34.1 G/DL 03/16/2025 6:28 PM CDT [facility] RDW 13.2 12.4 - 15.1 % 03/16/2025 6:28 PM CDT [facility] PLT 254 151 - 353 x10'3/uL 03/16/2025 6:28 PM CDT [facility] MPV 9.9 9.6 - 12.0 FL 03/16/2025 6:28 PM CDT [facility] RBC MORPHOLOGY NORMAL 03/16/2025 6:28 PM T [facility] PLT MORPH. NORMAL 03/16/2025 6:28 PM T [facility] WBC MORPHOLOGY NORMAL 03/16/2025 6:28 PM T [facility] LYMPHOCYTES % 17.4 15.8 - 45.0 % 03/16/2025 6:28 PM T [facility] NEUTROPHILS % 74.6(H) 42.1 - 71.9 % 03/16/2025 6:28 PM CDT [facility] MONOCYTES % 6.6 5.7 - 12.5 % 03/16/2025 6:28 PM T [facility] EOSINOPHILS 0.8 0.0 - 5.6 % 03/16/2025 6:28 PM CDT [facility] BASOPHILS 0.4 0.0 - 1.3 % 03/16/2025 6:28 PM CDT [facility] ABS. NEUTROPHILS 6.37(H) 1.40 - 6.00 x10'3/uL 03/16/2025 6:28 PM CDT [facility] IMMATURE GRANS % 0.2 0.0 - 0.5 % 03/16/2025 6:28 PM CDT [facility] ABS. LYMPHOCYTES 1.49 0.80 - 4.70 x10'3/uL 03/16/2025 6:28 PM CDT [facility] 03/16/2025 6:07 PM CDT us Lisa Sifuentes MD LABORATORY Final Result [facility] [address] [place] [address], documented in this encounter Visit Diagnoses Diagnosis Hyperemesis gravidarum ([facility])- Primary Mild hyperemesis gravidarum, unspecified as to episode of care documented in this encounter Administered Medications Inactive Administered Medications - up to 3 most recent administrations Medication Order MAR Action Action Date Dose Rate Site dextrose 5 %-sodium chloride 0.9 % infusion at 500 mL/hr, Intravenous, Once, 1 dose, On Sun03/16/25 at 1830 New Bag 03/16/2025 6:31 PM CDT 500 mL/hr prochlorperazine (COMPAZINE) injection 10 mg 10 mg, Intravenous, Once, 1 dose, On Sun03/16/25 at 1830, If giving IV, administer diluted or undiluted by slow IV push at a maximum rate of 5 mg/minute. To reduce the risk of hypotension the patient must remain lying down and be observed for 30 minutes after receiving the medication. IM administration: Outer gluteal muscle Given 03/16/2025 6:26 PM CDT 10 mg documented in this encounter Active and Recently Administered Medications Times are shown in CDT. Scheduled Medication Order 03/14/2025 03/15/2025 03/16/2025 dextrose 5 %-sodium chloride 0.9 % infusion (COMPLETED) at 500 mL/hr, Intravenous, Once, 1 dose, On Sun03/16/25 at 1830 1831 (New Bag - Prov ider: Anahi Burger RN)2010 (Infusion Stop Time - Provider: Charlene Lott RN) prochlorperazine (COMPAZINE) injection 10 mg (COMPLETED) 10 mg, Intravenous, Once, 1 dose, On Sun03/16/25 at 1830, If giving IV, administer diluted or undiluted by slow IV push at a maximum rate of 5 mg/minute. To reduce the risk of hypotension the patient must remain lying down and be observed for 30 minutes after receiving the medication. IM administration: Outer gluteal muscle 1826 (Given - Provid er: Anahi Burger RN) documented in this encounter Care Teams Delivery Manager Relationship Specialty Start Date End Date Terrie Forde, GRACE [address] [place] [address] PCP - General Nurse Practitioner Family 10/31/24 documented as of this encounter
--- OUTSIDE RECORDS SUMMARY | 2025-03-18 14:17 | XMS_ITS | Clinical Summary ---
Author Organization [facility] Address [address] [place] [address] Care Team Providers Care Caser Up Name Role Phone KarelyTerrie ramon Deena ROLL CUTTER Primary Care Provider [phone]- [phone] Allergies No known active allergies Medications Aripiprazole 20 MG Tab Take 1 tablet by mouth daily. Active sertraline (ZOLOFT) 100 MG tablet Take 1.5 tablets (150 mg total) by mouth daily. Active ondansetron (ZOFRAN) 4 MG tablet Take 1 tablet (4 mg total) by mouth every 8 (eight) hours as needed for Nausea. 12 tablet 10/31/19 25 Active ondansetron (ZOFRAN-ODT) 4 MG disintegrating tablet Take 1 tablet (4 mg total) by mouth every 8 (eight) hours as needed for Nausea. 20 tablet 01/18/20 25 Active amphetamine-dextr oamphetamine (ADDERALL) 20 MG tablet Take 1 tablet (20 mg total) by mouth daily. Active amitriptyline (ELAVIL) 10 MG tablet Take 3 tablets (30 mg total) by mouth nightly at bedtime. Active prochlorperazine (COMPAZINE) 10 MG tablet Take 1 tablet (10 mg total) by mouth every 8 (eight) hours as needed (Last line for nausea and vomiting in ). 30 tablet 1 03/15/20 25 2024 Active doxylamine-pyrido xine EC (DICLEGIS) 10-10 MG tabletIndications :Hyperemesis gravidarum (HHS/HCC) Take two tablets by mouth at bedtime on day 1 and 2. If symptoms persist, take 1 tablet by mouth in morning and 2 tablets by mouth at bedtime on day 3. If symptoms persist, take 1 tablet by mouth in morning, 1 tablet by mouth mid-afternoon , and 2 tablets by mouth at bedtime on day 4. Maximum dose: doxylamine 40 mg/pyridoxine 40 mg (4 tablets) per day. 15 tablet 03/16/20 Active traZODone (DESYREL) 50 MG tablet Take 1 tablet (50 mg total) by mouth nightly at bedtime. 2024 Discontinued amphetamine-dextr oamphetamine XR (ADDERALL XR) 10 MG 24 hr capsule Take 1 capsule (10 mg total) by mouth every morning. 2024 Discontinued metoprolol succinate ER (TOPROL-XL) 25 MG 24 hr tablet Take 1 tablet (25 mg total) by mouth daily. 2024 Discontinued methylPREDNISolon e, RODNEY, (MEDROL DOSEPAK) 4 MG tablet Follow package directions 2024 Discontinued amphetamine-dextr oamphetamine (ADDERALL) 12.5 MG tablet 1 tablet (12.5 mg total). 10/20/19 25 2024 Discontinued Active Problems Problem Noted Date Diagnosed Date Syncope and collapse 07/04/2024 Estimated Date of Delivery Comme nts Yes 10/30/2025 Encounters Date Type Department Care Team Description 03/16/2025 5:54 PM CDT - 03/16/2025 8:16 PM CDT Emergency [facility] Emergency Room [address] [place] [id number] Lisa Sifuentes MD Vomiting (preg); Complications Discharge Disposition: Home or Self Care (Routine Discharge) 03/16/2025 Travel 03/14/2025 9:06 PM CDT - 03/15/2025 1:03 AM CDT Emergency [facility] Emergency Room [address] [place] [id number] Dequan Mae MD Vomiting Discharge Disposition: Home or Self Care (Routine Discharge) 03/14/2025 Travel 01/17/2025 7:00 PM CDT - 01/17/2025 7:56 PM CDT Emergency [facility] Emergency Room [address] [place] [address] Donna Luu MD Sore Throat Discharge Disposition: Home or Self Care (Routine Discharge) 01/17/2025 Travel from Last 3 Months Immunizations Immunization Administration Dates Next Due Tdap (Generic) 04/12/2024 Social History Tobacco Use Types Packs/Day Years Used Date Smoking Tobacco: Former Cigarettes Smokeless Tobacco: Never Tobacco Cessation:Counseling Given: Not Answered Alcohol Use Standard Drinks/Week Comments Not Currently 0 (1 standard drink = 0.6 oz pur e alcohol) social Estimated Date of Delivery Comme nts Yes 10/30/2025 Sex and Gender Information Value Date Recorded Sex Assigned at Female 10/31/2024 7:30 PM PLASTIC FIXTURE BUILDER Legal Sex Female 7:07 PM PLASTIC FIXTURE BUILDER Gender Identity Female 03/14/2025 9:18 PM CDT Sexual Orientation Straight 03/14/2025 9: 18 PM CDT Last Filed Vital Signs Vital Sign Reading [...] Mass Index 24.6 03/16/2025 5:51 PM CDT Plan of Treatment Health Maintenance Due Date Last Done Comments Cervical Cancer Screening Pa p Smear (Age 21 to 29) Every 3 Years 2002 Cervical Cancer Screening 2002 Annual Physical 2005 HPV Vaccines (1 - 3-dose series) 2017 Chlamydia Screening Females ages 16-24 2018 Meningococcal B Vaccine (1 o f 2 - Standard) 2018 Hepatitis C 2020 Hepatitis B Vaccines (1 of 3 - 19+ 3-dose series) 2021 COVID-19 Vaccine (1 - 2023-2 5 season) 2024 RSV Immunization or 60+ Years (1 - Risk 1-dose series) 09/04/2025 DTaP, Tdap and Td Vaccines ( 2 - Td or Tdap) 04/12/2034 04/12/2024 Meningococcal Vaccine Aged Out No kellen lexie eligible based on patient's age to complete this topic Pneumococcal Vaccine: Pediat rics (0 to 5 Years) and At-Risk Patients (6 to 49 Years) Aged Out No longer eligi ble based on patient's age to complete this topic RSV Immunizations Under 20 Months Aged Out No longer eligible based on patient's age to complete this topic Procedures Procedure Name Priority Date/Time Associated Diagnosis Comments URINALYSIS, AUTO, COMPLETE STAT 03/16/2025 7:30 PM CDT AMYLASE STAT 03/16/2025 6:07 PM CDT LIPASE STAT 03/16/2025 6:07 PM CDT COMPREHENSIVE METABOLIC PANEL STAT 03/16/2025 6:07 PM CDT CBC W/DIFF AUTOMATED STAT 03/16/2025 6:07 PM CDT URINALYSIS, AUTO, COMPLETE STAT 03/14/2025 11:59 PM CDT US OB <14WKS TA+TV STAT 03/14/2025 11 :02 PM CDT HC BLOOD TYPING ABO STAT 03/14/2025 9 :33 PM CDT HC HCG QN STAT 03/14/2025 9:27 PM CDT COMPREHENSIVE METABOLIC PANEL STAT 03/14/2025 9:12 PM CDT CBC W/DIFF AUTOMATED STAT 03/14/2025 9:12 PM CDT TEST URINE STAT 01/17/2025 7:19 PM CDT STREP A RAPID STAT 01/17/2025 7:08 PM CDT INFLUENZA A & B STAT 01/17/2025 7:08 PM CDT from Last 3 Months Results * (ABNORMAL) URINALYSIS, AUTO, COMPLETE (03/16/2025 7:30 PM CDT) Only the most recent of2 resultswithin the time period is included. COLOR (U) YELLOW 03/16/2025 7:52 PM CDT [facility] TRANSPARENCY CLEAR 03/16/2025 7:52 PM CDT [facility] SPECIFIC GRAVITY (U) 1.020 1.000 - 1.030 03/16/2025 7:52 PM CDT [facility] U PH 6.5 5.0 - 9.0 03/16/2025 7:52 PM CDT [facility] LEUKOCYTES (U) NEGATIVE NEGATIVE 03/16/2025 7:52 PM CDT [facility] NITRITES NEGATIVE NEGATIVE 03/16/2025 7:52 PM CDT [facility] PROTEIN RANDOM (U) TRACE(A) NEGATIVE 03/16/2025 7:52 PM CDT [facility] GLUCOSE (U) 1+(A) NEGATIVE 03/16/2025 7:52 PM CDT [facility] KETONES MG/DL (U) 3+(A) NEGATIVE 03/16/2025 7:52 PM CDT [facility] BILIRUBIN (U) NEGATIVE NEGATIVE 03/16/2025 7:52 PM CDT [facility] BLOOD (U) NEGATIVE NEGATIVE 03/16/2025 7:52 PM CDT [facility] WBC/HPF NONE SEEN 0 - 5 /HPF 03/16/2025 7:52 PM CDT [facility] RBC/HPF NONE SEEN 0 - 5 /HPF 03/16/2025 7:52 PM CDT [facility] EPI/HPF FEW /HPF 03/16/2025 7:52 PM CDT [facility] URINE SPECIMEN OBTAINED BY CLEAN CATCH PROCEDURE / Unknown 03/16/2025 7:30 PM CDT us Lisa Sifuentes MD URINE ORDERABLES Final Result [facility] [address] [place] [address], [place] [phone] * (ABNORMAL) COMPREHENSIVE METABOLIC PANEL (03/16/2025 6:07 PM CDT) Only the most recent of2 resultswithin the time period is included. GLUCOSE 86 70 - 99 MG/DL 03/16/2025 6:40 PM CDT [facility] BUN 10 7 - 18 MG/DL 03/16/2025 6:40 PM CDT [facility] CREATININE S/P/B 0.65 0.55 - 1.02 MG/DL 03/16/2025 6:40 PM CDT [facility] SODIUM S/P/B 134(L) 136 - 145 MMOL/L 03/16/2025 6:40 PM CDT [facility] POTASSIUM S/P/B 3.7 3.5 - 5.1 MMOL/L 03/16/2025 6:40 PM CDT [facility] CHLORIDE S/P/B 100 100 - 108 MMOL/L 03/16/2025 6:40 PM CDT [facility] CO2 25.0 21 - 32 MMOL/L 03/16/2025 6:40 PM [facility] CALCIUM S/P/B 8.6 8.5 - 10.1 MG/DL 03/16/2025 6:40 PM [facility] BILIRUBIN TOTAL S/P/B 1.0 0.2 - 1.2 MG/DL 03/16/2025 6:40 PM [facility] TOTAL PROTEIN S/P/B 7.0 6.4 - 8.2 G/DL 03/16/2025 6:40 PM [facility] ALBUMIN S/P/B 3.5 3.4 - 5.0 G/DL 03/16/2025 6:40 PM [facility] AST 17 15 - 37 U/L 03/16/2025 6:40 PM [facility] ALT 20 14 - 55 U/L 03/16/2025 6:40 PM [facility] ALKALINE PHOSPHATASE S/P/B 59 50 - 136 U/L 03/16/2025 6:40 PM [facility] ANION GAP 9.0 5 - 15 MMOL/L 03/16/2025 6:40 PM [facility] BUN CREATININE RATIO 15.4 6 - 26 03/16/2025 6:40 PM [facility] A/G RATIO 1.0 1.0 - 2.0 RATIO 03/16/2025 6:40 PM [facility] GFR ESTIMATE >90 >90 ML/MIN/1.7 3 M2 03/16/2025 6:40 PM [facility] Comment: NOTE: eGFR is not calculated for patients <18 years of age. This is an estimated GFR calculation using the new CKD EPI creatinine equation without race and so does not require a correction factor for race. This estimated GFR should not be used for calculating drug doses. 03/16/2025 6:07 PM CDT us Lisa Sifuentes MD LABORATORY Final Result [facility] [address] [place] [address], [place] [phone] * (ABNORMAL) CBC W/DIFF AUTOMATED (03/16/2025 6:07 PM CDT) Only the most recent of2 resultswithin the time period is included. WBC 8.54 4.4 - 11.0 x10'3/uL 03/16/2025 6:28 PM CDT [facility] RBC 4.54 4.50 - 5.10 x10'6/uL 03/16/2025 6:28 PM CDT [facility] HGB 13.3 12.3 - 15.3 G/DL 03/16/2025 6:28 PM CDT [facility] HCT 38.7 35.9 - 44.6 % 03/16/2025 6:28 PM CDT [facility] MCV 85.2 80.0 - 96.0 FL 03/16/2025 6:28 PM CDT [facility] MCH 29.3 25.3 - 30.9 PG 03/16/2025 6:28 PM CDT [facility] MCHC 34.4(H) 31.0 - 34.1 G/DL 03/16/2025 6:28 PM CDT [facility] RDW 13.2 12.4 - 15.1 % 03/16/2025 6:28 PM CDT [facility] PLT 254 151 - 353 x10'3/uL 03/16/2025 6:28 PM CDT [facility] MPV 9.9 9.6 - 12.0 FL 03/16/2025 6:28 PM CDT [facility] RBC MORPHOLOGY NORMAL 03/16/2025 6:28 PM CDT [facility] PLT MORPH. NORMAL 03/16/2025 6:28 PM CDT [facility] WBC MORPHOLOGY NORMAL 03/16/2025 6:28 PM CDT [facility] LYMPHOCYTES % 17.4 15.8 - 45.0 % 03/16/2025 6:28 PM CDT [facility] NEUTROPHILS % 74.6(H) 42.1 - 71.9 % 03/16/2025 6:28 PM CDT [facility] MONOCYTES % 6.6 5.7 - 12.5 % 03/16/2025 6:28 PM CDT [facility] EOSINOPHILS 0.8 0.0 - 5.6 % 03/16/2025 6:28 PM CDT [facility] BASOPHILS 0.4 0.0 - 1.3 % 03/16/2025 6:28 PM CDT [facility] ABS. NEUTROPHILS 6.37(H) 1.40 - 6.00 x10'3/uL 03/16/2025 6:28 PM CDT [facility] IMMATURE GRANS % 0.2 0.0 - 0.5 % 03/16/2025 6:28 PM CDT [facility] ABS. LYMPHOCYTES 1.49 0.80 - 4.70 x10'3/uL 03/16/2025 6:28 PM CDT [facility] 03/16/2025 6:07 PM CDT us Lisa Sifuentes MD LABORATORY Final Result [facility] [address] [place] [address], * AMYLASE (03/16/2025 6:07 PM CDT) AMYLASE S/P/B 52 25 - 115 UNITS/L 03/16/2025 6:40 PM CDT [facility] 03/16/2025 6:07 PM CDT us Lisa Sifuentes MD LABORATORY Final Result Performing Organization Address City/[facility]/ZIP Co de Phone Number [facility] [address] [place] [address], [place] [phone] * LIPASE (03/16/2025 6:07 PM CDT) LIPASE 28 16 - 77 UNITS/L 03/16/2025 6:40 PM CDT [facility] 03/16/2025 6:07 PM CDT us Lisa Sifuentes MD LABORATORY Final Result Performing Organization Address [facility] Co de Phone Number [facility] [address] [place] [address], [place] [phone] * US OB <14WKS TA+TV (03/14/2025 11:02 PM CDT) Anatomical Region Laterality Modality Ultrasound 03/14/2025 11:3 9 PM CDT Impressions 03/14/2025 11:48 PM CDT IMPRESSION: 1. Single viable intrauterine estimated to be 7 weeks 4 days with SERGIO 10/27/2025 +/- 2 weeks. 2. Small subchorionic hemorrhages to the right of the gestational sac and extending inferior to the gestational sac. 3. No free fluid in the cul-de-sac. Unremarkable ovaries with benign physiologic 1.8 x 1.5 cm cyst in the left ovary, for which no follow-up imaging is recommended. Referred By: Interpreted By: Naina Fofana MD, 03/14/2025 11:39 PM Narrative 03/14/2025 11:48 PM CDT [facility] [address] [place] [address] EXAM: US OB <14WKS TA+TV CLINICAL INFORMATION: Vaginal bleeding, pelvic cramping, hyperemesis gravidarum. Evaluate for viability and dates. LMP: 01/23/2025 with fetus estimated to be 7 weeks 1 day with SERGIO 10/30/2025. G3, P2. TECHNIQUE: Multiple transabdominal and transvaginal sonographic images of the OB pelvis were obtained. COMPARISON: None. FINDINGS: ? The uterus appears anteverted on the transabdominal images but is retroverted on the transvaginal images. Uterus measures 8.7 x 5.7 x 6.4 cm. The uterus is heterogeneous. There is a single viable intrauterine with heart rate 144 bpm. Clitherall-rump measurement is 12.49 cm corresponding to a 7 week 4 day with SERGIO 10/27/2025 +/- 2 weeks. This correlates fairly well with the dates from LMP. Yolk sac appears unremarkable. There is a small subchorionic hemorrhage to the right of the gestational sac measuring 1.3 x 0.3 x 0.9 cm and possibly extending inferior to the gestational sac measuring 0.7 x 0.4 x 1.6 cm inferior to the gestational sac. Right ovary measures 3.4 x 1.4 x 1.6 cm. Left ovary measures 3.4 x 2.1 x 2.4 cm. Normal color and Doppler blood flow to the ovaries without evidence of ovarian torsion. Dominant physiologic cyst in the left ovary measuring 1.8 x 1.5 x 1.4 cm. No free fluid is seen in the cul-de-sac. No suspicious adnexal mass is seen. ? Procedure Note Naina Fofana MD - 03/14/2025 [facility] [address] [place] [address] EXAM: US OB <14WKS TA+TV CLINICAL INFORMATION: Vaginal bleeding, pelvic cramping, hyperemesisgravidarum. Evaluate for viability and dates. LMP: 01/23/2025 withfetus estimated to be 7 weeks 1 day with SERGIO 10/30/2025. G3, P2. TECHNIQUE: Multiple transabdominal and transvaginal sonographic images ofthe OB pelvis were obtained. COMPARISON: None. FINDINGS: ? The uterus appears anteverted on the transabdominal images but isretroverted on the transvaginal images. Uterus measures 8.7 x 5.7 x 6.4cm. The uterus is heterogeneous. There is a single viable intrauterinepregnancy with heart rate 144 bpm. Clitherall-rump measurement is 12.49cm corresponding to a 7 week 4 day with SERGIO 10/27/2025 +/- 2weeks. This correlates fairly well with the dates from LMP. Yolk sacappears unremarkable. There is a small subchorionic hemorrhage to the right of the gestationalsac measuring 1.3 x 0.3 x 0.9 cm and possibly extending inferior to thegestational sac measuring 0.7 x 0.4 x 1.6 cm inferior to the gestationalsac. Right ovary measures 3.4 x 1.4 x 1.6 cm. Left ovary measures 3.4 x 2.1 x2.4 cm. Normal color and Doppler blood flow to the ovaries withoutevidence of ovarian torsion. Dominant physiologic cyst in the left ovarymeasuring 1.8 x 1.5 x 1.4 cm. No free fluid is seen in the cul-de-sac. No suspicious adnexal mass isseen. ? IMPRESSION: 1. Single viable intrauterine estimated to be 7 weeks 4 dayswith SERGIO 10/27/2025 +/- 2 weeks. 2. Small subchorionic hemorrhages to the right of the gestational sac andextending inferior to the gestational sac. 3. No free fluid in the cul-de-sac. Unremarkable ovaries with benignphysiologic 1.8 x 1.5 cm cyst in the left ovary, for which no follow-upimaging is recommended. Referred By: Interpreted By: Naina Fofana MD, 03/14/2025 11:39 PM us Dequan Mae MD ULTRASOUND Fi nal Result * BLOOD TYPING, ABO AND RH (03/14/2025 9:33 PM CDT) ABO/RH O POSITIVE 03/14/2025 10:32 PM CDT [facility] 03/14/2025 9:33 PM CDT Dequan Mae MD BLOOD BANK TEST OR DERABLES Final Result [facility] [address] [place] [address], [place] [phone] * (ABNORMAL) Quantitative HCG (03/14/2025 9:27 PM CDT) [facility] HCG QUANTITATIVE 109,133(H ) 0 - 6 MIU/ML 03/14/2025 10:36 PM CDT [facility] Comment: WEEKS OF REFERENCE RANGES NON- FEMALE 0-6 0.2 - 1 5 - 50 1 - 2 50 - 500 2 - 3 100 - 5000 3 - 4 500 - 10,000 4 - 5 1000 - 50,000 5 - 6 10,000 - 100,000 6 - 8 15,000 - 200,000 2 - 3 MONTHS 10,000 - 100,000 03/14/2025 9:27 PM CDT us Dequan Mae MD LABORATORY Fi nal Result [facility] [address] [place] [address], [place] [phone] * TEST URINE (01/17/2025 7:19 PM CDT) [facility] URINE HCG TEST NEGATIVE NEGATIVE 01/17/2025 7:36 PM CDT [facility] Comment: VERY DILUTE URINE SPECIMENS MAY NOT CONTAIN MOVIE PRODUCER LEVELS OF HCG. IF IS STILL SUSPECTED, A SERUM HCG TEST IS RECOMMENDED. URINE SPECIMEN FROM URETHRA / Unknown 01/17/2025 7:19 PM CDT Donna Luu MD URINE ORDERABLES Final Resul t [facility] [address] [place] [address], [place] [phone] * INFLUENZA A & B (01/17/2025 7:08 PM CDT) SPECIMEN TYPE NASOPHARYNX 01/17/2025 7:39 PM CDT [facility] INFLUENZA A NEGATIVE NEGATIVE 01/17/2025 7:39 PM CDT [facility] INFLUENZA B NEGATIVE NEGATIVE 01/17/2025 7:39 PM CDT [facility] NASAL STRUCTURE / Unknown 01/17/2025 7:08 PM CDT Donna Luu MD MICROBIOLOGY - GENERAL ORDER ARUNA Final Result Performing Organization Address [facility]/ZIP Co de Phone Number [facility] [address] [place] [address], [place] [phone] * STREP A RAPID (01/17/2025 7:08 PM CDT) RAPID STREP TEST NEGATIVE NEGATIVE 01/17/2025 7:39 PM CDT [facility] STRUCTURE OF ANTERIOR PORTION OF NECK / Unknown 01/17/2025 7:08 PM CDT Donna Luu MD MICROBIOLOGY - GENERAL ORDER ARUNA Final Result Performing Organization Address City/[facility]/ZIP Co de Phone Number [facility] [address] [place] [address], [place] [phone] from Last 3 Months Insurance [employer] Care Teams Caser Up Relationship Specialty Start Date End Date Terrie Forde, ROLL CUTTER [address] [place] [address] PCP - General Nurse Practitioner Family 10/31/24
--- OUTSIDE RECORDS SUMMARY | 2025-03-18 14:17 | XMS_ITS | Clinical Summary ---
Author Organization [facility] [address] Address [address] [place] [address] Care Team Providers Care Creative Services Specialist Name Role Phone Terrie Forde NP Primary Care Provider [phone] -[phone] Allergies No known active allergies Medications dextroamphetamine- [...] mg total) by mouth daily 4 Active ARIPIPRAZOLE ORAL Take 15 mg by mouth daily 4 Active traZODone (DESYREL) 50 mg tablet TAKE 1 TABLET BY MOUTH EVERY DAY AT BEDTIME NEEDED FOR INSOMNIA 4 Active metoprolol XL (TOPROL-XL) 25 mg extended release tablet Take 1 tablet (25 mg total) by mouth daily 90 tablet 2 5 10/17/19 26 Active Active Problems Problem Noted Date Diagnosed Date Syncope and collapse 07/04/2024 Surgical History Surgery Date Site/Laterality Comments WISDOM [...] Tobacco: Never Tobacco Cessation:Counseling Given: Not Answered AUDIT-C Answer Date Recorded Q1: How often do you have a drink containing alc ohol? 2-4 times a month 11/17/2024 Q2: How many drinks containi ng alcohol do you have on a typical day when you are drinking? 1 or 2 11/17/2024 Q3: How often do you have si x or more drinks on one occasion? Never 11/17/2024 Personal Safety Answer Date Recorded Have you ever been in or are you currently in a harmful physical or emotional relationship or is someone making you feel afraid or unsafe? Denies 11/17/2024 Comments No Sex and Gender Information Value Date Recorded Sex Assigned at Not on file Legal Sex Female 12:17 PM CDT Gender Identity Not on file Sexual Orientation Not on file Obstetrics History Last Filed Vital Signs Vital Sign Reading Time Taken Comments Blood Pressure 109/69 11/17/2024 4:00 PM CDT Pulse 71 11/17/2024 4:00 PM CDT Temperature 36.8 C (98.2 F) 11/17/2024 10:23 AM CDT Respiratory Rate 19 11/17/2024 4:00 PM CDT Oxygen Saturation 93% 11/17/2024 4:00 PM CDT Inhaled Oxygen Concentration - - Weight 61.9 kg (136 lb 7.4 oz) 11/17/2024 10:23 AM CDT Height 157.5 cm (5' 2) 11/17/2024 10:23 AM CDT Body Mass Index 24.96 11/17/2024 10:23 AM CDT Plan of Treatment Health Maintenance Due Date Last Done Comments Cervical Cancer Screening 2002 Chlamydia and Gonorrhea (GC/ CT) Screening 2002 Depression Screening 2002 Hepatitis C Screening 2002 Varicella Vaccines (1 of 2 - 13+ 2-dose series) 2015 HPV Vaccines (1 - 3-dose series) 2017 Meningococcal B Vaccine (1 o f 2 - Standard) 2018 Hepatitis B Screening 2020 Regular Well Visit/Exam 18-64 2020 Influenza Vaccine (#1) 2025 DTaP/Tdap/Td Vaccine (2 - Td or Tdap) 04/12/2034 04/12/2024 Pneumococcal vaccine <65 Aged Out No longer eligible based on patient's age to complete this topic Insurance [facility] Care Teams Creative Services Specialist Relationship Specialty Start Date End Date Terrie Forde, AIR CONDITIONING MANAGER [address] [place] [address] PCP - General Family Medicine 06/05/24
--- OUTSIDE RECORDS SUMMARY | 2025-03-18 14:17 | XMS_ITS | Referral Summary ---
Author Organization [facility] [address] Address [address] [place] [address] Care Team Providers Care Block Layer Name Role Phone Terrie Forde NP Primary Care Provider [phone] [phone] Allergies No known active allergies Medications dextroamphetamine- [...] 11/17/2024 10:23 AM CDT Plan of Treatment Not on file Insurance [facility] Care Teams Block Layer Relationship Specialty Start Date End Date Terrie Forde NP [address] [place] [address] PCP - General Family Medicine 06/05/24
[2025-03-18 14:49] LABS: Hematocrit 37.9 % (37.0-47.0); Hemoglobin 12.4 g/dL (12.0-15.0); Immature Granulocyte Percent A 0.2 % (0-0.5); Lymphocytes Absolute Auto 1.74 K/mm3 (0.9-3.2); Mean Corpuscular HGB Conc 32.7 g/dl (32-36); Mean Corpuscular Hemoglobin 28.1 pg (26-34); Mean Corpuscular Volume 85.7 fl (80-100); Nucleated Red Blood Cells Absolute Auto 0.000 K/mm3 (0.0-0.012); Nucleated Red Blood Cells Perc 0.0 % (0.0-0.2); Platelet Count Result 262 k/mm3 (150-375); Red Blood Count 4.42 M/mm3 (4.2-5.4); White Blood Count 6.1 K/mm3 (4.5-10.0)
[2025-03-18 15:41] LABS: HIV 1/2 Ab P24 Ag Result Negative (Negative)
[2025-03-18 15:44] LABS: Beta HCG Quantitative 131860.00 mIU/ML
[2025-03-18 15:54] LABS: Syphilis IgG/IgM Antibody Non-Reactive (Nonreactive)
[2025-03-18 16:00] LABS: Hepatitis B Surface Antigen Negative (Negative)
[2025-03-19 07:09] LABS: Cytomegalovirus (CMV) Ab, IgG <0.60 U/mL (0.00-0.59); Cytomegalovirus (CMV) Ab, IgM <30.0 AU/mL (0.0-29.9)
[2025-03-19 15:09] LABS: Varicella-Zoster Ab, IgG Reactive (Non Reactive); Varicella-Zoster Ab, IgM <0.91 index (0.00-0.90)
== END 2025-03-18 14:05 | disposition home or self-care (01) ==
LOC: ANHLAB 14:05
PROVIDERS: PCP Nurse Practitioner Family; Visit Provider Obstetrics & Gynecology
DX: N91.2 Amenorrhea, unspecified (principal)
CPT/HCPCS: 36415; 84702; 85025; 86593; 86644; 86645; 86703; 86762; 86787; 86850; 86900; 86901; 87086; 87340; G0432

== ENCOUNTER 2025-03-18 17:04 | Emergency (ER) | payer OTHER, SELFPAY ==
--- OUTSIDE RECORDS SUMMARY | 2025-03-18 17:06 | XMS_ITS | Referral Summary ---
Author Organization [facility] [address] [facility] [address] Address [address] [place] [address] Care Team Providers Care Pot Holder Binder Name Role Phone Terrie Forde NP Primary Care Provider +1 [phone] Allergies No known active allergies Medications dextroamphetamine- [...] Plan of Treatment Not on file Insurance [facility] Care Teams Pot Holder Binder Relationship Specialty Start Date End Date Terrie Forde NP [address] [place] [address] PCP - General Family Medicine 06/05/24
--- OUTSIDE RECORDS SUMMARY | 2025-03-18 17:06 | XMS_ITS | Clinical Summary ---
Author Organization [facility] Address [address] [place] [address] Care Team Providers Care Welfare Worker Name Role Phone KarelyTerrie ramon Deena FIRE CREW SPECIALIST Primary Care Provider +1- [phone] Allergies No known active allergies Medications Aripiprazole [...] CDT - 03/16/2025 8:16 PM CDT Emergency [facility] Emergency Room [address] [place] [address] Lisa Sifuentes MD Vomiting (preg); Complications Discharge Disposition: Home or Self Care (Routine Discharge) 03/16/2025 Travel 03/14/2025 9:06 PM CDT - 03/15/2025 1:03 AM CDT Emergency [facility] Emergency Room [address] [place] [address] Dequan Mae MD Vomiting Discharge Disposition: Home or Self Care (Routine Discharge) 03/14/2025 Travel 01/17/2025 7:00 PM CDT - 01/17/2025 7:56 PM CDT Emergency [facility] Emergency Room [address] [place] [address] Donna Luu MD Sore Throat Discharge Disposition: [...] Sex Assigned at Female 10/31/2024 7:30 PM 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 Legal Sex Female 7:07 PM 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 Gender Identity Female 03/14/2025 9:18 PM CDT [...] COLOR (U) YELLOW 03/16/2025 7:52 PM CDT [facility] TRANSPARENCY CLEAR 03/16/2025 7:52 PM CDT [facility] SPECIFIC GRAVITY (U) 1.020 1.000 - 1.030 03/16/2025 7:52 PM CDT [facility] U PH 6.5 5.0 - 9.0 03/16/2025 7:52 PM CDT [facility] LEUKOCYTES (U) NEGATIVE NEGATIVE 03/16/2025 7:52 PM CDT [facility] NITRITES NEGATIVE NEGATIVE 03/16/2025 7:52 PM CDT [facility] PROTEIN RANDOM (U) TRACE(A) NEGATIVE 03/16/2025 7:52 PM CDT [facility] GLUCOSE (U) 1+(A) NEGATIVE 03/16/2025 7:52 PM CDT [facility] KETONES MG/DL (U) 3+(A) NEGATIVE 03/16/2025 7:52 PM CDT [facility] BILIRUBIN (U) NEGATIVE NEGATIVE 03/16/2025 7:52 PM CDT [facility] BLOOD (U) NEGATIVE NEGATIVE 03/16/2025 7:52 PM CDT [facility] WBC/HPF NONE SEEN 0 - 5 /HPF 03/16/2025 7:52 PM CDT [facility] RBC/HPF NONE SEEN 0 - 5 /HPF 03/16/2025 7:52 PM CDT [facility] EPI/HPF FEW /HPF 03/16/2025 7:52 PM CDT [facility] URINE SPECIMEN OBTAINED BY CLEAN CATCH PROCEDURE / Unknown 03/16/2025 7:30 PM CDT us Lisa Sifuentes MD URINE ORDERABLES Final Result [facility] [address] [place] [address], [place] [phone] * (ABNORMAL) COMPREHENSIVE METABOLIC PANEL (03/16/2025 6:07 PM CDT) Only the most recent of2 resultswithin the time period is included. GLUCOSE 86 70 - 99 MG/DL 03/16/2025 6:40 PM CDT [facility] BUN 10 7 - 18 MG/DL 03/16/2025 6:40 PM CDT [facility] CREATININE S/P/B 0.65 0.55 - 1.02 MG/DL 03/16/2025 6:40 PM CDT [facility] SODIUM S/P/B 134(L) 136 - 145 MMOL/L 03/16/2025 6:40 PM CDT [facility] POTASSIUM S/P/B 3.7 3.5 - 5.1 MMOL/L 03/16/2025 6:40 PM CDT [facility] CHLORIDE S/P/B 100 100 - 108 MMOL/L 03/16/2025 6:40 PM CDT [facility] CO2 25.0 21 - 32 MMOL/L 03/16/2025 6:40 PM [facility] CALCIUM S/P/B 8.6 8.5 - 10.1 MG/DL 03/16/2025 6:40 PM [facility] BILIRUBIN TOTAL S/P/B 1.0 0.2 - 1.2 MG/DL 03/16/2025 6:40 PM [facility] TOTAL PROTEIN S/P/B 7.0 6.4 - 8.2 G/DL 03/16/2025 6:40 PM [facility] ALBUMIN S/P/B 3.5 3.4 - 5.0 G/DL 03/16/2025 6:40 PM [facility] AST 17 15 - 37 U/L 03/16/2025 6:40 PM [facility] ALT 20 14 - 55 U/L 03/16/2025 6:40 PM [facility] ALKALINE PHOSPHATASE S/P/B 59 50 - 136 U/L 03/16/2025 6:40 PM [facility] ANION GAP 9.0 5 - 15 MMOL/L 03/16/2025 6:40 PM [facility] BUN CREATININE RATIO 15.4 6 - 26 03/16/2025 6:40 PM [facility] A/G RATIO 1.0 1.0 - 2.0 RATIO 03/16/2025 6:40 PM [facility] GFR ESTIMATE >90 >90 ML/MIN/1.7 3 M2 03/16/2025 6:40 PM [facility] Comment: NOTE: eGFR is not calculated for patients <18 years of age. This is an estimated GFR calculation using the new CKD EPI creatinine equation without race and so does not require a correction factor for race. This estimated GFR should not be used for calculating drug doses. 03/16/2025 6:07 PM CDT us Lisa Sifuentes MD LABORATORY Final Result [facility] [address] [place] [address], [place] [phone] * (ABNORMAL) CBC W/DIFF AUTOMATED (03/16/2025 6:07 PM CDT) Only the most recent of2 resultswithin the time period is included. WBC 8.54 4.4 - 11.0 x10'3/uL 03/16/2025 6:28 PM CDT [facility] RBC 4.54 4.50 - 5.10 x10'6/uL 03/16/2025 6:28 PM CDT [facility] HGB 13.3 12.3 - 15.3 G/DL 03/16/2025 6:28 PM CDT [facility] HCT 38.7 35.9 - 44.6 % 03/16/2025 6:28 PM CDT [facility] MCV 85.2 80.0 - 96.0 FL 03/16/2025 6:28 PM CDT [facility] MCH 29.3 25.3 - 30.9 PG 03/16/2025 6:28 PM CDT [facility] MCHC 34.4(H) 31.0 - 34.1 G/DL 03/16/2025 6:28 PM CDT [facility] RDW 13.2 12.4 - 15.1 % 03/16/2025 6:28 PM CDT [facility] PLT 254 151 - 353 x10'3/uL 03/16/2025 6:28 PM CDT [facility] MPV 9.9 9.6 - 12.0 FL 03/16/2025 6:28 PM CDT [facility] RBC MORPHOLOGY NORMAL 03/16/2025 6:28 PM CDT [facility] PLT MORPH. NORMAL 03/16/2025 6:28 PM CDT [facility] WBC MORPHOLOGY NORMAL 03/16/2025 6:28 PM CDT [facility] LYMPHOCYTES % 17.4 15.8 - 45.0 % 03/16/2025 6:28 PM CDT [facility] NEUTROPHILS % 74.6(H) 42.1 - 71.9 % 03/16/2025 6:28 PM CDT [facility] MONOCYTES % 6.6 5.7 - 12.5 % 03/16/2025 6:28 PM CDT [facility] EOSINOPHILS 0.8 0.0 - 5.6 % 03/16/2025 6:28 PM CDT [facility] BASOPHILS 0.4 0.0 - 1.3 % 03/16/2025 6:28 PM CDT [facility] ABS. NEUTROPHILS 6.37(H) 1.40 - 6.00 x10'3/uL 03/16/2025 6:28 PM CDT [facility] IMMATURE GRANS % 0.2 0.0 - 0.5 % 03/16/2025 6:28 PM CDT [facility] ABS. LYMPHOCYTES 1.49 0.80 - 4.70 x10'3/uL 03/16/2025 6:28 PM CDT [facility] 03/16/2025 6:07 PM CDT us Lisa Sifuentes MD LABORATORY Final Result [facility] [address] [place] [address], * AMYLASE (03/16/2025 6:07 PM CDT) AMYLASE S/P/B 52 25 - 115 UNITS/L 03/16/2025 6:40 PM CDT [facility] 03/16/2025 6:07 PM CDT us Lisa Sifuentes MD LABORATORY Final Result Performing Organization Address City/[facility]/ZIP Co de Phone Number [facility] [address] [place] [address], [place] [phone] * LIPASE (03/16/2025 6:07 PM CDT) LIPASE 28 16 - 77 UNITS/L 03/16/2025 6:40 PM CDT [facility] 03/16/2025 6:07 PM CDT us Lisa Sifuentes MD LABORATORY Final Result Performing Organization Address [facility] Co de Phone Number [facility] [address] [place] [address], [place] [phone] * US OB <14WKS TA+TV (03/14/2025 11:02 [...] 11:39 PM Narrative 03/14/2025 11:48 PM CDT [facility] [address] [place] [address] EXAM: US OB <14WKS TA+TV CLINICAL INFORMATION: [...] viable intrauterine with heart rate 144 bpm. [place]-rump measurement is 12.49 cm corresponding to a 7 week 4 day with SERIGO 10/27/2025 +/- 2 weeks. This correlates fairly [...] Procedure Note Naina Fofana MD - 03/14/2025 [facility] [address] [place] [address] EXAM: US OB <14WKS TA+TV CLINICAL INFORMATION: [...] viable intrauterinepregnancy with heart rate 144 bpm. [place]-rump measurement is 12.49cm corresponding to a 7 [...] ABO/RH O POSITIVE 03/14/2025 10:32 PM CDT [facility] 03/14/2025 9:33 PM CDT Dequan Mae MD BLOOD BANK TEST OR DERABLES Final Result [facility] [address] [place] [address], [place] [phone] * (ABNORMAL) Quantitative HCG (03/14/2025 9:27 PM CDT) [facility] HCG QUANTITATIVE 109,133(H ) 0 - 6 MIU/ML 03/14/2025 10:36 PM CDT [facility] Comment: WEEKS OF REFERENCE RANGES [...] Dequan Mae MD LABORATORY Fi nal Result [facility] [address] [place] [address], [place] [phone] * TEST URINE (01/17/2025 7:19 PM CDT) [facility] URINE HCG TEST NEGATIVE NEGATIVE 01/17/2025 7:36 PM CDT [facility] Comment: VERY DILUTE URINE SPECIMENS MAY NOT CONTAIN DIET CLERK LEVELS OF HCG. IF IS STILL SUSPECTED, A SERUM HCG TEST IS RECOMMENDED. URINE SPECIMEN FROM URETHRA / Unknown 01/17/2025 7:19 PM CDT Donna Luu MD URINE ORDERABLES Final Resul t [facility] [address] [place] [address], [place] [phone] * INFLUENZA A & B (01/17/2025 7:08 PM CDT) SPECIMEN TYPE NASOPHARYNX 01/17/2025 7:39 PM CDT [facility] INFLUENZA A NEGATIVE NEGATIVE 01/17/2025 7:39 PM CDT [facility] INFLUENZA B NEGATIVE NEGATIVE 01/17/2025 7:39 PM CDT [facility] NASAL STRUCTURE / Unknown 01/17/2025 7:08 PM CDT Donna Luu MD MICROBIOLOGY - GENERAL ORDER ARUNA Final Result Performing Organization Address [facility]/ZIP Co de Phone Number [facility] [address] [place] [address], [place] [phone] * STREP A RAPID (01/17/2025 7:08 PM CDT) RAPID STREP TEST NEGATIVE NEGATIVE 01/17/2025 7:39 PM CDT [facility] STRUCTURE OF ANTERIOR PORTION OF NECK / Unknown 01/17/2025 7:08 PM CDT Donna Luu MD MICROBIOLOGY - GENERAL ORDER ARUNA Final Result Performing Organization Address City/[facility]/ZIP Co de Phone Number [facility] [address] [place] [address], [place] [phone] from Last 3 Months Insurance [employer] Care Teams Welfare Worker Relationship Specialty Start Date End Date Terrie Forde, FIRE CREW SPECIALIST [address] [place] [address] PCP - General Nurse Practitioner Family 10/31/24
--- OUTSIDE RECORDS SUMMARY | 2025-03-18 17:06 | XMS_ITS | Encounter Summary ---
Author Organization [facility] Address [address] [place] [address] Care Team Providers Care Java Developer Consultant Name Role Phone KarelyTerrie ramon Deena PRACTICE COORDINATOR Primary Care Provider +1- [phone] Reason for Referral * Medication Prior Authorization - Closed Specialty Diagnoses / Procedures Referred By Philip reid Referred To Contact Diagnoses Hyperemesis gravidarum ([facility]/HCC) Timoteo Shoemaker MD [address] [place] [address] Phone: tel: fax: Referral ID Status Reason Start Date Expiration Date Visits Re quested Visits Authorized [id number] Closed 1 1 Reason for Visit * Reason Comments Vomiting preg Complications Encounter Details Date Type Department Care Team (Late st Contact Info) Description 03/16/2025 5:54 PM CDT - 03/16/2025 8:16 PM CDT Emergency [facility] Emergency Room [address] [place] [address] Lisa Sifuentes MD [address] [place] [address] Vomiting (preg); Complications Discharge Disposition: Home [...] Sex Assigned at Female 10/31/2024 7:30 PM 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 * Hyperemesis gravidarum ([place]) documented in this encounter Medications at Time of Discharge doxylamine-pyridoxi ne EC (DICLEGIS) 10-10 MG tabletIndications:H yperemesis gravidarum ([facility]) Take two tablets by mouth at bedtime [...] to patient. Patient agreeable. Discussed follow-up with SASH FINISHER and return to the emergency room if [...] Clinical impression: SNOMED CT(R) 1. Hyperemesis gravidarum ([facility]) HYPEREMESIS GRAVIDARUM Disposition: Discharge TIMOTEO SHOEMAKER MD [...] here last week for the same. Patient's SASH FINISHER is at [facility]. Patient states the last time she was [...] tablets) per day., Eprescribe Class: Eprescribe Pharmacy: [facility]/pharmacy #[id number] [facility] [address] (Ph #: [phone]) Follow-up: Terrie Forde NP [address] [facility] [address] Schedule an appointment as soon as possible for a visit [facility] Emergency Room [address] [address] [facility] [address] Go to If symptoms worsen Your OBGYN Lisa Sifuentes MD 03/17/2025 06:57 [1] Past Medical History: Diagnosis Date ADHD Anxiety disorder, unspecified Depression POTS (postural orthostatic tachycardia syndrome) Schizophrenia ([facility]/HCC HHS/HCC) [2] Past Surgical History: Procedure Laterality [...] weeks . She called her OB at [facility] who encouraged her to be seen at [...] COLOR (U) YELLOW 03/16/2025 7:52 PM CDT [facility] TRANSPARENCY CLEAR 03/16/2025 7:52 PM CDT [facility] SPECIFIC GRAVITY (U) 1.020 1.000 - 1.030 03/16/2025 7:52 PM CDT [facility] U PH 6.5 5.0 - 9.0 03/16/2025 7:52 PM CDT [facility] LEUKOCYTES (U) NEGATIVE NEGATIVE 03/16/2025 7:52 PM CDT [facility] NITRITES NEGATIVE NEGATIVE 03/16/2025 7:52 PM CDT [facility] PROTEIN RANDOM (U) TRACE(A) NEGATIVE 03/16/2025 7:52 PM CDT [facility] GLUCOSE (U) 1+(A) NEGATIVE 03/16/2025 7:52 PM CDT [facility] KETONES MG/DL (U) 3+(A) NEGATIVE 03/16/2025 7:52 PM CDT [facility] BILIRUBIN (U) NEGATIVE NEGATIVE 03/16/2025 7:52 PM CDT [facility] BLOOD (U) NEGATIVE NEGATIVE 03/16/2025 7:52 PM CDT [facility] WBC/HPF NONE SEEN 0 - 5 /HPF 03/16/2025 7:52 PM CDT [facility] RBC/HPF NONE SEEN 0 - 5 /HPF 03/16/2025 7:52 PM CDT [facility] EPI/HPF FEW /HPF 03/16/2025 7:52 PM CDT [facility] URINE SPECIMEN OBTAINED BY CLEAN CATCH PROCEDURE / Unknown 03/16/2025 7:30 PM CDT us Lisa Sifuentes MD URINE ORDERABLES Final Result Performing Organization Address [facility] [place] [facility] Co de Phone Number [facility] [address] [place] [address], [place] [phone] * AMYLASE (03/16/2025 6:07 PM CDT) AMYLASE S/P/B 52 25 - 115 UNITS/L 03/16/2025 6:40 PM CDT [facility] 03/16/2025 6:07 PM CDT us Lisa Sifuentes MD LABORATORY Final Result Performing Organization Address [facility] [place] [facility] Co de Phone Number [facility] [address] [place] [address], [place] [phone] * LIPASE (03/16/2025 6:07 PM CDT) LIPASE 28 16 - 77 UNITS/L 03/16/2025 6:40 PM CDT [facility] 03/16/2025 6:07 PM CDT us Lisa Sifuentes MD LABORATORY Final Result Performing Organization Address [facility] [place] [facility] Co de Phone Number [facility] [address] [place] [address], [place] [phone] * (ABNORMAL) COMPREHENSIVE METABOLIC PANEL (03/16/2025 6:07 PM CDT) GLUCOSE 86 70 - 99 MG/DL 03/16/2025 6:40 PM CDT [facility] BUN 10 7 - 18 MG/DL 03/16/2025 6:40 PM T [facility] CREATININE S/P/B 0.65 0.55 - 1.02 MG/DL 03/16/2025 6:40 PM [facility] SODIUM S/P/B 134(L) 136 - 145 MMOL/L 03/16/2025 6:40 PM T [facility] POTASSIUM S/P/B 3.7 3.5 - 5.1 MMOL/L 03/16/2025 6:40 PM T [facility] CHLORIDE S/P/B 100 100 - 108 MMOL/L 03/16/2025 6:40 PM [facility] CO2 25.0 21 - 32 MMOL/L 03/16/2025 6:40 PM [facility] CALCIUM S/P/B 8.6 8.5 - 10.1 MG/DL 03/16/2025 6:40 PM [facility] BILIRUBIN TOTAL S/P/B 1.0 0.2 - 1.2 MG/DL 03/16/2025 6:40 PM [facility] TOTAL PROTEIN S/P/B 7.0 6.4 - 8.2 G/DL 03/16/2025 6:40 PM [facility] ALBUMIN S/P/B 3.5 3.4 - 5.0 G/DL 03/16/2025 6:40 PM [facility] AST 17 15 - 37 U/L 03/16/2025 6:40 PM [facility] ALT 20 14 - 55 U/L 03/16/2025 6:40 PM [facility] ALKALINE PHOSPHATASE S/P/B 59 50 - 136 U/L 03/16/2025 6:40 PM T [facility] ANION GAP 9.0 5 - 15 MMOL/L 03/16/2025 6:40 PM CDT [facility] BUN CREATININE RATIO 15.4 6 - 26 03/16/2025 6:40 PM CDT [facility] A/G RATIO 1.0 1.0 - 2.0 RATIO 03/16/2025 6:40 PM CDT [facility] GFR ESTIMATE >90 >90 ML/MIN/1.7 3 M2 03/16/2025 6:40 PM CDT [facility] Comment: NOTE: eGFR is not calculated for patients <18 years of age. This is an estimated GFR calculation using the new CKD EPI creatinine equation without race and so does not require a correction factor for race. This estimated GFR should not be used for calculating drug doses. 03/16/2025 6:07 PM CDT us Lisa Sifuentes MD LABORATORY Final Result [facility] [address] [place] [address], [place] [phone] * (ABNORMAL) CBC W/DIFF AUTOMATED (03/16/2025 6:07 PM CDT) WBC 8.54 4.4 - 11.0 x10'3/uL 03/16/2025 6:28 PM CDT [facility] RBC 4.54 4.50 - 5.10 x10'6/uL 03/16/2025 6:28 PM CDT [facility] HGB 13.3 12.3 - 15.3 G/DL 03/16/2025 6:28 PM CDT [facility] HCT 38.7 35.9 - 44.6 % 03/16/2025 6:28 PM CDT [facility] MCV 85.2 80.0 - 96.0 FL 03/16/2025 6:28 PM CDT [facility] MCH 29.3 25.3 - 30.9 PG 03/16/2025 6:28 PM CDT [facility] MCHC 34.4(H) 31.0 - 34.1 G/DL 03/16/2025 6:28 PM CDT [facility] RDW 13.2 12.4 - 15.1 % 03/16/2025 6:28 PM CDT [facility] PLT 254 151 - 353 x10'3/uL 03/16/2025 6:28 PM CDT [facility] MPV 9.9 9.6 - 12.0 FL 03/16/2025 6:28 PM CDT [facility] RBC MORPHOLOGY NORMAL 03/16/2025 6:28 PM T [facility] PLT MORPH. NORMAL 03/16/2025 6:28 PM T [facility] WBC MORPHOLOGY NORMAL 03/16/2025 6:28 PM T [facility] LYMPHOCYTES % 17.4 15.8 - 45.0 % 03/16/2025 6:28 PM T [facility] NEUTROPHILS % 74.6(H) 42.1 - 71.9 % 03/16/2025 6:28 PM CDT [facility] MONOCYTES % 6.6 5.7 - 12.5 % 03/16/2025 6:28 PM T [facility] EOSINOPHILS 0.8 0.0 - 5.6 % 03/16/2025 6:28 PM CDT [facility] BASOPHILS 0.4 0.0 - 1.3 % 03/16/2025 6:28 PM CDT [facility] ABS. NEUTROPHILS 6.37(H) 1.40 - 6.00 x10'3/uL 03/16/2025 6:28 PM CDT [facility] IMMATURE GRANS % 0.2 0.0 - 0.5 % 03/16/2025 6:28 PM CDT [facility] ABS. LYMPHOCYTES 1.49 0.80 - 4.70 x10'3/uL 03/16/2025 6:28 PM CDT [facility] 03/16/2025 6:07 PM CDT us Lisa Sifuentes MD LABORATORY Final Result [facility] [address] [place] [address], documented in this encounter Visit Diagnoses Diagnosis Hyperemesis gravidarum ([facility])- Primary Mild hyperemesis gravidarum, unspecified as to [...] RN) documented in this encounter Care Teams Java Developer Consultant Relationship Specialty Start Date End Date Terrie Forde, GRACE [address] [place] [address] PCP - General Nurse Practitioner Family 10/31/24 documented as of this encounter
--- OUTSIDE RECORDS SUMMARY | 2025-03-18 17:06 | XMS_ITS | Clinical Summary ---
Author Organization [facility] [address] Address [address] [place] [address] Care Team Providers Care Personal Consultant Name Role Phone Terrie Forde NP Primary Care Provider +1 -[phone] Allergies No known active allergies Medications dextroamphetamine- [...] patient's age to complete this topic Insurance [facility] Care Teams Personal Consultant Relationship Specialty Start Date End Date Terrie Forde, REPRODUCTION MACHINE LOADER [address] [place] [address] PCP - General Family Medicine 06/05/24
--- OUTSIDE RECORDS SUMMARY | 2025-03-18 17:06 | XMS_ITS ---
Author Organization Unknown Plan of Treatment Description Planned Activity Planned Timing [facility] is a provider organization who partners directly with Health Plans and provides integrated primary care, behavioral health, and social worker psychiatric for an attributed population Letter encounter to patientTelephone encounter Mar 05, 2025Jul 2024 Patient Care team information Name Category Status Period Participants - - Proposed period not known -
[2025-03-18 17:07] VITALS: BP 117/70; PULSE 97; RESP 16; TEMP 36.8; O2SAT 100
--- OUTSIDE RECORDS SUMMARY | 2025-03-18 20:21 | XMS_ITS ---
Author Organization Unknown Plan of Treatment Description Planned Activity Planned Timing [facility] is a provider organization who partners directly with [employer] and provides integrated primary care, behavioral health, and outreach and education social worker for an attributed population Letter encounter to patientTelephone encounter Mar 05, 2025Jul 2024 Patient Care team information Name Category Status Period Participants - - Proposed period not known -
--- OUTSIDE RECORDS SUMMARY | 2025-03-18 20:21 | XMS_ITS | Encounter Summary ---
Author Organization [facility] Address [address] [place] [address] Care Team Providers Care Fruit Dryer Name Role Phone Terrie Forde BILLING ANALYST Primary Care Provider +1- [phone] Reason for Visit * Reason Comments Dehydration Encounter Details Date Type Department Care Team (Late st Contact Info) Description 03/18/2025 6:23 PM CDT - Present Emergency [facility] Emergency Room [address] [place] [address] Donna Luu MD [address] [place] [address] Ventura Ballesteros MD [address] [place] [address] Dehydration Social History Tobacco Use Types Packs/Day Years Used Date Smoking Tobacco: Former Cigarettes Smokeless Tobacco: Never Alcohol Use Standard Drinks/Week Comments Not Currently 0 (1 standard drink = 0.6 oz pur e alcohol) social Estimated Date of Delivery Comme nts Yes 10/30/2025 Sex and Gender Information Value Date Recorded Sex Assigned at Female 10/31/2024 7:30 PM SUPERVISOR [employer] Legal Sex Female 7:07 PM SUPERVISOR [employer] Gender Identity Female 03/14/2025 9:18 PM CDT Sexual Orientation Straight 03/14/2025 9: 18 PM CDT documented as of this encounter Last Filed Vital Signs Vital Sign Reading Time Taken Comments Blood Pressure 103/67 03/18/2025 6:45 PM CDT Pulse 76 03/18/2025 6:45 PM CDT Temperature 36.6 C (97.9 F) 03/18/2025 6:45 PM CDT Respiratory Rate 18 03/18/2025 6:45 PM CDT Oxygen Saturation 98% 03/18/2025 6:45 PM CDT Inhaled Oxygen Concentration - - Weight 61.7 kg (136 lb) 03/18/2025 6:45 PM CDT Height 157.5 cm (5' 2) 03/18/2025 6:45 PM CDT Body Mass Index 24.87 03/18/2025 6:45 PM CDT documented in this encounter Functional Status * Calculated C-SSRS Risk Score (Lifetime/Recent) Answer Date of Assessment Author Status No Risk Indicated 03/18/2025 6:44 PM CDT Katie Hernandez RN Active * [place] Suicide Severity Rating Scale (Screener/Recent Self-Report) Question Answer Date of Assessment Author Status 1. Wish to be (Past 1 Month) No 03/18/2025 6:44 PM CDT Rosa Hernandez RN Ac tive 2. Non-Specific Active Suicidal Thoughts (Past 1 Month) No 03/18/2025 6:44 PM CDT Rosa Hernandez RN Ac tive 6. 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 There is no evidence of starvation ketoacidosis. Laboratory 5.7. Anion gap 8.3 with an albumin of 3.6. CBC unremarkable D/W patient and partner Clinical Impression Hyperemesis gravidarum (HHS/[facility]) (Primary) Ventura Ballesteros MD 03/18/251934 * Rosa Hernandez RN - 03/18/2025 6:43 PM CDT Patient arrives ambulatory to ER from OBGYN office for dehydration. Patient is 7weeks 5 days and has been having dizziness/lightheadedness/floaties in eyesight today. Patient has been vomiting today and has not been able to keep food down. * Donna Luu MD - 03/18/2025 6:22 PM CDT Chief Complaint No chief complaint on file. History of Present Illness patient is a 25-year-old female with history of POTS, at 7 weeks based on last menstrual period presenting with nausea and vomiting. She reports she has a history of hyperemesis gravidarum. Shefollows with obstetrics at [place] who reportedly are trying to get her home health to do IV fluids at home. She has been vomiting a lot and Compazine is helping her symptoms but she vomited a lot today. She noticed decreased urination, dysuria. No vaginal bleeding or vaginal discharge. Has some lower abdominal pain. Had a ultrasound confirming intrauterine with her ELECTRONICS [employer]S SALES REPRESENTATIVE. No fevers, chills, back pain or other complaints at this time. Medical History ALLERGIES: No Known Allergies MEDICATIONS: Prior to Admission medications Medication Sig Start Date End Date Taking? Authorizing Provider amitriptyline (ELAVIL) 10 MG tablet Take 3 tablets (30 mg total) by mouth nightly at bedtime. Default History Genericprovider amphetamine-dextroamphetamine (ADDERALL) 20 MG tablet Take 1 tablet (20 mg total) by mouth daily. Default History Genericprovider Aripiprazole 20 MG Tab Take 1 tablet by mouth daily. Default History Genericprovider doxylamine-pyridoxine EC (DICLEGIS) 10-10 MG tablet Take [...] 40 mg (4 tablets) per day. 03/16/25 Ruben Shoemaker MD ondansetron (ZOFRAN) 4 MG tablet Take 1 tablet (4 mg total) by mouth every 8 (eight) hours as needed for Nausea. 10/31/24 Verenice Luna MD ondansetron (ZOFRAN-ODT) 4 MG disintegrating tablet Take 1 tablet (4 mg total) by mouth every 8 (eight) hours as needed for Nausea. 01/17/25 oDnna Luu MD prochlorperazine (COMPAZINE) 10 MG tablet [...] History[4] Review of Systems Review of Systems Physical Exam There were no vitals filed for this visit. Physical Exam Vitals and nursing note reviewed. Constitutional: General: She is not in acute distress. Appearance: Normal appearance. HENT: Head: Normocephalic and atraumatic. Cardiovascular: Rate and Rhythm: Normal rate and regular rhythm. Pulmonary: Effort: Pulmonary effort is normal. No respiratory distress. Abdominal: General: Abdomen is flat. There is no distension. Palpations: Abdomen is soft. Tenderness: There is no abdominal tenderness. There is no guarding or rebound. Skin: General: Skin is warm and dry. Neurological: Mental Status: She is alert. Psychiatric: Mood and Affect: Mood normal. Behavior: Behavior normal. Diagnostic Studies / Procedures ELECTROCARDIOGRAMS: No results found for this visit on 03/18/25. LABORATORY STUDIES: No results found for this visit on 03/18/25. IMAGING STUDIES No orders to display ED Course / Medical Decision Making Patient is a 25-year-old female presenting with hyperemesis, dehydration. Hemodynamically stable onarrival in no distress. Will treat with IV fluids, obtain CBC for infection UA, CMP for renal impairment electrolyte derangement, hepatic impairment, UA for infection. She is agreeable with this plan. No other complaints at this time. Treated with Compazine for nausea. Will sign out to oncoming provider Dr. Ballesteros at shift change 1900 Medical Decision Making Amount and/or Complexity of Data Reviewed Labs: ordered. Clinical Impression None Disposition: Data Unavailable [1] Past Medical History: Diagnosis Date ADHD Anxiety disorder, unspecified Depression POTS (postural orthostatic tachycardia syndrome) Schizophrenia ([facility]/HCC [facility]/HCC) [2] Past Surgical History: Procedure Laterality Date TOOTH EXTRACTION Bilateral 2019 x4 [3] No family history on file. [4] Social History Tobacco Use Smoking status: Former Types: Cigarettes Smokeless tobacco: Never Vaping Use Vaping status: Never Used Substance Use Topics Alcohol use: Not Currently Comment: social Drug use: Never Donna Luu MD 03/18/25 1843 documented in this encounter Plan of Treatment Scheduled Orders Name Type Priority Associated Diagnoses Orde r Schedule URINALYSIS, AUTO, COMPLETE Lab Routine STAT for 1 Occur rences starting 03/18/2025 until 03/18/2025 documented as of this encounter Procedures * The patient is currently admitted. The information in this section might not be complete until the patient is discharged. Procedure Name Priority Date/Time Associated Diagnosis Comments COMPREHENSIVE METABOLIC PANEL STAT 03/18/2025 6:40 PM CDT CBC W/DIFF AUTOMATED STAT 03/18/2025 6:40 PM CDT documented in this encounter Results * (ABNORMAL) COMPREHENSIVE METABOLIC PANEL (03/18/2025 6:40 PM CDT) GLUCOSE 84 70 - 99 MG/DL 03/18/2025 7:02 PM [facility] BUN 7 7 - 18 MG/DL 03/18/2025 7:02 PM [facility] CREATININE S/P/B 0.57 0.55 - 1.02 MG/DL 03/18/2025 7:02 PM [facility] SODIUM S/P/B 135(L) 136 - 145 MMOL/L 03/18/2025 7:02 PM [facility] POTASSIUM S/P/B 3.3(L) 3.5 - 5.1 MMOL/L 03/18/2025 7:02 PM [facility] CHLORIDE S/P/B 101 100 - 108 MMOL/L 03/18/2025 7:02 PM [facility] CO2 25.7 21 - 32 MMOL/L 03/18/2025 7:02 PM [facility] CALCIUM S/P/B 8.8 8.5 - 10.1 MG/DL 03/18/2025 7:02 PM [facility] BILIRUBIN TOTAL S/P/B 0.7 0.2 - 1.2 MG/DL 03/18/2025 7:02 PM [facility] TOTAL PROTEIN S/P/B 7.0 6.4 - 8.2 G/DL 03/18/2025 7:02 PM [facility] ALBUMIN S/P/B 3.6 3.4 - 5.0 G/DL 03/18/2025 7:02 PM [facility] AST 15 15 - 37 U/L 03/18/2025 7:02 PM [facility] ALT 20 14 - 55 U/L 03/18/2025 7:02 PM [facility] ALKALINE PHOSPHATASE S/P/B 56 50 - 136 U/L 03/18/2025 7:02 PM CDT [facility] ANION GAP 8.3 5 - 15 MMOL/L 03/18/2025 7:02 PM CDT [facility] BUN CREATININE RATIO 12.3 6 - 26 03/18/2025 7:02 PM CDT [facility] A/G RATIO 1.1 1.0 - 2.0 RATIO 03/18/2025 7:02 PM T [facility] GFR ESTIMATE >90 >90 ML/MIN/1.7 3 M2 03/18/2025 7:02 PM CDT [facility] Comment: NOTE: eGFR is not calculated for patients <18 years of age. This is an estimated GFR calculation using the new CKD EPI creatinine equation without race and so does not require a correction factor for race. This estimated GFR should not be used for calculating drug doses. 03/18/2025 6:40 PM CDT us Donna Luu MD LABORATORY Final Result [facility] [address] [place] [id number], * (ABNORMAL) CBC W/DIFF AUTOMATED (03/18/2025 6:40 PM CDT) WBC 7.28 4.4 - 11.0 x10'3/uL 03/18/2025 6:45 PM CDT [facility] RBC 4.17(L) 4.50 - 5.10 x10'6/uL 03/18/2025 6:45 PM CDT [facility] HGB 12.1(L) 12.3 - 15.3 G/DL 03/18/2025 6:45 PM CDT [facility] HCT 35.3(L) 35.9 - 44.6 % 03/18/2025 6:45 PM CDT [facility] MCV 84.7 80.0 - 96.0 FL 03/18/2025 6:45 PM CDT [facility] MCH 29.0 25.3 - 30.9 PG 03/18/2025 6:45 PM CDT [facility] MCHC 34.3(H) 31.0 - 34.1 G/DL 03/18/2025 6:45 PM CDT [facility] RDW 13.2 12.4 - 15.1 % 03/18/2025 6:45 PM CDT [facility] PLT 248 151 - 353 x10'3/uL 03/18/2025 6:45 PM CDT [facility] MPV 9.7 9.6 - 12.0 FL 03/18/2025 6:45 PM CDT [facility] RBC MORPHOLOGY NORMAL 03/18/2025 6:45 PM CDT [facility] PLT MORPH. NORMAL 03/18/2025 6:45 PM CDT [facility] WBC MORPHOLOGY NORMAL 03/18/2025 6:45 PM T [facility] LYMPHOCYTES % 24.6 15.8 - 45.0 % 03/18/2025 6:45 PM CDT [facility] NEUTROPHILS % 67.5 42.1 - 71.9 % 03/18/2025 6:45 PM CDT [facility] MONOCYTES % 5.9 5.7 - 12.5 % 03/18/2025 6:45 PM CDT [facility] EOSINOPHILS 1.4 0.0 - 5.6 % 03/18/2025 6:45 PM CDT [facility] BASOPHILS 0.3 0.0 - 1.3 % 03/18/2025 6:45 PM CDT [facility] ABS. NEUTROPHILS 4.92 1.40 - 6.00 x10'3/uL 03/18/2025 6:45 PM CDT [facility] IMMATURE GRANS % 0.3 0.0 - 0.5 % 03/18/2025 6:45 PM CDT [facility] ABS. LYMPHOCYTES 1.79 0.80 - 4.70 x10'3/uL 03/18/2025 6:45 PM CDT [facility] 03/18/2025 6:40 PM CDT us Donna Luu MD LABORATORY Final Result [facility] [address] [place] [address], [place] [phone] documented in this encounter Visit Diagnoses Diagnosis Hyperemesis gravidarum (HHS/HCC)- Primary Mild hyperemesis gravidarum, unspecified as to episode of care documented in this encounter Administered Medications Inactive Administered Medications - up to 3 most recent administrations Medication Order MAR Action Action Date Dose Rate Site prochlorperazine (COMPAZINE) injection 10 mg 10 mg, Intravenous, Once, 1 dose, On Sun03/18/25 at 1830, If giving IV, administer diluted or undiluted by slow IV push at a maximum rate of 5 mg/minute. To reduce the risk of hypotension the patient must remain lying down and be observed for 30 minutes after receiving the medication. IM administration: Outer gluteal muscle Given 03/18/2025 7:06 PM CDT 10 mg sodium chloride 0.9% bolus infusion 1,500 mL 1,500 mL, Intravenous, Administer over 60 Minutes, Once, 1 dose, On Sun03/18/25 at 1830 New Bag 03/18/2025 7:07 PM CDT 1,500 mLs 1500 mL/hr documented in this encounter Active and Recently Administered Medications Times are shown in CDT. Scheduled Medication Order 03/16/2025 03/17/2025 03/18/2025 prochlorperazine (COMPAZINE) injection 10 mg (COMPLETED) 10 mg, Intravenous, Once, 1 dose, On Sun03/18/25 at 1830, If giving IV, administer diluted or undiluted by slow IV push at a maximum rate of 5 mg/minute. To reduce the risk of hypotension the patient must remain lying down and be observed for 30 minutes after receiving the medication. IM administration: Outer gluteal muscle 1906 (Given - Provid er: Mere Tang RN) sodium chloride 0.9% bolus infusion 1,500 mL (COMPLETED) 1,500 mL, Intravenous, Administer over 60 Minutes, Once, 1 dose, On Sun03/18/25 at 1830 1907 (New Bag - Prov ider: Mere Tang RN)2006 (Due: Infusion Stop Time - Provider: Mere Tang RN) documented in this encounter Care Teams Fruit Dryer Relationship Specialty Start Date End Date Terrie Forde NP [address] [place] [address] PCP - General Nurse Practitioner Family 10/31/24 documented as of this encounter
--- OUTSIDE RECORDS SUMMARY | 2025-03-18 20:21 | XMS_ITS | Encounter Summary ---
Author Organization [facility] Address [address] [place] [address] Care Team Providers Care Soda Dialyzer Name Role Phone Terrie Forde AUTOMOTIVE SPECIALTY TECHNICIAN Primary Care Provider +1- [phone] Encounter Details Date Type Department Care Team (Latest Contact Info) Description 03/18/2025 Travel Social History Tobacco Use Types Packs/Day Years Used Date Smoking Tobacco: Former Cigarettes Smokeless Tobacco: Never Alcohol Use Standard Drinks/Week Comments Not Currently 0 (1 standard drink = 0.6 oz pur e alcohol) social Estimated Date of Delivery Comme nts Yes 10/30/2025 Sex and Gender Information Value Date Recorded Sex Assigned at Female 10/31/2024 7:30 PM REGULATORY SPECIALIST Legal Sex Female 7:07 PM REGULATORY SPECIALIST Gender Identity Female 03/14/2025 9:18 PM CDT Sexual Orientation Straight 03/14/2025 9: 18 PM CDT documented as of this encounter Functional Status * Calculated C-SSRS Risk Score (Lifetime/Recent) Answer Date of Assessment Author Status No Risk Indicated 03/18/2025 6:44 PM CDT Katie Hernandez RN Active * [place] Suicide Severity Rating Scale (Screener/Recent Self-Report) Question [...] Ac tive documented as of this encounter Plan of Treatment Not on file documented as of this encounter Visit Diagnoses Not on filedocumented in this encounter Care Teams Soda Dialyzer Relationship Specialty Start Date End Date Terrie Forde, AUTOMOTIVE SPECIALTY TECHNICIAN [address] [place] [address] PCP - General Nurse Practitioner Family 10/31/24 documented as of this encounter
--- OUTSIDE RECORDS SUMMARY | 2025-03-18 20:22 | XMS_ITS | Clinical Summary ---
Author Organization [facility] [address] Address [address] [place] [address] Care Team Providers Care Trading Manager Name Role Phone Terrie Forde NP Primary Care Provider +1 -[phone] Allergies No known active allergies Medications dextroamphetamine- [...] patient's age to complete this topic Insurance [facility] Care Teams Trading Manager Relationship Specialty Start Date End Date Terrie Forde, POULTRY HUSBANDRY WORKER [address] [place] [address] PCP - General Family Medicine 06/05/24
--- OUTSIDE RECORDS SUMMARY | 2025-03-18 20:22 | XMS_ITS | Referral Summary ---
Author Organization [facility] [address] [facility] [address] Address [address] [place] [address] Care Team Providers Care Ticket Sales Agent Name Role Phone Terrie Forde NP Primary Care Provider +1 -[phone] Allergies No known active allergies Medications dextroamphetamine- [...] Plan of Treatment Not on file Insurance [facility] Care Teams Ticket Sales Agent Relationship Specialty Start Date End Date Terrie Forde NP [address] [place] [address] PCP - General Family Medicine 06/05/24
--- OUTSIDE RECORDS SUMMARY | 2025-03-18 20:22 | XMS_ITS | Encounter Summary ---
Author Organization [facility] Address [address] [place] [address] Care Team Providers Care Convenience Store Clerk Name Role Phone KarelyTerrie ramon Deena CERTIFIED COMPOSITES TECHNICIAN Primary Care Provider [phone]- [phone] Reason for Referral * Medication Prior Authorization - Closed Specialty Diagnoses / Procedures Referred By Philip reid Referred To Contact Diagnoses Hyperemesis gravidarum ([facility]/HCC) Timoteo Shoemaker MD [address] [place] [address] Phone: tel: fax: Referral ID Status Reason Start Date Expiration Date Visits Re quested Visits Authorized [id number] Closed 1 1 Reason for Visit * Reason Comments Vomiting preg Complications Encounter Details Date Type Department Care Team (Late st Contact Info) Description 03/16/2025 5:54 PM CDT - 03/16/2025 8:16 PM CDT Emergency [facility] Emergency Room [address] [place] [address] Lisa Sifuentes MD [address] [place] [address] Vomiting (preg); Complications Discharge Disposition: Home [...] Sex Assigned at Female 10/31/2024 7:30 PM POLICE CHIEF Legal Sex Female 7:07 PM POLICE CHIEF Gender Identity Female 03/14/2025 9:18 PM CDT [...] PM CDT Sona Burger RN Active * Hand Suicide Severity Rating Scale (Screener/Recent Self-Report) Question [...] sent through Care Everywhere. * Hyperemesis gravidarum (Iranian) documented in this encounter Medications at Time of Discharge amitriptyline (ELAVIL) 10 MG tablet Take 3 tablets (30 mg total) by mouth nightly at bedtime. amphetamine-dextroa mphetamine (ADDERALL) 20 MG tablet Take 1 tablet (20 mg total) by mouth daily. Aripiprazole 20 MG Tab Take 1 tablet by mouth daily. doxylamine-pyridoxi ne EC (DICLEGIS) 10-10 MG tabletIndications:H yperemesis gravidarum ([facility]) Take two tablets by mouth at bedtime [...] (4 tablets) per day. 15 tablet 03/16/2025 ondansetron (ZOFRAN) 4 MG tablet Take 1 [...] to patient. Patient agreeable. Discussed follow-up with ENDING MACHINE OPERATOR and return to the emergency room if worseningor persistent symptoms, patient verbalized understanding. No results [...] Clinical impression: SNOMED CT(R) 1. Hyperemesis gravidarum ([facility]) HYPEREMESIS GRAVIDARUM Disposition: Discharge TIMOTEO SHOEMAKER MD [...] here last week for the same. Patient's ENDING MACHINE OPERATOR is at [facility]. Patient states the last time she was [...] tablets) per day., Eprescribe Class: Eprescribe Pharmacy: [facility]/pharmacy #[id number] [facility] [address] (Ph #: [phone]) Follow-up: Terrie Forde NP [address] [facility] [address] Schedule an appointment as soon as possible for a visit [facility] Emergency Room [address] [facility] [address] Go to If symptoms worsen Your OBGYN Lisa Sifuentes MD 03/17/2025 06:57 [1] Past Medical History: Diagnosis Date ADHD Anxiety disorder, unspecified Depression POTS (postural orthostatic tachycardia syndrome) Schizophrenia ([facility]/HCC [facility]/HCC) [2] Past Surgical History: Procedure Laterality [...] weeks . She called her OB at [facility] who encouraged her to be seen at [...] COLOR (U) YELLOW 03/16/2025 7:52 PM CDT [facility] TRANSPARENCY CLEAR 03/16/2025 7:52 PM CDT [facility] SPECIFIC GRAVITY (U) 1.020 1.000 - 1.030 03/16/2025 7:52 PM CDT [facility] U PH 6.5 5.0 - 9.0 03/16/2025 7:52 PM CDT [facility] LEUKOCYTES (U) NEGATIVE NEGATIVE 03/16/2025 7:52 PM CDT [facility] NITRITES NEGATIVE NEGATIVE 03/16/2025 7:52 PM CDT [facility] PROTEIN RANDOM (U) TRACE(A) NEGATIVE 03/16/2025 7:52 PM CDT [facility] GLUCOSE (U) 1+(A) NEGATIVE 03/16/2025 7:52 PM CDT [facility] KETONES MG/DL (U) 3+(A) NEGATIVE 03/16/2025 7:52 PM CDT [facility] BILIRUBIN (U) NEGATIVE NEGATIVE 03/16/2025 7:52 PM CDT [facility] BLOOD (U) NEGATIVE NEGATIVE 03/16/2025 7:52 PM CDT [facility] WBC/HPF NONE SEEN 0 - 5 /HPF 03/16/2025 7:52 PM CDT [facility] RBC/HPF NONE SEEN 0 - 5 /HPF 03/16/2025 7:52 PM CDT [facility] EPI/HPF FEW /HPF 03/16/2025 7:52 PM CDT [facility] URINE SPECIMEN OBTAINED BY CLEAN CATCH PROCEDURE / Unknown 03/16/2025 7:30 PM CDT us Lisa Sifuentes MD URINE ORDERABLES Final Result Performing Organization [facility] Co de Phone Number [facility] [address] [place] [address], [place] [phone] * AMYLASE (03/16/2025 6:07 PM CDT) AMYLASE S/P/B 52 25 - 115 UNITS/L 03/16/2025 6:40 PM CDT [facility] 03/16/2025 6:07 PM CDT us Lisa Sifuentes MD LABORATORY Final Result Performing Organization Address [facility] Co de Phone Number [facility] [address] [place] [address], [place] [phone] * LIPASE (03/16/2025 6:07 PM CDT) LIPASE 28 16 - 77 UNITS/L 03/16/2025 6:40 PM CDT [facility] 03/16/2025 6:07 PM CDT us Lisa Sifuentes MD LABORATORY Final Result Performing Organization Address [facility] Co de Phone Number [facility] [address] [place] [address], [place] [phone] * (ABNORMAL) COMPREHENSIVE METABOLIC PANEL (03/16/2025 6:07 PM CDT) GLUCOSE 86 70 - 99 MG/DL 03/16/2025 6:40 PM CDT [facility] BUN 10 7 - 18 MG/DL 03/16/2025 6:40 PM T [facility] CREATININE S/P/B 0.65 0.55 - 1.02 MG/DL 03/16/2025 6:40 PM [facility] SODIUM S/P/B 134(L) 136 - 145 MMOL/L 03/16/2025 6:40 PM T [facility] POTASSIUM S/P/B 3.7 3.5 - 5.1 MMOL/L 03/16/2025 6:40 PM T [facility] CHLORIDE S/P/B 100 100 - 108 MMOL/L 03/16/2025 6:40 PM [facility] CO2 25.0 21 - 32 MMOL/L 03/16/2025 6:40 PM [facility] CALCIUM S/P/B 8.6 8.5 - 10.1 MG/DL 03/16/2025 6:40 PM [facility] BILIRUBIN TOTAL S/P/B 1.0 0.2 - 1.2 MG/DL 03/16/2025 6:40 PM [facility] TOTAL PROTEIN S/P/B 7.0 6.4 - 8.2 G/DL 03/16/2025 6:40 PM [facility] ALBUMIN S/P/B 3.5 3.4 - 5.0 G/DL 03/16/2025 6:40 PM [facility] AST 17 15 - 37 U/L 03/16/2025 6:40 PM [facility] ALT 20 14 - 55 U/L 03/16/2025 6:40 PM [facility] ALKALINE PHOSPHATASE S/P/B 59 50 - 136 U/L 03/16/2025 6:40 PM T [facility] ANION GAP 9.0 5 - 15 MMOL/L 03/16/2025 6:40 PM CDT [facility] BUN CREATININE RATIO 15.4 6 - 26 03/16/2025 6:40 PM CDT [facility] A/G RATIO 1.0 1.0 - 2.0 RATIO 03/16/2025 6:40 PM CDT [facility] GFR ESTIMATE >90 >90 ML/MIN/1.7 3 M2 03/16/2025 6:40 PM CDT [facility] Comment: NOTE: eGFR is not calculated for patients <18 years of age. This is an estimated GFR calculation using the new CKD EPI creatinine equation without race and so does not require a correction factor for race. This estimated GFR should not be used for calculating drug doses. 03/16/2025 6:07 PM CDT us Lisa Sifuentes MD LABORATORY Final Result [facility] [address] [place] [address], [place] [phone] * (ABNORMAL) CBC W/DIFF AUTOMATED (03/16/2025 6:07 PM CDT) WBC 8.54 4.4 - 11.0 x10'3/uL 03/16/2025 6:28 PM CDT [facility] RBC 4.54 4.50 - 5.10 x10'6/uL 03/16/2025 6:28 PM CDT [facility] HGB 13.3 12.3 - 15.3 G/DL 03/16/2025 6:28 PM CDT [facility] HCT 38.7 35.9 - 44.6 % 03/16/2025 6:28 PM CDT [facility] MCV 85.2 80.0 - 96.0 FL 03/16/2025 6:28 PM CDT [facility] MCH 29.3 25.3 - 30.9 PG 03/16/2025 6:28 PM CDT [facility] MCHC 34.4(H) 31.0 - 34.1 G/DL 03/16/2025 6:28 PM CDT [facility] RDW 13.2 12.4 - 15.1 % 03/16/2025 6:28 PM CDT [facility] PLT 254 151 - 353 x10'3/uL 03/16/2025 6:28 PM CDT [facility] MPV 9.9 9.6 - 12.0 FL 03/16/2025 6:28 PM CDT [facility] RBC MORPHOLOGY NORMAL 03/16/2025 6:28 PM T [facility] PLT MORPH. NORMAL 03/16/2025 6:28 PM T [facility] WBC MORPHOLOGY NORMAL 03/16/2025 6:28 PM T [facility] LYMPHOCYTES % 17.4 15.8 - 45.0 % 03/16/2025 6:28 PM T [facility] NEUTROPHILS % 74.6(H) 42.1 - 71.9 % 03/16/2025 6:28 PM CDT [facility] MONOCYTES % 6.6 5.7 - 12.5 % 03/16/2025 6:28 PM T [facility] EOSINOPHILS 0.8 0.0 - 5.6 % 03/16/2025 6:28 PM CDT [facility] BASOPHILS 0.4 0.0 - 1.3 % 03/16/2025 6:28 PM CDT [facility] ABS. NEUTROPHILS 6.37(H) 1.40 - 6.00 x10'3/uL 03/16/2025 6:28 PM CDT [facility] IMMATURE GRANS % 0.2 0.0 - 0.5 % 03/16/2025 6:28 PM CDT [facility] ABS. LYMPHOCYTES 1.49 0.80 - 4.70 x10'3/uL 03/16/2025 6:28 PM CDT [facility] 03/16/2025 6:07 PM CDT us Lisa Sifuentes MD LABORATORY Final Result [facility] [address] [place] [address], documented in this encounter Visit Diagnoses Diagnosis Hyperemesis gravidarum ([facility])- Primary Mild hyperemesis gravidarum, unspecified as to [...] RN) documented in this encounter Care Teams Convenience Store Clerk Relationship Specialty Start Date End Date Terrie Forde, GRACE [address] [place] [address] PCP - General Nurse Practitioner Family 10/31/24 documented as of this encounter
--- OUTSIDE RECORDS SUMMARY | 2025-03-18 20:22 | XMS_ITS | Clinical Summary ---
Author Organization [facility] Address [address] [place] [address] Care Team Providers Care Skin Tanner Name Role Phone KarelyTerrie ramon Deena AUTO BODY STRAIGHTENER Primary Care Provider +1- [phone] Allergies No known active allergies Medications Aripiprazole [...] Encounters Date Type Department Care Team Description 03/18/2025 6:23 PM CDT - Present Emergency [facility] Emergency Room [address] [place] [address] Donna Luu MD Sallis, Milton, MD Dehydration 03/18/2025 Travel 03/16/2025 5:54 PM CDT - 03/16/2025 8:16 PM CDT Emergency [facility] Emergency Room [address] [place] [address] Lisa Sifuentes MD Vomiting (preg); Complications Discharge Disposition: Home or Self Care (Routine Discharge) 03/16/2025 Travel 03/14/2025 9:06 PM CDT - 03/15/2025 1:03 AM CDT Emergency [facility] Emergency Room [address] [place] [address] Dequan Mae MD Vomiting Discharge Disposition: Home or Self Care (Routine Discharge) 03/14/2025 Travel 01/17/2025 7:00 PM CDT - 01/17/2025 7:56 PM CDT Emergency [facility] Emergency Room [address] [place] [address] Donna Luu MD Sore Throat Discharge Disposition: [...] Sex Assigned at Female 10/31/2024 7:30 PM 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 The information in this section might not be complete until the patient is discharged. Procedure Name Priority Date/Time Associated Diagnosis Comments COMPREHENSIVE METABOLIC PANEL STAT 03/18/2025 6:40 PM CDT CBC W/DIFF AUTOMATED STAT 03/18/2025 6:40 PM CDT URINALYSIS, AUTO, COMPLETE STAT 03/16/2025 7:30 PM [...] from Last 3 Months Results * (ABNORMAL) COMPREHENSIVE METABOLIC PANEL (03/18/2025 6:40 PM CDT) Only the most recent of3 resultswithin the time period is included. GLUCOSE 84 70 - 99 MG/DL 03/18/2025 7:02 PM CDT [facility] BUN 7 7 - 18 MG/DL 03/18/2025 7:02 PM CDT [facility] CREATININE S/P/B 0.57 0.55 - 1.02 MG/DL 03/18/2025 7:02 PM CDT [facility] SODIUM S/P/B 135(L) 136 - 145 MMOL/L 03/18/2025 7:02 PM CDT [facility] POTASSIUM S/P/B 3.3(L) 3.5 - 5.1 MMOL/L 03/18/2025 7:02 PM CDT [facility] CHLORIDE S/P/B 101 100 - 108 MMOL/L 03/18/2025 7:02 PM [facility] CO2 25.7 21 - 32 MMOL/L 03/18/2025 7:02 PM [facility] CALCIUM S/P/B 8.8 8.5 - 10.1 MG/DL 03/18/2025 7:02 PM [facility] BILIRUBIN TOTAL S/P/B 0.7 0.2 - 1.2 MG/DL 03/18/2025 7:02 PM [facility] TOTAL PROTEIN S/P/B 7.0 6.4 - 8.2 G/DL 03/18/2025 7:02 PM [facility] ALBUMIN S/P/B 3.6 3.4 - 5.0 G/DL 03/18/2025 7:02 PM [facility] AST 15 15 - 37 U/L 03/18/2025 7:02 PM [facility] ALT 20 14 - 55 U/L 03/18/2025 7:02 PM [facility] ALKALINE PHOSPHATASE S/P/B 56 50 - 136 U/L 03/18/2025 7:02 PM [facility] ANION GAP 8.3 5 - 15 MMOL/L 03/18/2025 7:02 PM [facility] BUN CREATININE RATIO 12.3 6 - 26 03/18/2025 7:02 PM [facility] A/G RATIO 1.1 1.0 - 2.0 RATIO 03/18/2025 7:02 PM [facility] GFR ESTIMATE >90 >90 ML/MIN/1.7 3 M2 03/18/2025 7:02 PM [facility] Comment: NOTE: eGFR is not calculated for patients <18 years of age. This is an estimated GFR calculation using the new CKD EPI creatinine equation without race and so does not require a correction factor for race. This estimated GFR should not be used for calculating drug doses. 03/18/2025 6:40 PM CDT Donna Luu MD LABORATORY Final Result [facility] [address] [place] [address], [place] [phone] * (ABNORMAL) CBC W/DIFF AUTOMATED (03/18/2025 6:40 PM CDT) Only the most recent of3 resultswithin the time period is included. WBC 7.28 4.4 - 11.0 x10'3/uL 03/18/2025 6:45 PM CDT [facility] RBC 4.17(L) 4.50 - 5.10 x10'6/uL 03/18/2025 6:45 PM CDT [facility] HGB 12.1(L) 12.3 - 15.3 G/DL 03/18/2025 6:45 PM CDT [facility] HCT 35.3(L) 35.9 - 44.6 % 03/18/2025 6:45 PM CDT [facility] MCV 84.7 80.0 - 96.0 FL 03/18/2025 6:45 PM CDT [facility] MCH 29.0 25.3 - 30.9 PG 03/18/2025 6:45 PM CDT [facility] MCHC 34.3(H) 31.0 - 34.1 G/DL 03/18/2025 6:45 PM CDT [facility] RDW 13.2 12.4 - 15.1 % 03/18/2025 6:45 PM CDT [facility] PLT 248 151 - 353 x10'3/uL 03/18/2025 6:45 PM CDT [facility] MPV 9.7 9.6 - 12.0 FL 03/18/2025 6:45 PM CDT [facility] RBC MORPHOLOGY NORMAL 03/18/2025 6:45 PM CDT [facility] PLT MORPH. NORMAL 03/18/2025 6:45 PM CDT [facility] WBC MORPHOLOGY NORMAL 03/18/2025 6:45 PM CDT [facility] LYMPHOCYTES % 24.6 15.8 - 45.0 % 03/18/2025 6:45 PM CDT [facility] NEUTROPHILS % 67.5 42.1 - 71.9 % 03/18/2025 6:45 PM CDT [facility] MONOCYTES % 5.9 5.7 - 12.5 % 03/18/2025 6:45 PM CDT [facility] EOSINOPHILS 1.4 0.0 - 5.6 % 03/18/2025 6:45 PM CDT [facility] BASOPHILS 0.3 0.0 - 1.3 % 03/18/2025 6:45 PM CDT [facility] ABS. NEUTROPHILS 4.92 1.40 - 6.00 x10'3/uL 03/18/2025 6:45 PM CDT [facility] IMMATURE GRANS % 0.3 0.0 - 0.5 % 03/18/2025 6:45 PM CDT [facility] ABS. LYMPHOCYTES 1.79 0.80 - 4.70 x10'3/uL 03/18/2025 6:45 PM CDT [facility] 03/18/2025 6:40 PM CDT us Donna Luu MD LABORATORY Final Result [facility] [address] [place] [address], [place] [phone] * (ABNORMAL) URINALYSIS, AUTO, COMPLETE (03/16/2025 7:30 PM CDT) Only the most recent of2 resultswithin the time period is included. COLOR (U) YELLOW 03/16/2025 7:52 PM CDT [facility] TRANSPARENCY CLEAR 03/16/2025 7:52 PM CDT [facility] SPECIFIC GRAVITY (U) 1.020 1.000 - 1.030 03/16/2025 7:52 PM CDT [facility] U PH 6.5 5.0 - 9.0 03/16/2025 7:52 PM CDT [facility] LEUKOCYTES (U) NEGATIVE NEGATIVE 03/16/2025 7:52 PM CDT [facility] NITRITES NEGATIVE NEGATIVE 03/16/2025 7:52 PM CDT [facility] PROTEIN RANDOM (U) TRACE(A) NEGATIVE 03/16/2025 7:52 PM CDT [facility] GLUCOSE (U) 1+(A) NEGATIVE 03/16/2025 7:52 PM CDT [facility] KETONES MG/DL (U) 3+(A) NEGATIVE 03/16/2025 7:52 PM CDT [facility] BILIRUBIN (U) NEGATIVE NEGATIVE 03/16/2025 7:52 PM CDT [facility] BLOOD (U) NEGATIVE NEGATIVE 03/16/2025 7:52 PM CDT [facility] WBC/HPF NONE SEEN 0 - 5 /HPF 03/16/2025 7:52 PM CDT [facility] RBC/HPF NONE SEEN 0 - 5 /HPF 03/16/2025 7:52 PM CDT [facility] EPI/HPF FEW /HPF 03/16/2025 7:52 PM CDT [facility] URINE SPECIMEN OBTAINED BY CLEAN CATCH PROCEDURE / Unknown 03/16/2025 7:30 PM CDT us Lisa Sifuentes MD URINE ORDERABLES Final Result Performing Organization Address City/[facility]/ZIP Co de Phone Number [facility] [address] [place] [address], [place] [phone] * AMYLASE (03/16/2025 6:07 PM CDT) AMYLASE S/P/B 52 25 - 115 UNITS/L 03/16/2025 6:40 PM CDT [facility] 03/16/2025 6:07 PM CDT us Lisa Sifuentes MD LABORATORY Final Result Performing Organization Address City/[facility]/ZIP Co de Phone Number [facility] [address] [place] [address], [place] [phone] * LIPASE (03/16/2025 6:07 PM CDT) LIPASE 28 16 - 77 UNITS/L 03/16/2025 6:40 PM CDT [facility] 03/16/2025 6:07 PM CDT us Lisa Sifuentes MD LABORATORY Final Result Performing Organization Address City/[facility]/ZIP Co de Phone Number [facility] [address] [place] [address], [place] [phone] * US OB <14WKS TA+TV (03/14/2025 11:02 [...] 11:39 PM Narrative 03/14/2025 11:48 PM CDT [facility] [address] [facility] [place] [address] EXAM: US OB <14WKS TA+TV CLINICAL INFORMATION: [...] viable intrauterine with heart rate 144 bpm. Carlyss-rump measurement is 12.49 cm corresponding to a [...] Procedure Note Naina Fofana MD - 03/14/2025 [facility] [address] [place] [address] EXAM: US OB <14WKS TA+TV CLINICAL INFORMATION: [...] viable intrauterinepregnancy with heart rate 144 bpm. Carlyss-rump measurement is 12.49cm corresponding to a 7 [...] By: Naina Fofana MD, 03/14/2025 11:39 PM Dequan Mae MD ULTRASOUND Fi nal Result * BLOOD TYPING, ABO AND RH (03/14/2025 9:33 PM CDT) ABO/RH O POSITIVE 03/14/2025 10:32 PM CDT [facility] 03/14/2025 9:33 PM CDT Dequan Mae MD BLOOD BANK TEST OR DERABLES Final Result [facility] [address] [place] [address], * (ABNORMAL) Quantitative HCG (03/14/2025 9:27 PM CDT) HCG QUANTITATIVE 109,133(H ) 0 - 6 MIU/ML 03/14/2025 10:36 PM CDT [facility] Comment: WEEKS OF REFERENCE RANGES NON- FEMALE 0-6 0.2 - 1 5 - 50 1 - 2 50 - 500 2 - 3 100 - 5000 3 - 4 500 - 10,000 4 - 5 1000 - 50,000 5 - 6 10,000 - 100,000 6 - 8 15,000 - 200,000 2 - 3 MONTHS 10,000 - 100,000 03/14/2025 9:27 PM CDT Dequan Mae MD LABORATORY Fi nal Result Performing Organization Address City/[facility]/ZIP Co de Phone Number [facility] [address] [place] [address], [place] [phone] * TEST URINE (01/17/2025 7:19 PM CDT) URINE HCG TEST NEGATIVE NEGATIVE 01/17/2025 7:36 PM CDT [facility] Comment: VERY DILUTE URINE SPECIMENS MAY NOT CONTAIN SHRINK PIT SUPERVISOR LEVELS OF HCG. IF IS STILL SUSPECTED, A SERUM HCG TEST IS RECOMMENDED. URINE SPECIMEN FROM URETHRA / Unknown 01/17/2025 7:19 PM CDT us Donna Luu MD URINE ORDERABLES Final Resul t Performing Organization Address [facility] Co de Phone Number [facility] [address] [place] [address], [place] [phone] * INFLUENZA A & B (01/17/2025 7:08 PM CDT) SPECIMEN TYPE NASOPHARYNX 01/17/2025 7:39 PM CDT [facility] INFLUENZA A NEGATIVE NEGATIVE 01/17/2025 7:39 PM CDT [facility] INFLUENZA B NEGATIVE NEGATIVE 01/17/2025 7:39 PM CDT [facility] NASAL STRUCTURE / Unknown 01/17/2025 7:08 PM CDT us Donna Luu MD MICROBIOLOGY - GENERAL ORDER ARUNA Final Result Performing Organization Address City/[facility]/ZIP Co de Phone Number [facility] [address] [place] [address], [place] [phone] * STREP A RAPID (01/17/2025 7:08 PM CDT) RAPID STREP TEST NEGATIVE NEGATIVE 01/17/2025 7:39 PM CDT [facility] STRUCTURE OF ANTERIOR PORTION OF NECK / Unknown 01/17/2025 7:08 PM CDT us Donna Luu MD MICROBIOLOGY - GENERAL ORDER ARUNA Final Result [facility] [address] [place] [address], [place] [phone] from Last 3 Months Insurance [employer] Care Teams Skin Tanner Relationship Specialty Start Date End Date Terrie Forde NP [address] [place] [address] PCP - General Nurse Practitioner Family 10/31/24
== END 2025-03-18 20:23 | disposition left against medical advice (07) ==
LOC: ANHED 20:19
PROVIDERS: PCP Nurse Practitioner Family
DX: R11.2 Nausea with vomiting, unspecified (principal)
CPT/HCPCS: 99199

== ENCOUNTER 2025-05-02 12:47 | Outpatient (CLI) | payer SELFPAY ==
--- OUTSIDE RECORDS SUMMARY | 2025-05-02 12:51 | XMS_ITS | Clinical Summary ---
Author Organization [facility] Address [address] [place] [address] Care Team Providers Care Electronic Engineering Draftsperson Name Role Phone Terrie Forde Deena MOBILE PRODUCT MANAGER Primary Care Provider +1- [phone] Allergies No known active allergies Medications Aripiprazole [...] for Nausea. 20 tablet 01/18/20 25 Active amphetamine-dextro amphetamine (ADDERALL) 20 MG tablet Take 1 tablet (20 mg total) by mouth daily. Active amitriptyline (ELAVIL) 10 MG tablet Take 3 tablets (30 mg total) by mouth nightly at bedtime. Active doxylamine-pyridox ine EC (DICLEGIS) 10-10 MG tabletIndications: Hyperemesis gravidarum (HHS/HCC) Take two tablets by mouth [...] (4 tablets) per day. 15 tablet 03/16/20 25 Active prochlorperazine (COMPAZINE) 10 MG tablet Take 1 tablet (10 mg total) by mouth every 8 (eight) hours as needed (Last line for nausea and vomiting in ). 30 tablet 1 03/15/20 25 025 Active Problems Problem Noted Date Diagnosed Date Syncope and collapse 07/04/2024 Estimated Date of Delivery Comme nts Yes 10/30/2025 Encounters Date Type Department Care Team Description 03/25/2025 6:22 PM CDT - 03/25/2025 7:56 PM CDT Emergency [facility] Emergency Room [address] [place] [place] [id number] Delon Swan MD Harp, Jordan, MD Vomiting Discharge Disposition: Home or Self Care (Routine Discharge) 03/19/2025 7:11 PM CDT - 03/19/2025 9:33 PM CDT Emergency [facility] Emergency Room [address] [place] [address] Ventura Ballesteros MD Vomiting Discharge Disposition: Home or Self Care (Routine Discharge) 03/19/2025 Travel 03/18/2025 6:23 PM CDT - 03/18/2025 9:02 PM CDT Emergency [facility] Emergency Room [address] [place] [address] Donna Luu MD Sallis, Milton, MD Dehydration Discharge Disposition: Home or Self Care (Routine Discharge) 03/18/2025 Travel 03/16/2025 5:54 PM CDT - 03/16/2025 8:16 PM CDT Emergency [facility] Emergency Room [address] [place] [address] Lisa Sifuentes MD Vomiting (preg); Complications Discharge Disposition: Home or Self Care (Routine Discharge) 03/16/2025 Travel 03/14/2025 9:06 PM CDT - 03/15/2025 1:03 AM CDT Emergency [facility] Emergency Room [address] [place] [address] Dequan Mae MD Vomiting Discharge Disposition: Home or Self Care (Routine Discharge) 03/14/2025 Travel from Last 3 Months Immunizations Immunization [...] Sex Assigned at Female 10/31/2024 7:30 PM 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 Legal Sex Female 7:07 PM 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 Gender Identity Female 03/14/2025 9:18 PM CDT Sexual Orientation Straight 03/14/2025 9: 18 PM CDT Last Filed Vital Signs Vital Sign Reading Time Taken Comments Blood Pressure 112/74 03/25/2025 7:50 PM CDT Pulse 86 03/25/2025 7:50 PM CDT Temperature 36.2 C (97.1 F) 03/25/2025 7:50 PM CDT Respiratory Rate 16 03/25/2025 7:50 PM CDT Oxygen Saturation 99% 03/25/2025 7:50 PM CDT Inhaled Oxygen Concentration - - Weight 61 kg (134 lb 7.7 oz) 03/25/2025 6:25 PM CDT Height 157.5 cm (5' 2) 03/25/2025 6:25 PM CDT Body Mass Index 24.6 03/25/2025 6:25 PM CDT Plan of Treatment Health Maintenance [...] Associated Diagnosis Comments URINALYSIS, AUTO, COMPLETE STAT 03/19/2025 8:16 PM CDT COMPREHENSIVE METABOLIC PANEL STAT 03/19/2025 7:38 PM CDT CBC W/DIFF AUTOMATED STAT 03/19/2025 7:38 PM CDT COMPREHENSIVE METABOLIC PANEL STAT 03/18/2025 6:40 PM [...] W/DIFF AUTOMATED STAT 03/14/2025 9:12 PM CDT from Last 3 Months Results * (ABNORMAL) Urinalysis, Auto, Complete (03/19/2025 8:16 PM CDT) Only the most recent of3 resultswithin the time period is included. COLOR (U) YELLOW 03/19/2025 8:47 PM CDT [facility] TRANSPARENCY CLEAR 03/19/2025 8:47 PM CDT [facility] SPECIFIC GRAVITY (U) 1.010 1.000 - 1.030 03/19/2025 8:47 PM CDT [facility] U PH 7.0 5.0 - 9.0 03/19/2025 8:47 PM CDT [facility] LEUKOCYTES (U) NEGATIVE NEGATIVE 03/19/2025 8:47 PM CDT [facility] NITRITES NEGATIVE NEGATIVE 03/19/2025 8:47 PM CDT [facility] PROTEIN RANDOM (U) NEGATIVE NEGATIVE 03/19/2025 8:47 PM CDT [facility] GLUCOSE (U) 3+(A) NEGATIVE 03/19/2025 8:47 PM CDT [facility] KETONES MG/DL (U) 2+(A) NEGATIVE 03/19/2025 8:47 PM CDT [facility] BILIRUBIN (U) NEGATIVE NEGATIVE 03/19/2025 8:47 PM CDT [facility] BLOOD (U) NEGATIVE NEGATIVE 03/19/2025 8:47 PM CDT [facility] WBC/HPF 0-5 0 - 5 /HPF 03/19/2025 8:47 PM CDT [facility] RBC/HPF 0-5 0 - 5 /HPF 03/19/2025 8:47 PM CDT [facility] EPI/HPF RARE /HPF 03/19/2025 8:47 PM CDT [facility] URINE SPECIMEN OBTAINED BY CLEAN CATCH PROCEDURE / Unknown 03/19/2025 8:16 PM CDT us Ventura Ballesteros MD URINE ORDERABLES Final Result [facility] [address] [place] [address], [place] [phone] * (ABNORMAL) COMPREHENSIVE METABOLIC PANEL (03/19/2025 7:38 PM CDT) Only the most recent of4 resultswithin the time period is included. GLUCOSE 81 70 - 99 MG/DL 03/19/2025 8:01 PM CDT [facility] BUN 7 7 - 18 MG/DL 03/19/2025 8:01 PM CDT [facility] CREATININE S/P/B 0.49(L) 0.55 - 1.02 MG/DL 03/19/2025 8:01 PM CDT [facility] SODIUM S/P/B 134(L) 136 - 145 MMOL/L 03/19/2025 8:01 PM T [facility] POTASSIUM S/P/B 3.3(L) 3.5 - 5.1 MMOL/L 03/19/2025 8:01 PM CDT [facility] CHLORIDE S/P/B 102 100 - 108 MMOL/L 03/19/2025 8:01 PM [facility] CO2 24.4 21 - 32 MMOL/L 03/19/2025 8:01 PM [facility] CALCIUM S/P/B 8.7 8.5 - 10.1 MG/DL 03/19/2025 8:01 PM [facility] BILIRUBIN TOTAL S/P/B 0.9 0.2 - 1.2 MG/DL 03/19/2025 8:01 PM [facility] TOTAL PROTEIN S/P/B 6.9 6.4 - 8.2 G/DL 03/19/2025 8:01 PM [facility] ALBUMIN S/P/B 3.5 3.4 - 5.0 G/DL 03/19/2025 8:01 PM [facility] AST 15 15 - 37 U/L 03/19/2025 8:01 PM [facility] ALT 21 14 - 55 U/L 03/19/2025 8:01 PM [facility] ALKALINE PHOSPHATASE S/P/B 55 50 - 136 U/L 03/19/2025 8:01 PM [facility] ANION GAP 7.6 5 - 15 MMOL/L 03/19/2025 8:01 PM [facility] BUN CREATININE RATIO 14.3 6 - 26 03/19/2025 8:01 PM [facility] A/G RATIO 1.0 1.0 - 2.0 RATIO 03/19/2025 8:01 PM [facility] GFR ESTIMATE >90 >90 ML/MIN/1.7 3 M2 03/19/2025 8:01 PM [facility] Comment: NOTE: eGFR is not calculated for patients <18 years of age. This is an estimated GFR calculation using the new CKD EPI creatinine equation without race and so does not require a correction factor for race. This estimated GFR should not be used for calculating drug doses. 03/19/2025 7:38 PM CDT Ventura Ballesteros MD LABORATORY Final Result [facility] [address] [place] [address], * (ABNORMAL) CBC W/DIFF AUTOMATED (03/19/2025 7:38 PM CDT) Only the most recent of4 resultswithin the time period is included. WBC 7.38 4.4 - 11.0 x10'3/uL 03/19/2025 7:48 PM CDT [facility] RBC 4.21(L) 4.50 - 5.10 x10'6/uL 03/19/2025 7:48 PM CDT [facility] HGB 12.2(L) 12.3 - 15.3 G/DL 03/19/2025 7:48 PM CDT [facility] HCT 35.5(L) 35.9 - 44.6 % 03/19/2025 7:48 PM CDT [facility] MCV 84.3 80.0 - 96.0 FL 03/19/2025 7:48 PM CDT [facility] MCH 29.0 25.3 - 30.9 PG 03/19/2025 7:48 PM CDT [facility] MCHC 34.4(H) 31.0 - 34.1 G/DL 03/19/2025 7:48 PM CDT [facility] RDW 13.2 12.4 - 15.1 % 03/19/2025 7:48 PM CDT [facility] PLT 251 151 - 353 x10'3/uL 03/19/2025 7:48 PM CDT [facility] MPV 9.7 9.6 - 12.0 FL 03/19/2025 7:48 PM CDT [facility] RBC MORPHOLOGY NORMAL 03/19/2025 7:48 PM CDT [facility] PLT MORPH. NORMAL 03/19/2025 7:48 PM CDT [facility] WBC MORPHOLOGY NORMAL 03/19/2025 7:48 PM CDT [facility] LYMPHOCYTES % 26.0 15.8 - 45.0 % 03/19/2025 7:48 PM CDT [facility] NEUTROPHILS % 65.3 42.1 - 71.9 % 03/19/2025 7:48 PM CDT [facility] MONOCYTES % 6.6 5.7 - 12.5 % 03/19/2025 7:48 PM CDT [facility] EOSINOPHILS 1.5 0.0 - 5.6 % 03/19/2025 7:48 PM CDT [facility] BASOPHILS 0.3 0.0 - 1.3 % 03/19/2025 7:48 PM CDT [facility] ABS. NEUTROPHILS 4.82 1.40 - 6.00 x10'3/uL 03/19/2025 7:48 PM CDT [facility] IMMATURE GRANS % 0.3 0.0 - 0.5 % 03/19/2025 7:48 PM CDT [facility] ABS. LYMPHOCYTES 1.92 0.80 - 4.70 x10'3/uL 03/19/2025 7:48 PM CDT [facility] 03/19/2025 7:38 PM CDT Ventura Ballesteros MD LABORATORY Final Result Performing Organization Address City/[facility]/ZIP Co de Phone Number [facility] [address] [place] [address], [place] [phone] * AMYLASE (03/16/2025 6:07 PM CDT) AMYLASE S/P/B 52 25 - 115 UNITS/L 03/16/2025 6:40 PM CDT [facility] 03/16/2025 6:07 PM CDT us Lisa Sifuentes MD LABORATORY Final Result Performing Organization Address [facility] Co de Phone Number [facility] [address] [place] [address], [place] [phone] * LIPASE (03/16/2025 6:07 PM CDT) LIPASE 28 16 - 77 UNITS/L 03/16/2025 6:40 PM CDT [facility] 03/16/2025 6:07 PM CDT us Lisa Sifuentes MD LABORATORY Final Result Performing Organization Address City/[facility] Co de Phone Number [facility] [address] [place] [address], [place] [phone] * US OB <14WKS TA+TV (03/14/2025 11:02 [...] 11:39 PM Narrative 03/14/2025 11:48 PM CDT [facility] [address] [place] [address] EXAM: US OB <14WKS TA+TV CLINICAL INFORMATION: [...] viable intrauterine with heart rate 144 bpm. Lybrook-rump measurement is 12.49 cm corresponding to a [...] Procedure Note Naina Fofana MD - 03/14/2025 [facility] [address] [place] [address] EXAM: US OB <14WKS TA+TV CLINICAL INFORMATION: [...] viable intrauterinepregnancy with heart rate 144 bpm. Lybrook-rump measurement is 12.49cm corresponding to a 7 [...] ABO/RH O POSITIVE 03/14/2025 10:32 PM CDT [facility] 03/14/2025 9:33 PM CDT Dequan Mae MD BLOOD BANK TEST OR DERABLES Final Result Performing Organization Address [facility] Co de Phone Number [facility] [address] [place] [address], [place] [phone] * (ABNORMAL) Quantitative HCG (03/14/2025 9:27 PM CDT) HCG QUANTITATIVE 109,133(H ) 0 - 6 MIU/ML 03/14/2025 10:36 PM CDT [facility] Comment: WEEKS OF REFERENCE RANGES [...] LABORATORY Fi nal Result Performing Organization Address City/[facility]/ZIP Co de Phone Number [facility] [address] [place] [address], [place] [phone] from Last 3 Months Insurance [employer] Care Teams Electronic Engineering Draftsperson Relationship Specialty Start Date End Date Terrie Forde, MOBILE PRODUCT MANAGER [address] [place] [address] PCP - General Nurse Practitioner Family 10/31/24
--- OUTSIDE RECORDS SUMMARY | 2025-05-02 12:51 | XMS_ITS | Patient Health Record ---
Author Organization [facility] Address [address] [facility] [place] [address] Care Team Providers Care Clothes Separator Name Role Phone Dr. Ja Malik Primary Care Provider [phone] Reason For Referral No Information Immunizations Vaccine Route Administration Date Status Comme nts COVID 19 (Pfizer) Dose 1 IM Intramuscular 05/25/2021 Admin istered COVID 19 (Pfizer) Dose 2 IM Intramuscular 06/15/2021 Admin istered Plan Of Treatment No Information Insurance Providers Payer Name Payer Address Payer Phone Subscriber Number Group Number Insured Name Patient Relationship to Insured Coverage Start Date Coverage End Date MEDICAID [place]IC [address] [place] [phone] [id number] Tyree Gilbert Self - patient is the insured
== END 2025-05-02 12:48 | disposition home or self-care (01) ==
LOC: ANHLAB 12:49
PROVIDERS: PCP Nurse Practitioner Family; Visit Provider Obstetrics & Gynecology
DX: Z31.430 Encounter of female for testing for genetic disease carrier status for procreative management (principal)
CPT/HCPCS: 36415

== ENCOUNTER 2025-05-16 13:33 | Outpatient (CLI) | payer OTHER, SELFPAY ==
[2025-05-16 14:16] LABS: Alanine Aminotransferase 8 U/L (6-35); Albumin Level 3.8 g/dL (3.5-5.1); Alkaline Phosphatase 57 U/L (38-126); Anion Gap 6 mmol/L (4-12); Aspartate Amino Transferase 20 U/L (14-36); Bilirubin,Total 0.7 mg/dL (0.2-1.3); Blood Urea Nitrogen 5 mg/dL (7-17); Calcium 8.9 mg/dL (8.4-10.2); Carbon Dioxide 25 mmol/L (22-30); Chloride 104 mmol/L (98-107); Estimated Glomerular Filt Rate > 60; Glucose 84 mg/dL (65-110); Potassium 4.0 mmol/L (3.4-5.0); Sodium 135 mmol/L (137-145); Total Protein 7.1 g/dL (6.3-8.2)
[2025-05-23 01:07] LABS: Total Bile Acids 1.6 umol/L (.)
== END 2025-05-16 13:34 | disposition home or self-care (01) ==
LOC: ANHLAB 13:34
PROVIDERS: PCP Nurse Practitioner Family; Visit Provider Obstetrics & Gynecology
DX: L29.9 Pruritus, unspecified (principal)
CPT/HCPCS: 36415; 80053; 82542

== ENCOUNTER 2025-08-13 19:38 | Observation (INO) | payer OTHER, SELFPAY ==
--- OUTSIDE RECORDS SUMMARY | 2025-08-13 19:48 | XMS_ITS | Patient Health Record ---
Author Organization [facility] Address [address] [facility] [place] [address] Care Team Providers Care Sales Order Clerk Name Role Phone Dr. Ja Malik Primary Care Provider [phone] Reason For Referral No Information Immunizations Vaccine [...] Date MEDICAID BASIC [address] [place] [phone] [id number] Tyree Gilbert Self - patient is the insured
--- OUTSIDE RECORDS SUMMARY | 2025-08-13 19:48 | XMS_ITS | Clinical Summary ---
Author Organization [facility] Address [address] [place] [address] Care Team Providers Care Patent Prosecution Attorney Name Role Phone Terrie Forde Deena SENIOR BUSINESS MANAGER Primary Care Provider [phone]- [phone] Allergies No known active allergies Medications Aripiprazole 20 MG Tab Take 1 tablet by mouth daily. Active sertraline (ZOLOFT) 100 MG tablet Take 1.5 tablets (150 mg total) by mouth daily. Active ondansetron (ZOFRAN) 4 MG tablet Take 1 tablet (4 mg total) by mouth every 8 (eight) hours as needed for Nausea. 12 tablet 5 Active ondansetron (ZOFRAN-ODT) 4 MG disintegrating tablet Take 1 tablet (4 mg total) by mouth every 8 (eight) hours as needed for Nausea. 20 tablet 5 Active amphetamine-dextro amphetamine (ADDERALL) 20 MG tablet [...] mg (4 tablets) per day. 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 Gender Identity Female 03/14/2025 9:18 PM CDT [...] 3-dose series) 2021 COVID-19 Vaccine (1 - 2024-2 6 season) 2025 Influenza Adult (#1) 2025 RSV Immunization or 60+ Years (1 - Risk 1-dose series) 09/04/2025 DTaP, Tdap and Td Vaccines ( 2 - Td or Tdap) 04/12/2034 04/12/2024 Hepatitis A Vaccines Aged Out No long er eligible based on patient's age to complete this topic Meningococcal Vaccine Aged Out No kellen lexie [...] patient's age to complete this topic Insurance [facility] [address] Care Teams Patent Prosecution Attorney Relationship Specialty Start Date End Date Terrie Forde, GRACE [address] [place] [address] PCP - General Nurse Practitioner Family 10/31/24
[2025-08-13 20:00] VITALS: BP 111/70; PULSE 131
[2025-08-13 20:11] LABS: Add Urine Microscopic? YES; Appearance Urine Turbid (Clear); Glucose Urine UA Negative (Negative); Leukocyte Esterase Ur 1+ LEU/UL (Negative); Nitrate Urine Negative (Negative); Non Pathogenic Casts 0-2; Specific Grav Ur 1.026 (1.001-1.035)
[2025-08-13 20:15] VITALS: BP 111/77; PULSE 104
--- NOTE | 2025-08-16 23:19 | PM.OBTRLD ---
OB - Triage/Final Diagnosis Visit Information Comments/Additional reasons for admission: I have assessed the risk for this patient, Tyree Gilbert, and determined that she would benefit from observation care. Evaluation Laboratory results: Laboratory Tests 08/13/25 19:54 Urine Color Yellow Urine Appearance Turbid H Urine pH 7.0 Ur Specific [place] 1.026 Urine Protein 1+ H Urine Glucose (UA) Negative Urine Ketones Trace H Ur Blood (Man) Negative Urine Nitrate Negative Urine Bilirubin Negative Urine Urobilinogen 1.0 Leukocyte Esterase Rfl 1+ H Urine RBC 0-2 Urine WBC 6-10 H Ur Squamous Epith Cells Moderate Urine Bacteria Rare Urine Casts 0-2 Final Diagnosis (1) Decreased movement: Code(s): O36.8190 - Decreased movements, unspecified trimester, not applicable or unspecified Status: Acute
== END 2025-08-13 20:35 | disposition home or self-care (01) ==
PROVIDERS: Admitting Provider Obstetrics & Gynecology; PCP Nurse Practitioner Family; Visit Provider Obstetrics & Gynecology
DX: O36.8131 Decreased fetal movements, third trimester, fetus 1 (principal); Z3A.28 28 weeks gestation of pregnancy
CPT/HCPCS: 59025; 81001; G0378; G0379

== ENCOUNTER 2025-08-14 15:51 | Outpatient (CLI) | payer OTHER, SELFPAY ==
--- OUTSIDE RECORDS SUMMARY | 2025-08-14 16:00 | XMS_ITS | Clinical Summary ---
Author Organization [facility] [address] Address [address] [place] [address] Care Team Providers Care And Rescue Fire Fighter Crash Fire Name Role Phone Terrie Forde NP Primary Care Provider [phone] -[phone] Allergies No known active allergies Medications dextroamphetamine- [...] patient's age to complete this topic Insurance [facility] Care Teams And Rescue Fire Fighter Crash Fire Relationship Specialty Start Date End Date Terrie Forde, PIPE STRAIGHTENER [address] [place] [address] PCP - General Family Medicine 06/05/24
--- OUTSIDE RECORDS SUMMARY | 2025-08-14 16:00 | XMS_ITS | Data Portability ---
Author Organization [facility] Tico Quintana rhys [place] Address [address] [place] [address] Assessment No assessment recorded. Plan of Treatment Reminders Order Date Submit Date Provider Last Modified By Organization Details Last Modified Time Details Appointments None recorded. Lab urinalysis complete, reflex culture 2021 022 [email or web address] 4 [facility], [address] [place], [address], 11:50:49 Referral None recorded. Procedures None recorded. Surgeries None recorded. Imaging None recorded. Medication Orders sertraline 25 mg tablet 2021 022 YORDAN [id number], [address] [place], [address], 15:46:35 Keflex 500 mg capsule 2021 022 layne [id number], [address] [place], [address], 16:54:37 Patient TargetsNo targets recorded. Patient InstructionsNo instructions recorded. Reason for Referral None Reported. Results Created Date Observation Date Name Description Value Unit Range Abnormal Flag Note LastModifiedBy Organization Detail LastModifiedTime 02/09/2002/08/2022 URINA LYSIS W/KARLEY CULT IF IND pH urine 7.0 5.0-8. 0 Not Available [facility] [address] [place], [address], 02/08/2022 16:30:00 02/09/20 22 02/08/2022 URINA LYSIS W/KARLEY CULT IF IND specific gravity urine <=1.00 5 1.003- 1.025 Not Available [facility] [address], [place], [address], 02/08/2022 16:30:00 02/09/20 22 02/08/2022 URINA LYSIS W/KARLEY CULT IF IND protein urine 2+ negati ve abnormal Not Available [facility] [address], [place], [address], 02/08/2022 16:30:00 02/09/20 22 02/08/2022 URINA LYSIS W/KARLEY CULT IF IND glucose urine UA Negati ve negati ve Not Available [facility] [address], [place], [address], 02/08/2022 16:30:00 02/09/20 22 02/08/2022 URINA LYSIS W/KARLEY CULT IF IND ketones urine Negati ve negati ve Not Available [facility] [address], [place], [address], 02/08/2022 16:30:00 02/09/20 22 02/08/2022 URINA LYSIS W/KARLEY CULT IF IND urine blood 3+ negati ve abnormal Not Available [facility] [address], [place], [address], 02/08/2022 16:30:00 02/09/20 22 02/08/2022 URINA LYSIS W/KARLEY CULT IF IND nitrite urine Negati ve negati ve Not Available [facility] [address], [place], [address], 02/08/2022 16:30:00 02/09/20 22 02/08/2022 URINA LYSIS W/KARLEY CULT IF IND bilirubin urine 1+ negati ve abnormal Not Available [facility] [address], [place], [address], 02/08/2022 16:30:00 02/09/20 22 02/08/2022 URINA LYSIS W/KARLEY CULT IF IND leukocyte esterase urine 2+ negati ve abnormal Not Available [facility] [address], [place], [address], 02/08/2022 16:30:00 02/09/20 22 02/08/2022 URINA LYSIS W/KARLEY CULT IF IND pH urine 7.0 5.0-8. 0 Not Available [facility] [address], [place], [address], 02/08/2022 16:32:31 02/09/20 22 02/08/2022 URINA LYSIS W/KARLEY CULT IF IND specific gravity urine <=1.00 5 1.003- 1.025 Not Available [facility] [address], [place], [address], 02/08/2022 16:32:31 02/09/20 22 02/08/2022 URINA LYSIS W/KARLEY CULT IF IND protein urine 2+ negati ve abnormal Not Available [facility] [address], [place], [address], 02/08/2022 16:32:31 02/09/20 22 02/08/2022 URINA LYSIS W/KARLEY CULT IF IND glucose urine UA Negati ve negati ve Not Available [facility] [address], [place], [address], 02/08/2022 16:32:31 02/09/20 22 02/08/2022 URINA LYSIS W/KARLEY CULT IF IND ketones urine Negati ve negati ve Not Available [facility] [address], [place], [address], 02/08/2022 16:32:31 02/09/20 22 02/08/2022 URINA LYSIS W/KARLEY CULT IF IND urine blood 3+ negati ve abnormal Not Available [facility] [address], [place], [address], 02/08/2022 16:32:31 02/09/20 22 02/08/2022 URINA LYSIS W/KARLEY CULT IF IND nitrite urine Negati ve negati ve Not Available [facility] [address], [place], [address], 02/08/2022 16:32:31 02/09/20 22 02/08/2022 URINA LYSIS W/KARLEY CULT IF IND bilirubin urine 1+ negati ve abnormal Not Available [facility] [address], [place], [address], 02/08/2022 16:32:31 02/09/20 22 02/08/2022 URINA LYSIS W/KARLEY CULT IF IND leukocyte esterase urine 2+ negati ve abnormal Not Available [facility] [address], [place], [address], 02/08/2022 16:32:31 02/09/20 22 02/08/2022 URINA LYSIS W/KARLEY CULT IF IND RBC urine 50 - 100 /hpf 0 - 2 abnormal Not Available [facility] [address], [place], [address], 02/08/2022 16:32:31 02/09/20 22 02/08/2022 URINA LYSIS W/KARLEY CULT IF IND WBC urine 20 - 50 /hpf none seen abnormal Not Available [facility] [address], [place], [address], 02/08/2022 16:32:31 02/09/20 22 02/08/2022 URINA LYSIS W/KARLEY CULT IF IND squamous epithelial cell urine Few few Not Available [facility] [address], [place], [address], 02/08/2022 16:32:31 02/09/20 22 02/08/2022 URINA LYSIS W/KARLEY CULT IF IND bacteria urine Trace Not Available [facility] [address], [place], [address], 02/08/2022 16:32:31 02/09/20 22 02/08/2022 SULFO SALIC YLIC ACID URINE sulfosalicyl ic acid urine 2+ by SSA negati ve abnormal Not Available [facility] [address], [place], [address], 02/08/2022 16:32:31 02/09/20 22 02/08/2022 ICTOT EST URINE ictotest urine Negati ve by Icto negati ve Not Available [facility] [address], [place], [address], 02/08/2022 16:32:32 03/16/20 22 03/16/2022 URINA LYSIS RFX KARLEY CULT IF IND pH urine 5.5 5.0-8. 0 Not Available [facility] [address], [place], [address], 03/16/2022 15:19:30 03/16/20 22 03/16/2022 URINA LYSIS RFX KARLEY CULT IF IND specific gravity urine >=1.03 0 1.003- 1.025 Not Available [facility] [address], [place], [address], 03/16/2022 15:19:30 03/16/20 22 03/16/2022 URINA LYSIS RFX KARLEY CULT IF IND protein urine Negati ve negati ve Not Available [facility] [address], [place], [address], 03/16/2022 15:19:30 03/16/20 22 03/16/2022 URINA LYSIS RFX KARLEY CULT IF IND glucose urine UA Negati ve negati ve Not Available [facility] [address], [place], [address], 03/16/2022 15:19:30 03/16/20 22 03/16/2022 URINA LYSIS RFX KARLEY CULT IF IND ketones urine Negati ve negati ve Not Available [facility] [address], [place], [address], 03/16/2022 15:19:30 03/16/20 22 03/16/2022 URINA LYSIS RFX KARLEY CULT IF IND urine blood Trace- intact negati ve abnormal Not Available [facility] [address], [place], [address], 03/16/2022 15:19:30 03/16/20 22 03/16/2022 URINA LYSIS RFX KARLEY CULT IF IND nitrite urine Negati ve negati ve Not Available [facility] [address], [place], [address], 03/16/2022 15:19:30 03/16/20 22 03/16/2022 URINA LYSIS RFX KARLEY CULT IF IND bilirubin urine Negati ve negati ve Not Available [facility] [address], [place], [address], 03/16/2022 15:19:30 03/16/20 22 03/16/2022 URINA LYSIS RFX KARLEY CULT IF IND leukocyte esterase urine Negati ve negati ve Not Available [facility] [address], [place], [address], 03/16/2022 15:19:30 03/16/20 22 03/16/2022 URINA LYSIS RFX KARLEY CULT IF IND pH urine 5.5 5.0-8. 0 Not Available [facility] [address], [place], [address], 03/16/2022 15:18:28 03/16/20 22 03/16/2022 URINA LYSIS RFX KARLEY CULT IF IND specific gravity urine >=1.03 0 1.003- 1.025 Not Available [facility] [address], [place], [address], 03/16/2022 15:18:28 03/16/20 22 03/16/2022 URINA LYSIS RFX KARLEY CULT IF IND protein urine Negati ve negati ve Not Available [facility] [address], [place], [address], 03/16/2022 15:18:28 03/16/20 22 03/16/2022 URINA LYSIS RFX KARLEY CULT IF IND glucose urine UA Negati ve negati ve Not Available [facility] [address], [place], [address], 03/16/2022 15:18:28 03/16/20 22 03/16/2022 URINA LYSIS RFX KARLEY CULT IF IND ketones urine Negati ve negati ve Not Available [facility] [address], [place], [address], 03/16/2022 15:18:28 03/16/20 22 03/16/2022 URINA LYSIS RFX KARELY CULT IF IND urine blood Trace- intact negati ve abnormal Not Available [facility] [address], [place], [address], 03/16/2022 15:18:28 03/16/20 22 03/16/2022 URINA LYSIS RFX KARLEY CULT IF IND nitrite urine Negati ve negati ve Not Available [facility] [address], [place], [address], 03/16/2022 15:18:28 03/16/20 22 03/16/2022 URINA LYSIS RFX KARLEY CULT IF IND bilirubin urine Negati ve negati ve Not Available [facility] [address], [place], [address], 03/16/2022 15:18:28 03/16/20 22 03/16/2022 URINA LYSIS RFX KARLEY CULT IF IND leukocyte esterase urine Negati ve negati ve Not Available [facility] [address], [place], [address], 03/16/2022 15:18:28 03/16/20 22 03/16/2022 URINE MICRO SCOPI C RBC urine 0 - 2 /hpf 0 - 2 Not Available [facility] [address], [place], [address], 03/16/2022 15:19:30 03/16/20 22 03/16/2022 URINE MICRO SCOPI C WBC urine 0 - 2 /hpf none seen Not Available [facility] [address], [place], [address], 03/16/2022 15:19:30 03/16/20 22 03/16/2022 URINE MICRO SCOPI C squamous epithelial cell urine Many few abnormal Not Available [facility] [address], [place], [address], 03/16/2022 15:19:30 03/16/20 22 03/16/2022 URINE MICRO SCOPI C bacteria urine 2+ Not Available [facility] [address], [place], [address], 03/16/2022 15:19:30 03/16/20 22 03/16/2022 URINE MICRO SCOPI C amorphous sediment urine Slight none seen abnormal Not Available [facility] [address], [place], [address], 03/16/2022 15:19:30 03/16/20 22 03/16/2022 URINE MICRO SCOPI C mucus urine Large none seen abnormal Not Available [facility] [address], [place], [address], 03/16/2022 15:19:30 03/16/20 22 03/16/2022 COMPL ETE BLOOD COUNT AUTO DIFF white blood count 5.6 x10_3 /uL 3.8-10 .8 normal Not Available [facility] [address], [place], [address], 03/16/2022 15:30:30 03/16/20 22 03/16/2022 COMPL ETE BLOOD COUNT AUTO DIFF red blood count 4.91 x10_6 /uL 4.20-5 .40 normal Not Available [facility] [address], [place], [address], 03/16/2022 15:30:30 03/16/20 22 03/16/2022 COMPL ETE BLOOD COUNT AUTO DIFF hemoglobin 14.5 g/dL 12.0-1 6.0 normal Not Available [facility] [address], [place], [address], 03/16/2022 15:30:30 03/16/20 22 03/16/2022 COMPL ETE BLOOD COUNT AUTO DIFF hematocrit 42.9 % 37.0-4 7.0 normal Not Available [facility] [address], [place], [address], 03/16/2022 15:30:30 03/16/20 22 03/16/2022 COMPL ETE BLOOD COUNT AUTO DIFF MCV 87.4 fL 81.0-9 9.0 normal Not Available [facility] [address], [place], [address], 03/16/2022 15:30:30 03/16/20 22 03/16/2022 COMPL ETE BLOOD COUNT AUTO DIFF MCH 29.5 pg 27.0-3 3.0 normal Not Available [facility] [address], [place], [address], 03/16/2022 15:30:30 03/16/20 22 03/16/2022 COMPL ETE BLOOD COUNT AUTO DIFF MCHC 33.8 g/dL 33.0-3 7.0 normal Not Available [facility] [address], [place], [address], 03/16/2022 15:30:30 03/16/20 22 03/16/2022 COMPL ETE BLOOD COUNT AUTO DIFF RDW 13.3 % 11.5-1 4.5 normal Not Available [facility] [address], [place], [address], 03/16/2022 15:30:30 03/16/20 22 03/16/2022 COMPL ETE BLOOD COUNT AUTO DIFF platelet count 211 x10_3 /uL 130-40 0 normal Not Available [facility] [address], [place], [address], 03/16/2022 15:30:30 03/16/20 22 03/16/2022 COMPL ETE BLOOD COUNT AUTO DIFF mean platelet volume 10.3 fL 9.6-12 .7 normal Not Available [facility] [address], [place], [address], 03/16/2022 15:30:30 03/16/20 22 03/16/2022 COMPL ETE BLOOD COUNT AUTO DIFF % neutrophils 44.9 % 42.2-7 5.2 normal Not Available [facility] [address], [place], [address], 03/16/2022 15:30:30 03/16/20 22 03/16/2022 COMPL ETE BLOOD COUNT AUTO DIFF % lymphocytes 43.5 % 20.5-5 1.1 normal Not Available [facility] [address], [place], [address], 03/16/2022 15:30:30 03/16/20 22 03/16/2022 COMPL ETE BLOOD COUNT AUTO DIFF % monocytes 8.1 % 3.1-12 .1 normal Not Available [facility] [address], [place], [address], 03/16/2022 15:30:30 03/16/20 22 03/16/2022 COMPL ETE BLOOD COUNT AUTO DIFF % eosinophils 3.0 % 0.0-5. 4 normal Not Available [facility] [address], [place], [address], 03/16/2022 15:30:30 03/16/20 22 03/16/2022 COMPL ETE BLOOD COUNT AUTO DIFF % basophils 0.5 % 0.0-2. 0 normal Not Available [facility] [address], [place], [address], 03/16/2022 15:30:30 03/16/20 22 03/16/2022 COMPL ETE BLOOD COUNT AUTO DIFF abs neutrophils 2.5 x10_3 /uL 1.4-6. 5 normal Not Available [facility] [address], [place], [address], 03/16/2022 15:30:30 03/16/20 22 03/16/2022 COMPL ETE BLOOD COUNT AUTO DIFF abs lymphocytes 2.4 x10_3 /uL 1.2-3. 4 normal Not Available [facility] [address], [place], [address], 03/16/2022 15:30:30 03/16/20 22 03/16/2022 COMPL ETE BLOOD COUNT AUTO DIFF abs monocytes 0.5 x10_3 /uL 0.1-1. 0 normal Not Available [facility] [address], [place], [address], 03/16/2022 15:30:30 03/16/20 22 03/16/2022 COMPL ETE BLOOD COUNT AUTO DIFF abs eosinophils 0.2 x10_3 /uL 0.0-0. 7 normal Not Available [facility] [address], [place], [address], 03/16/2022 15:30:30 03/16/20 22 03/16/2022 COMPL ETE BLOOD COUNT AUTO DIFF abs basophils 0.0 x10_3 /uL 0.0-0. 2 normal Not Available [facility] [address], [place], [address], 03/16/2022 15:30:30 03/16/20 22 03/16/2022 COMPR EHENS SKYE METAB OLIC PANEL sodium 143 mmol/ L 135-14 8 normal Not Available [facility] [address], [place], [address], 03/16/2022 18:37:34 03/16/20 22 03/16/2022 COMPR EHENS SKYE METAB OLIC PANEL potassium 4.7 mmol/ L 3.5-5. 2 normal Not Available [facility] [address], [place], [address], 03/16/2022 18:37:34 03/16/20 22 03/16/2022 COMPR EHENS SKYE METAB OLIC PANEL chloride 107 mmol/ L 98-108 normal Not Available [facility] [address], [place], [address], 03/16/2022 18:37:34 03/16/20 22 03/16/2022 COMPR EHENS SKYE METAB OLIC PANEL carbon dioxide 28 mmol/ L 24-33 normal Not Available [facility] [address], [place], [address], 03/16/2022 18:37:34 03/16/20 22 03/16/2022 COMPR EHENS SKYE METAB OLIC PANEL anion gap 12.7 Not Available [facility] [address], [place], [address], 03/16/2022 18:37:34 03/16/20 22 03/16/2022 COMPR EHENS SKYE METAB OLIC PANEL blood urea nitrogen 12 mg/dL 6-24 normal Not Available [facility] [address], [place], [address], 03/16/2022 18:37:34 03/16/20 22 03/16/2022 COMPR EHENS SKYE METAB OLIC PANEL creatinine 0.8 mg/dL 0.5-1. 3 normal Not Available [facility] [address], [place], [address], 03/16/2022 18:37:34 03/16/20 22 03/16/2022 COMPR EHENS SKYE METAB OLIC PANEL glomerular filtration rate >60 >59 GFR Refer ence range : Great er than 60 mL/mi n/1.7 3 sq. meter s. Repor henri GFR value s are for non-A frica n Ameri cans. Afric an Ameri can value s shoul d be multi plied by 1.210 . Not Available [facility] [address], [place], [address], 03/16/2022 18:37:34 03/16/20 22 03/16/2022 COMPR EHENS SKYE METAB OLIC PANEL glucose 99 mg/dL 70-100 normal Not Available [facility] [address], [place], [address], 03/16/2022 18:37:34 03/16/20 22 03/16/2022 COMPR EHENS SKYE METAB OLIC PANEL calcium 9.6 mg/dL 8.4-10 .4 normal Not Available [facility] [address], [place], [address], 03/16/2022 18:37:34 03/16/20 22 03/16/2022 COMPR EHENS SKYE METAB OLIC PANEL bilirubin total 1.5 mg/dL 0.2-1. 3 high Not Available [facility] [address], [place], [address], 03/16/2022 18:37:34 03/16/20 22 03/16/2022 COMPR EHENS SKYE METAB OLIC PANEL AST 22 IU/l 14-36 normal Not Available [facility] [address], [place], [address], 03/16/2022 18:37:34 03/16/20 22 03/16/2022 COMPR EHENS SKYE METAB OLIC PANEL ALT 11 IU/L 1-34 normal Not Available [facility] [address], [place], [address], 03/16/2022 18:37:34 03/16/20 22 03/16/2022 COMPR EHENS SKYE METAB OLIC PANEL total protein 7.2 g/dL 6.0-8. 2 normal Not Available [facility] [address], [place], [address], 03/16/2022 18:37:34 03/16/20 22 03/16/2022 COMPR EHENS SKYE METAB OLIC PANEL albumin level 4.6 g/dL 3.5-5. 0 normal Not Available [facility] [address], [place], [address], 03/16/2022 18:37:34 03/16/20 22 03/16/2022 COMPR EHENS SKYE METAB OLIC PANEL alkaline phosphatase 52 IU/l 50-136 normal Not Available [facility] [address], [place], [address], 03/16/2022 18:37:34 03/16/20 22 03/16/2022 LIPID PANEL triglyceride s 81 mg/dL 1-210 normal Not Available [facility] [address], [place], [address], 03/16/2022 18:37:34 03/16/20 22 03/16/2022 LIPID PANEL cholesterol 115 mg/dL 100-20 0 normal Not Available [facility] [address], [place], [address], 03/16/2022 18:37:34 03/16/20 22 03/16/2022 LIPID PANEL LDL cholesterol 48 mg/dL 80-130 low Not Available [facility] [address], [place], [address], 03/16/2022 18:37:34 03/16/20 22 03/16/2022 LIPID PANEL VLDL cholesterol 16 mg/dL 5-60 normal Not Available [facility] [address], [place], [address], 03/16/2022 18:37:34 03/16/20 22 03/16/2022 LIPID PANEL HDL cholesterol 51 mg/dL 30-70 normal Not Available [facility] [address], [place], [address], 03/16/2022 18:37:34 03/16/20 22 03/16/2022 TSH FREE T4 free T4 free thyroxine 0.9 NG/dL 0.8-2. 2 normal Not Available [facility] [address], [place], [address], 03/16/2022 18:37:35 03/16/20 22 03/16/2022 TSH FREE T4 thyroid stimulating hormone 3.49 mIU/l 0.46-4 .68 normal Not Available [facility] [address], [place], [address], 03/16/2022 18:37:35 Result Notes None recorded. Problems Name Problem SNOMED Code Status Onset Date Resolution Date Notes Provider Name and Address Organization Details Recorded Time Patient encounter status 006727042 Active 2020 Encounter for routine adult health examinatio n with abnormal findings Not Available [facility] 2 23:21:38 Lupus erythemat osus 570420483 Active 2020 Lupus Not Available [facility] 2 23:21:39 Attention deficit hyperacti vity disorder 849688572 Active 2020 ADHD (attention deficit hyperactiv ity disorder) Not Available [facility] 2 23:21:38 Raynaud's disease 834017679 Active 2020 Raynauds disease Not Available [facility] 2 23:21:38 Problem Notes None recorded. Medical Equipment None Reported. Allergies Allergen ID Allergen Name Allergen Category Reaction Reaction Severity Criticality Documentation Date Start Date Code Code System Note Provider Name and Address Organization Details Recorded Time 19854 No Allergy Informati on Available Not available Not available Not available Not available 02/05/20222020 Not Available [facility] 2 22:26:43 No known drug allergies Medications Name Sig Start Date Stop Date Status Note LastModified by Organization Details LastModified Time dextroamphe tamine-amph etamine 10 mg tablet TAKE ONE TABLET BY MOUTH TWICE DAILY FOR 30 DAYS. LAST REFILL. NEED TO FIND A NEW PROVIDER. active Not Available Not Available No t Available prednisone 5 mg tablet TAKE 4 TABLETS BY MOUTH EVERY DAY FOR 3 DAYS, THEN TAKE 3 TABLETS BY MOUTH EVERY DAY FOR 3 DAYS, THEN TAKE 2 TABLETS BY MOUTH EVERY DAY FOR 3 DAYS, THEN TAKE 1 TABLET BY MOUTH EVERY DAY FOR 3 DAYS THEN STOP. 03/06 completed Not Available Not Available Not Available sulfamethox azole 800 mg-trimetho prim 160 mg tablet TAKE ONE TABLET BY MOUTH TWICE A DAY FOR 7 DAYS 03/06 completed Not Available Not Available Not Available Nitro-Bid 2 % transdermal ointment APPLY 1 INCH BY TRANSDERM AL ROUTE TO WEBBED SPACING BETWEEN FINGERS ON BILATERAL HANDS EVERY 8 HOURS AND REMOVE AT BEDTIME 03/23 completed Not Available Not Available Not Available cephalexin 500 mg capsule TAKE TWO CAPSULES BY MOUTH EVERY TWELVE HOURS with meals for 7 days 03/06 completed Not Available Not Available Not Available sertraline 25 mg tablet TAKE ONE TABLET BY MOUTH ONE TIME DAILY active Not Available Not Available No t Available mirtazapine 15 mg tablet TAKE ONE HALF TO ONE TABLET BY MOUTH EVERY NIGHT AT BEDTIME FOR MOOD AND ANXIETY. 03/06 completed Not Available Not Available Not Available dextroamphe tamine-amph etamine 5 mg tablet TAKE ONE TABLET BY MOUTH TWICE DAILY ADMINISTE R DOSES AT LEAST 4 TO 6 HOURS APART FOR 30 DAYS 03/06 completed Not Available Not Available Not Available nitrofurant oin monohydrate /macrocryst als 100 mg capsule TAKE ONE CAPSULE BY MOUTH EVERY TWELVE HOURS FOR 5 DAYS 03/06 completed Not Available Not Available Not Available Vitals Date Recorded Body height Body mass index (BMI) [Percentile] Per age and sex Body mass index (BMI) Body weight Heart rate Respiratory rate Oxygen saturation Body temperature Systolic And Diastolic Provider Name and Address Organization Details Last Updated DateTime 2 154.94 cm 8 % 18.2 kg/m2 25754.9 7 g 97 /min 18 /min 98 % 97.6 [degF] 110/80 mm[Hg] Francesca Xie [facility] 2 15:36:13 Date Recorded Body height Body mass index (BMI) Body mass index (BMI) [Percentile] Per age and sex Body weight Heart rate Respiratory rate Oxygen saturation Body temperature Systolic And Diastolic Provider Name and Address Organization Details Last Updated DateTime 2 154.94 cm 17.8 kg/m2 5 % 30433.0 8 g 82 /min 18 /min 98 % 98 [degF] 102/62 mm[Hg] Tanya Gold [place] [facility] 2 15:31:12 Social History None recorded. Functional Status None recorded. Mental Status None recorded. Family History Nothing Reported. Medical History No medical history recorded. Gynecological HistoryNo gynecological history recorded. Obstetrics History GPAL:G 0 P 0 0 0 0 Immunizations Vaccine Type Date Status Note Provider Nam e and Address Organization Details Recorded Time COVID-19, mRNA, LNP-S, PF, 30 mcg/0.3 mL dose 05/25/2021 completed Not Available [facility] 22:42:26 Past Encounters Encounter ID Performer Location Encounter Start Date Encounter Closed Date Diagnosis/Indication Diagnosis SNOMED-CT Code Diagnosis ICD10 Code Diagnosis IMO Codes Diagnosis Note [id number] ADILIA MORRISON NP [id number] [address] [place] [address] 02/08/2022 15:15:16 02/08/2022 17:13:35 Dysuria 93095594 R30.9 Acute urin pricilla tract infection 016210333 N39.0 Patients UA is positive for UTI, +2 protein, +3 blood, +1 bilirubin, +2 leukocyte esterase, RBC 50-100, WBC 20-50, bacteria trace. Prescribed Keflex twice a day x7 days to pharmacy. Encouraged increased fluids and adequate rest. Patient instructed to return to urgent care if symptoms persist or worsen. Return if worsening symptoms, specifical ly flank pain that is increasing , nausea, vomiting or fever or chills. Patient to make follow up appointmen t with primary care provider in 5-7 days. Patient indicated understand ing of plan of care, all question answered. [id number] Paxton Savage DNP [facility] [address] [place] [address] 03/23/2022 15:20:41 03/23/2022 16:43:10 Anxiety [id number] F41.9 Patient has been on sertraline previously tolerated medication well. Resume. Follow-up with myself with results of efficacy in 2 to 6 weeks. Seek immediate care for SI/HI. Attention deficit hyperactivity disorder [id number] F90.9 Well-contr olled on current dose Adderall which is continued. Adult heal th examination [id number] Z00.00 I73.00 F90.9 Reviewed labs, medication s, vaccines and screening exams with patient. Health Concerns Section Related Observation LastModified by Organization Detai ls LastModified Time None Recorded Concern Status LastModified by Organization Details LastModified Time None Recorded Advance Directives Directive None Recorded Payers Insurance Date Sequence Insurance Name Policy Number Policy Leon Covered Member ID Leon Member ID Guarantor Name 12/05/2022 1 [place]: [facility] 0 Tyree Gilbert [id number] Tyree Gilbert Notes Date Note Type Note Provider Name and Address Organization Details Recorded Time 02/08/2022 text/html ROS as noted in the HPI Patient presents today with complaint of burning with urination, urinary urgency, and blood in urine for 2 days. Patient denies sexual activity and states that she is not actively menstruating. She denies fever, abdominal pain, nausea, vomiting. ADILIA MORRISON, GRACE [address] [place] [address], [id number], [facility] 02/08/2022 17:03:23 03/23/2022 text/html ROS as noted in the HPI Tyree is a 22-year-old female patient of mine seen for annual exam. She like to get back on sertraline. States that her anxiety depression has been increased. Denies SI/HI. COVID-19 vaccine series complete. After requesting referral to urology patient has broken up with her boyfriend and stopped having recurrent UTIs since she has ceased having sexual activity with individual. We exchanged jokes about his personal hygiene rather than her personal hygiene. Not currently working. 1 exercising. Not on any specific diet. Offered age appropriate guidance, including: use of seatbelts, encouraged to have vaccines updated as necessary, healthy eating to include decreased refined carbohydrates, inclusion of fruits/vegetables in diet, limiting consumption of alcohol, limiting sun exposure. Patient deniesCardiovascula r: Chest pain/palpitations/s welling/edema/inabi lity to sleep flat in bedPulmonary: Shortness of breath, increased work of breathing, cough, snoring, OSAGI: change in bowel function or control, dark/tarry stools, GERD, nausea, vomiting, diarrheaGU: change in bladder function or control, incontinence, dribbling, burning, discharge, foul order or change in urine colorDerm: rash, lesionEndocrine: unexplained change in weight, increased thirst or urinary frequency, intolerance to heat or coldHEENT: change in vision, hearing, difficulty swallowing, oral lesions, mouth or tooth pain, dizziness, headacheNervous system: headache, change in vision, balance, numbness, tingling, disorientation, memory changeMusculoskelet al: arthralgias NOS, myalgias NOS, back pain NOSPsychological: denies suicidal ideation, homicidal ideation, insomnia NOS Portions of this record may have been created using voice recognition software. Occasional wrong-word or 'quqhe-[id number]' substitutions may have occurred due to the inherent limitations of voice recognition software. Read the chart carefully and recognize, using context, where substitutions have occurred. Paxton Savage, BEN [address] [place] [address], [id number], [facility] [place] 04/11/2022 13:29:12 OBGyn Episode No OBEpisode recorded.
--- OUTSIDE RECORDS SUMMARY | 2025-08-14 16:00 | XMS_ITS | Patient Health Record ---
Author Organization [facility] Address [address] [facility] [place] [address] Care Team Providers Care Molding And Trim Installer Name Role Phone Dr. Ja Malik Primary Care Provider Reason For Referral No Information Immunizations Vaccine [...] Date MEDICAID [place]IC [address] [place] [phone] [id number] Tyree Gilbert Self - patient is the insured
--- OUTSIDE RECORDS SUMMARY | 2025-08-14 16:01 | XMS_ITS | Clinical Summary ---
Author Organization [facility] Address [address] [place] [address] Care Team Providers Care Global Manager Name Role Phone Terrie Forde Deena INSTALLATION TECH Primary Care Provider [phone]- [phone] Allergies No known active allergies Medications Aripiprazole [...] Sex Assigned at Female 10/31/2024 7:30 PM RN TRANSITIONAL CARE Legal Sex Female 7:07 PM RN TRANSITIONAL CARE Gender Identity Female 03/14/2025 9:18 PM CDT [...] patient's age to complete this topic Insurance [facility] Care Teams Global Manager Relationship Specialty Start Date End Date Terrie Forde, GRACE [address] [place] [address] PCP - General Nurse Practitioner Family 10/31/24
[2025-08-14 17:32] LABS: Hematocrit 32.3 % (37.0-47.0); Hemoglobin 10.8 g/dL (12.0-15.0); Immature Granulocyte Percent A 0.5 % (0-0.5); Lymphocytes Absolute Auto 1.82 K/mm3 (0.9-3.2); Mean Corpuscular HGB Conc 33.4 g/dl (32-36); Mean Corpuscular Hemoglobin 28.0 pg (26-34); Mean Corpuscular Volume 83.7 fl (80-100); Nucleated Red Blood Cells Absolute Auto 0.000 K/mm3 (0.0-0.012); Nucleated Red Blood Cells Perc 0.0 % (0.0-0.2); Platelet Count Result 267 k/mm3 (150-375); Red Blood Count 3.86 M/mm3 (4.2-5.4); White Blood Count 8.8 K/mm3 (4.5-10.0)
[2025-08-14 17:43] LABS: Iron 55 ug/dL (37-170)
[2025-08-14 17:44] LABS: Glucose 1 Hour PP 50gm Dose 121 mg/dL
[2025-08-14 17:52] LABS: Percent Iron Saturation 10 % (20-50)
[2025-08-14 18:13] LABS: Syphilis IgG/IgM Antibody Non-Reactive (Nonreactive)
[2025-08-14 18:26] LABS: HIV 1/2 Ab P24 Ag Result Negative (Negative)
== END 2025-08-14 15:52 | disposition home or self-care (01) ==
LOC: ANHLAB 15:51
PROVIDERS: PCP Nurse Practitioner Family; Visit Provider Obstetrics & Gynecology
DX: Z34.90 Encounter for supervision of normal pregnancy, unspecified, unspecified trimester (principal); Z3A.00 Weeks of gestation of pregnancy not specified
CPT/HCPCS: 36415; 82947; 83540; 83550; 85025; 86593; 86703; G0432

== ENCOUNTER 2025-09-08 18:27 | Observation (INO) | payer OTHER, SELFPAY ==
[2025-09-08] VITALS (33 sets, daily range): BP systolic 105–118; BP diastolic 62–73; PULSE 91–121; TEMP 36.6; O2SAT 96–100; BMI 26.5
--- NOTE | 2025-09-08 18:27 | PC.NURSE ---
Pt arrives to unit with contractions that started at 1600 with pain 7 out of 10.
--- OUTSIDE RECORDS SUMMARY | 2025-09-08 18:36 | XMS_ITS | Clinical Summary ---
Author Organization [facility] Address [address] [place] [address] Care Team Providers Care Ice Cream Scooper Name Role Phone Terrie Forde Deena [employer] TECHNICIAN Primary Care Provider [phone]- [phone] Allergies No known active allergies Medications Aripiprazole [...] Sex Assigned at Female 10/31/2024 7:30 PM FIRE MARSHAL Legal Sex Female 7:07 PM FIRE MARSHAL Gender Identity Female 03/14/2025 9:18 PM CDT [...] patient's age to complete this topic Insurance [facility] [address] Care Teams Ice Cream Scooper Relationship Specialty Start Date End Date Terrie Forde, GRACE [address] [place] [address] PCP - General Nurse Practitioner Family 10/31/24
--- OUTSIDE RECORDS SUMMARY | 2025-09-08 18:36 | XMS_ITS | Clinical Summary ---
Author Organization [facility] [address] Address [address] [place] [address] Care Team Providers Care Director Consumer Name Role Phone Terrie Forde NP Primary Care Provider [phone] [phone] Allergies No known active allergies Medications dextroamphetamine- [...] patient's age to complete this topic Insurance [facility] Care Teams Director Consumer Relationship Specialty Start Date End Date Terrie Forde, ORE MINER [address] [place] [address] PCP - General Family Medicine 06/05/24
--- NOTE | 2025-09-08 19:52 | PC.NURSE ---
Called Dr. Conrad, update on pt, contractions 2 to 8 minutes, and tracing. Orders received to administer procardia 20 mg and perform SVE.
[2025-09-08 19:58] LABS: Add Urine Microscopic? NO; Appearance Urine Clear (Clear); Glucose Urine UA Negative (Negative); Leukocyte Esterase Ur Negative LEU/UL (Negative); Nitrate Urine Negative (Negative); Specific Grav Ur 1.013 (1.001-1.035)
--- NOTE | 2025-09-08 20:04 | PC.NURSE ---
SVE performed, cervix closed, posterior, and soft.
--- NOTE | 2025-09-08 20:09 | PC.NURSE ---
Pt calls to nurses station, reports possible leaking of fluid.
[2025-09-08 21:00] LABS: OBXCEM ROM Plus Negative (Negative)
--- NOTE | 2025-09-08 21:07 | PC.NURSE ---
Called Dr. Conrad, update on contractions, three in one hour, 7 to 14 minutes. Orders received to discharge pt with instructions to keep next scheduled appointment and when to return to the unit.
--- NOTE | 2025-09-08 21:26 | PC.NURSE ---
Pt discharged with instructions to PO hydrate with water, keep next scheduled appointment, and when to return to the unit, pt verbalizes understanding.
--- NOTE | 2025-09-08 21:35 | PC.NURSE ---
Addendum entered by Katerin Hutchins RN 09/08/25 21:37: Called Dr. Conrad at 2118, update on labs, no new orders at this time. Original Note: Called Dr. Conrad, update on labs. No new orders at this time.
--- NOTE | 2025-09-09 08:29 | P.PNOB_ITS ---
OB - Triage/Final Diagnosis Visit Information Date of evaluation: 09/08/25 Reason for evaluation: threatened labor Comments/Additional reasons for admission: I have assessed the risk for this patient, Tyree Gilbert, and determined that she would benefit from observation care. Evaluation Laboratory results: Laboratory Tests 09/08/25 09/08/25 18:44 20:23 Urine Color Yellow Urine Appearance Clear Urine pH 7.0 Ur Specific [place] 1.013 Urine Protein Negative Urine Glucose (UA) Negative Urine Ketones 3+ H Ur Blood (Man) Negative Urine Nitrate Negative Urine Bilirubin Negative Urine Urobilinogen 0.2 Leukocyte Esterase Rfl Negative Membranes Rupture Rom plus negative Vital signs: Vital Signs - 24 hr 09/08/25 18:49 09/08/25 18:54 09/08/25 18:54 Temperature Pulse Rate Blood Pressure Pulse Oximetry 99 97 Oxygen Delivery Room Air 09/08/25 18:59 09/08/25 19:00 09/08/25 19:04 Temperature Pulse Rate 101 H Blood Pressure 117/72 Pulse Oximetry 96 97 Oxygen Delivery 09/08/25 19:06 09/08/25 19:09 09/08/25 19:14 Temperature 98 F Pulse Rate Blood Pressure Pulse Oximetry 96 96 Oxygen Delivery 09/08/25 19:15 09/08/25 19:19 09/08/25 19:24 Temperature Pulse Rate 107 H Blood Pressure 116/72 Pulse Oximetry 97 96 Oxygen Delivery 09/08/25 19:29 09/08/25 19:30 09/08/25 19:34 Temperature Pulse Rate 101 H Blood Pressure 116/67 Pulse Oximetry 96 97 Oxygen Delivery 09/08/25 19:39 09/08/25 19:44 09/08/25 19:45 Temperature Pulse Rate 104 H Blood Pressure 110/69 Pulse Oximetry 96 96 Oxygen Delivery 09/08/25 19:49 09/08/25 19:54 09/08/25 19:59 Temperature Pulse Rate Blood Pressure Pulse Oximetry 96 98 99 Oxygen Delivery 09/08/25 20:00 09/08/25 20:21 09/08/25 20:26 Temperature Pulse Rate 98 Blood Pressure 118/73 Pulse Oximetry 100 100 Oxygen Delivery 09/08/25 20:30 09/08/25 20:31 09/08/25 20:36 Temperature Pulse Rate 108 H Blood Pressure 111/70 Pulse Oximetry 100 99 Oxygen Delivery 09/08/25 20:41 09/08/25 20:46 09/08/25 20:51 Temperature Pulse Rate Blood Pressure Pulse Oximetry 99 99 99 Oxygen Delivery 09/08/25 20:56 09/08/25 21:00 09/08/25 21:01 Temperature Pulse Rate 98 Blood Pressure 105/62 Pulse Oximetry 98 100 Oxygen Delivery 09/08/25 21:06 Temperature Pulse Rate Blood Pressure Pulse Oximetry 100 Oxygen Delivery
== END 2025-09-08 21:26 | disposition home or self-care (01) ==
PROVIDERS: Admitting Provider Student in an Organized Health Care Education/Training Program; PCP Nurse Practitioner Family; Visit Provider Student in an Organized Health Care Education/Training Program
DX: O47.03 False labor before 37 completed weeks of gestation, third trimester (principal); Z3A.32 32 weeks gestation of pregnancy
CPT/HCPCS: 81003; 84112; A9270; G0378; G0379